=== PATIENT | male | born 1965 ===

== ENCOUNTER 2020-06-28 14:27 | Outpatient (REF) | payer OTHER, SELFPAY | END 2020-06-28 14:28 | disposition home or self-care (01) | LOC: HO.LAB 14:27 | PROVIDERS: Visit Provider Internal Medicine | DX: Z20.822 Contact with and (suspected) exposure to COVID-19 (principal) | CPT/HCPCS: C9803; U0003; U0005 ==

== ENCOUNTER 2020-08-15 09:34 | Outpatient (REF) | payer OTHER, SELFPAY ==
[2020-08-15 09:57] LABS: MANUAL DIFF FLAG NO
[2020-08-15 10:01] LABS: Basophils Percent Auto 0.3 % (0-2); Eosinophils Absolute Auto 0.1 X10*3/uL (0.0-0.4); Eosinophils Percent Auto 1.6 % (0-4); Hematocrit 42.3 % (42-52); Hemoglobin 13.9 g/dl (14.0-18.0); Imm Gran Abs Auto 0.01 X10*3/uL (0.00-0.03); Imm Gran Pct Auto 0.1 % (0.0-0.4); Lymphocytes Absolute Auto 0.8 X10*3/uL (1.2-4.9); Lymphocytes Percent Auto 11.5 % (20-40); Mean Corpuscular HGB Conc 32.9 g/dl (31.0-36.0); Mean Corpuscular Hemoglobin 28.2 pg (27.0-33.0); Mean Corpuscular Volume 85.8 fL (80-98); Mean Platelet Volume 9.8 fL (9.4-12.4); Monocytes Absolute Auto 0.5 X10*3/uL (0.1-1.2); Monocytes Percent Auto 7.9 % (2-11); Neutrophils Absolute Auto 5.3 X10*3/uL (2.0-8.3); Neutrophils Percent Auto 78.6 % (45-73); Platelet Count 280 X10*3/uL (160-400); Red Blood Count 4.93 X10*6/uL (4.60-5.80); Red Cell Distribution Width 14.4 % (11.0-16.0); White Blood Count 6.7 X10*3/uL (4.8-10.8)
[2020-08-15 10:26] LABS: Alanine Aminotransferase 8 U/L (0-40); Albumin Level 4.3 g/dL (3.5-5.0); Alkaline Phosphatase 94 U/L (39-117); Anion Gap 15 (12-20); Aspartate Amino Transferase 10 U/L (5-37); Bilirubin Total 0.8 mg/dL (0.0-1.0); Blood Urea Nitrogen 21 mg/dL (9-16); Calcium 9.3 mg/dL (8.4-10.2); Carbon Dioxide 29 mmol/L (22-29); Chloride 104 mmol/L (96-108); Cholesterol 170 mg/dL; Estimated Glomerular Filt Rate > 60; Glucose Fasting 90 mg/dL (60-99); HDL Cholesterol 44 mg/dL; Iron 60 mcg/dL (45-160); LDL Cholesterol Calculated 113 mg/dl; Percent Iron Saturation 15 % (15-50); Potassium 4.6 mmol/L (3.3-5.1); Sodium 143 mmol/L (135-145); Total Iron Binding Capacity 401 mcg/dL (228-428); Total Protein 7.1 g/dL (6.5-8.0); Triglycerides 68 mg/dL; Unsaturated Iron Binding 341 ug/dL
[2020-08-19 18:51] LABS: Vitamin D 25-OH, D2 <4 ng/mL; Vitamin D 25-OH, D3 30 ng/mL; Vitamin D 25-OH, Total 30 ng/mL (30-100)
[2020-08-20 20:57] LABS: Parathyroid Hormone Related Pr 13 pg/mL (14-27)
== END 2020-08-15 09:35 | disposition home or self-care (01) ==
LOC: HO.LAB 09:34
PROVIDERS: PCP Internal Medicine; Visit Provider Internal Medicine
DX: E66.01 Morbid (severe) obesity due to excess calories (principal); E78.5 Hyperlipidemia, unspecified; E21.3 Hyperparathyroidism, unspecified; E55.9 Vitamin D deficiency, unspecified; D64.9 Anemia, unspecified
CPT/HCPCS: 36415; 80053; 80061; 82306; 82330; 83519; 83540; 85025

== ENCOUNTER → 2020-08-20 13:25 | Outpatient (BNV) | payer OTHER, SELFPAY | PROVIDERS: PCP Internal Medicine; Referring Provider Internal Medicine; Visit Provider Internal Medicine | DX: D50.9 Iron deficiency anemia, unspecified (principal) | CPT/HCPCS: 99213; 99214; G2211 ==

== ENCOUNTER 2021-08-04 14:22 | Outpatient (REF) | payer OTHER, SELFPAY ==
--- NOTE | ~2021-08-04 | US_ITS ---
EXAMINATION: US VENOUS ULTRASOUND WITH DOPPLER LOWER EXTREMITY, LEFT CLINICAL INFORMATION: Left lower extremity COMPARISON: None TECHNIQUE: Ultrasound of the deep veins is performed from the hip to the calf with compression sonography and color and pulse Doppler assessment. Spectral analysis with color-flow imaging is performed. FINDINGS: There is normal venous compression and respiratory variation and augmented flow. The visualized common femoral vein, superficial femoral vein, profunda femoral vein, popliteal vein, and the trifurcation region shows no evidence of deep venous thrombosis. There is no significant popliteal fossa cyst. If the patient's symptoms persist, followup ultrasound in 5 days 7 days might be of value to exclude proximal propagation from a non-visualized calf vein. US/US venous duplex LE LT IMPRESSION: No DVT demonstrated in the left lower extremity.
== END 2021-08-04 14:23 | disposition home or self-care (01) ==
LOC: HO.US 14:22
PROVIDERS: PCP Internal Medicine; Visit Provider Internal Medicine
DX: M79.605 Pain in left leg (principal); R60.0 Localized edema
CPT/HCPCS: 93971

== ENCOUNTER 2021-08-27 12:34 | Outpatient (REF) | payer OTHER, SELFPAY ==
--- NOTE | ~2021-08-27 | US_ITS ---
EXAMINATION: US VENOUS ULTRASOUND WITH DOPPLER LOWER EXTREMITY, LEFT CLINICAL INFORMATION: Pain in left leg. COMPARISON: None TECHNIQUE: Ultrasound of the deep veins is performed from the hip to the calf with compression sonography and color and pulse Doppler assessment. Spectral analysis with color-flow imaging is performed. FINDINGS: There is normal venous compression and respiratory variation and augmented flow. The visualized common femoral vein, superficial femoral vein, profunda femoral vein, popliteal vein, and the trifurcation region shows no evidence of deep venous thrombosis. There is no significant popliteal fossa cyst. Patient is unable to tolerate compression of proximal femoral and profunda veins. There is limited visualized of mid and distal superficial femoral and calf veins. If the patient's symptoms persist, followup ultrasound in 5 days 7 days might be of value to exclude proximal propagation from a non-visualized calf vein. US/US venous duplex LE IMPRESSION: No DVT demonstrated in the left lower extremity. Slightly limited visualization of superficial mid and distal femoral veins and calf veins
--- NOTE | ~2021-08-27 | XR_ITS ---
EXAMINATION: LUMBAR SPINE AND LEFT HIP CLINICAL INFORMATION: Low back pain. COMPARISON: None TECHNIQUE: Left hip 2 views lumbar spine 3 views. FINDINGS: Lumbar spine: There is normal lumbar lordosis. The vertebral heights and alignment is normal. There is mild ventral spondylosis L2-L3, L3-L4 disc levels. There is mild bilateral L5-S1 facet joint hypertrophy and arthropathy. No acute fracture or lytic process seen. The SI joints are symmetrical and normal. XR/XR lumbar spine 2-3V IMPRESSION: Moderate left L3-L4 and L4-L5 facet joint arthropathy. No visible acute fracture or dislocation seen.
--- NOTE | ~2021-08-27 | XR_ITS ---
EXAMINATION: LUMBAR SPINE AND LEFT HIP CLINICAL INFORMATION: Low back pain. COMPARISON: None TECHNIQUE: Left hip 2 views lumbar spine 3 views. FINDINGS: Lumbar spine: There is normal lumbar lordosis. The vertebral heights and alignment is normal. There is mild ventral spondylosis L2-L3, L3-L4 disc levels. There is mild bilateral L5-S1 facet joint hypertrophy and arthropathy. No acute fracture or lytic process seen. The SI joints are symmetrical and normal. XR/XR hip LT min 2V IMPRESSION: Moderate left L3-L4 and L4-L5 facet joint arthropathy. No visible acute fracture or dislocation seen.
== END 2021-08-27 12:35 | disposition home or self-care (01) ==
LOC: HO.US 12:34
PROVIDERS: PCP Internal Medicine; Visit Provider Internal Medicine
DX: M54.50 Low back pain, unspecified (principal); M25.552 Pain in left hip; M79.605 Pain in left leg
CPT/HCPCS: 72100; 73502; 93971

== ENCOUNTER 2022-01-23 17:20 | Inpatient (IN) | payer OTHER, SELFPAY ==
[2022-01-23] VITALS (9 sets, daily range): BP systolic 104–138; BP diastolic 54–75; PULSE 88–148; RESP 15–21; TEMP 36.7–37.6; O2SAT 96–98; BMI 60.9
--- NOTE | 2022-01-23 | ECG_ITS ---
Test Reason : TACHYCARDIA Blood Pressure : / mmHG Vent. Rate : 116 BPM Atrial Rate : 293 BPM P-R Int : 000 ms QRS Dur : 090 ms QT Int : 244 ms P-R-T Axes : 261 030 229 degrees QTc Int : 339 ms Atrial flutter with variable A-V block Nonspecific ST and T wave abnormality RSR' or QR pattern in V1 suggests right ventricular conduction delay Abnormal ECG When compared with ECG of 23-JAN-2022 18:09, No significant changes seen Referred By: Nani Holloway Electronically Signed By:MAURICE DUMAS MD
--- NOTE | ~2022-01-23 | CT_ITS ---
EXAMINATION: CT HEAD WITHOUT CONTRAST CLINICAL INFORMATION: Headache COMPARISON: None TECHNIQUE: Contiguous axial imaging was performed from the skull base to vertex without intravenous administration of contrast. This CT examination was performed using dose optimization techniques as appropriate, variously including the following: *Automated exposure control *Adjustment of mA and/or kV according to patient size (this includes techniques or standardized protocols for targeted exams where dose is matched to indication/reason for exam; i.e. extremities or head) *Use of iterative reconstruction technique DLP: 903 mGy-cm FINDINGS: RESULTS: There is no evidence of acute intracranial hemorrhage, acute large vessel infarct, midline shift or mass effect. The lo-white differentiation is preserved. The ventricles and sulci are within normal limits in size and configuration. There is no evidence of hydrocephalus. There are no extraaxial collections. Osseous structures are intact. Paranasal sinuses and mastoid air cells are well aerated. CT/CT head/brain wo IV con IMPRESSION: No acute intracranial pathology.
--- NOTE | ~2022-01-23 | CT_ITS ---
EXAMINATION: CT ANGIOGRAM OF THE CHEST WITH AND WITHOUT CONTRAST (CT PULMONARY ANGIOGRAM FOR PE) CLINICAL INFORMATION: Reason for Exam + dimer, sob COMPARISON: None TECHNIQUE: Prior to contrast administration, noncontrast localization images were obtained. Subsequently, multidetector volumetric imaging was performed from the thoracic inlet to below the diaphragms following the administration of 75 mL Omnipaque 350 intravenous contrast. No contrast reaction reported Sagittal, coronal, and MIP oblique sagittal reformatted images were obtained on the CT workstation, uploaded to PACS, and reviewed. This CT examination was performed using dose optimization techniques as appropriate, variously including the following: *Automated exposure control *Adjustment of mA and/or kV according to patient size (this includes techniques or standardized protocols for targeted exams where dose is matched to indication/reason for exam; i.e. extremities or head) *Use of iterative reconstruction technique Total exam dose-length product 687 mGy-cm FINDINGS: QUALITY OF STUDY/CONTRAST BOLUS: Suboptimal. PULMONARY ARTERIES: No central or segmental pulmonary emboli. THORACIC AORTA: No aneurysm or dissection. LUNG: No focal consolidation, nodules or masses. PLEURA: No pleural effusion or pneumothorax. MEDIASTINUM: Enlarged heart size. No pericardial effusion. Small calcified mediastinal and right hilar lymph nodes.. No evidence of septal bowing or right heart strain. CHEST WALL/AXILLA: No axillary or internal mammary lymphadenopathy. OSSEOUS STRUCTURES: No acute or suspicious osseous abnormality. UPPER ABDOMEN: Large hiatal hernia. No reflux of contrast into the hepatic veins to suggest elevated right heart pressures. Multiple nonobstructing left renal calculi. CT/CT angio chest PE protocol IMPRESSION: 1. No pulmonary embolism. 2. Large hiatal hernia. 3. Multiple nonobstructing left renal calculi. VTE: negative
--- NOTE | ~2022-01-23 | XR_ITS ---
EXAMINATION: XR CHEST CLINICAL INFORMATION: Chest pain COMPARISON: 05/02/2008 TECHNIQUE: Frontal view of the chest was obtained. FINDINGS: There is mild cardiomegaly. Moderate sized hiatal hernia is present. No infiltrates, effusions or lung masses are seen. XR/XR chest 1V IMPRESSION: Mild cardiomegaly. No acute intrathoracic disease.
--- NOTE | 2022-01-23 18:06 | PC.NURSE ---
Provider Dr. Tavarez and Shelley Silva aware of patients HR and are at bedside
--- NOTE | 2022-01-23 18:08 | ECG_ITS ---
Test Reason : DYSPENIA Blood Pressure : / mmHG Vent. Rate : 141 BPM Atrial Rate : 282 BPM P-R Int : 000 ms QRS Dur : 084 ms QT Int : 252 ms P-R-T Axes : 253 029 241 degrees QTc Int : 385 ms Atrial flutter with variable A-V block Nonspecific ST and T wave abnormality RSR' or QR pattern in V1 suggests right ventricular conduction delay Abnormal ECG No previous ECGs available Referred By: Annie Silva Electronically Signed By:MAURICE DUMAS MD
[2022-01-23] MEDS: Adenosine 6 MG/2 ML VIAL IVPUSH (18:25)
[2022-01-23 18:27] LABS: MANUAL DIFF FLAG NO
[2022-01-23 18:29] LABS: Basophils Absolute Auto 0.1 X10*3/uL (0.0-0.2); Basophils Percent Auto 0.6 % (0-2); Eosinophils Absolute Auto 0.1 X10*3/uL (0.0-0.4); Imm Gran Abs Auto 0.05 X10*3/uL (0.00-0.03); Imm Gran Pct Auto 0.6 % (0.0-0.4); Lymphocytes Absolute Auto 0.7 X10*3/uL (1.2-4.9); Lymphocytes Percent Auto 8.9 % (20-40); Mean Corpuscular HGB Conc 26.5 g/dl (31.0-36.0); Mean Corpuscular Hemoglobin 15.6 pg (27.0-33.0); Monocytes Absolute Auto 0.9 X10*3/uL (0.1-1.2); Monocytes Percent Auto 10.5 % (2-11); NRBC Pct Auto 0.2 /100WBC (0.0-0.2); Neutrophils Absolute Auto 6.3 x10*3/uL (2.0-8.3); Neutrophils Percent Auto 78.4 % (45-73); Platelet Count 354 X10*3/uL (160-400); Red Blood Count 3.15 X10*6/uL (4.60-5.80); Red Cell Distribution Width 21.6 % (11.0-16.0); White Blood Count 8.1 X10*3/uL (4.8-10.8)
[2022-01-23 18:36] LABS: Mean Corpuscular Volume 58.7 fL (80.0-98.0)
[2022-01-23 18:38] LABS: D Dimer High Sensitivity 320 NG/ML
[2022-01-23] MEDS: Adenosine 6 MG/2 ML VIAL 12 MG IVPUSH (18:38)
[2022-01-23 18:40] LABS: Hematocrit 18.5 % (42.0-52.0); Hemoglobin 4.9 g/dl (14.0-18.0)
[2022-01-23] MEDS: dilTIAZem HCL 50 MG/10 ML VIAL 10 MG IVPUSH (18:41)
--- NOTE | 2022-01-23 18:45 | ED_ITS ---
HPI - SOB/Dyspnea General Chief Complaint: Dyspnea Stated Complaint: difficulty breathing dry mouth chest pain Time Seen by Provider: 01/23/22 17:58 Source: patient Mode of arrival: ambulatory Limitations: no limitations History of Present Illness HPI Narrative: 56-year-old male history of hypertension presenting to the emergency department with concerns of chest pain, shortness of breath, palpitations x2 days pr ogressively worsening. Patient tells me that since yesterday he has been having significant palpitations that are very uncomfortable and have been prohibiting him from sleeping, he tells me he had a sleepless night. He reports substernal nonradiating chest pain. And shortness of breath with exertion. Tells me he is not short of breath at rest. Patient tells me that this is never happened to h im before. Patient also notices that his mouth has been dry for the past month or so. Patient is not anticoagulated. No history of DVT or PE. To note patient also has vague complaints of occipital headache. Denies cough, nausea, vomiting, abdominal pain, vision changes, weakness, dizziness. MD elicited complaint: shortness of breath and chest pain Related Data Home Medications Medication Instructions Recorded Confirmed aspirin 325 mg tablet 325 mg PO BID PRN Pain (Scale 01/23/22 01/23/22 Score 1-3) [id number] 0.4 mg-calcium 162 1 tab PO 2XW 01/23/22 01/23/22 mg-iron 18 ti-[id number] tablet omeprazole 20 mg capsule,delayed 20 mg PO DAILY@0630 01/23/22 01/23/22 release sulindac 200 mg tablet 1 tab PO BID 01/23/22 01/23/22 Previous Rx's Medication Instructions Recorded lidocaine 5 % topical patch 1 patch topical DAILY 30 days #30 12/29/20 ea hydrochlorothiazide 25 mg tablet 25 mg PO DAILY 90 days #90 tabs 03/14/21 Allergies Allergy/AdvReac Type Severity Reaction Status Date / Time Penicillins [PENICILLINS] Allergy Intermediate ITCHING Verified 08/26/21 13:50 SEAFOOD Allergy Intermediate ITCHING/THROAT Uncoded 08/26/21 13:50 SWELLING shellfish Allergy Intermediate rash Uncoded 08/26/21 13:50 Review of Systems Review of Systems: Constitutional : No Weight loss, No Fever, No Chills, No Fatigue, No Malaise ENT/Mouth : No sore throat, No Rhinorrhea Eyes: No Eye Pain, No Swelling, No Redness Cardiovascular : + Chest Pain, + SOB, + Dyspnea on Exertion, No Orthopnea, No Edema, No Palpitations Respiratory : No Cough, No Sputum, No Wheezing Gastrointestinal : No Nausea, No Vomiting, No Diarrhea, No Constipation, No abdominal Pain, No Hematochezia, No Melena Genitourinary : No Dysuria, No Urinary Frequency, No Hematuria, Musculoskeletal : No joint pain, No Myalgias, No Joint Swelling Skin : No Skin Lesions, No rash Neuro : No Weakness, No Numbness, No Dizziness, + Headache Psych : No Anxiety/Panic, No Depression All other systems reviewed and are negative Yes all other systems are reviewed and are negative [facility] Past Medical History Attestation statement: The following information was validated with the patient. Source: old records reviewed and nursing notes reviewed Medical History Encounter for physical examination Hypoparathyroidism after procedure Iron deficiency anemia Left leg pain Renal calculi Super-super obese Surgical History History of parathyroid surgery Family History Family History Mother Hypertension Father Colon cancer, Onset Age: 82 Stroke Social History Social History Housing: House Alcohol intake: former Patient Tobacco Use Status: Former Tobacco user Tobacco use type: Cigarette e-Cigarette/Vaping Use: Never Used Second Hand Smoke Exposure: No Advance Directives: No Advance Directives Information Provided: No service: No Current occupational status: unemployed Cognitive needs: Yes Hearing needs: No Vision needs: Yes Physical Exam 2 Vital Signs: Vital Signs: Last Vital Signs Temp 99.3 F 01/23/22 22:06 Pulse 117 H 01/23/22 22:06 Resp 20 01/23/22 22:06 BP 134/69 01/23/22 22:06 Pulse Ox 97 01/23/22 22:06 O2 Del Method 01/23/22 22:06 BMI result Body Mass Index 60.9 Patient's vital significant for tachycardia. Appearance: Alert.? Oriented X3.? No acute distress.? Head: Normocephalic, atraumatic, no step-offs or deformities Eyes: Pupils equal, round and reactive to light.? Neck: Normal inspection.? Neck supple.? CVS: Rapid regular rhythm suspected sinus tachycardia.? Pulses irregular.? Respiratory: No respiratory distress.? Breath sounds normal.? Abdomen: Soft and nontender.? Skin: Skin warm and dry.? Normal skin color.? Normal skin turgor.? Extremities: No lower extremity edema.? No calf ttp. 5/5 strength to bilateral upper and lower extremities Rectal exam: no acute findings, no gross blood on exam,no palpable hemorrhoids, lumps or masses. Neuro: Oriented X 3.? No motor deficit.? No sensory deficit. CN 2-12 intact Course Reevaluation(s) Reevaluation #1: Patient's CBC with a microcytic anemia 4.9, 18.54 hemoglobin and hematocrit. This deviates significantly from patient's baseline. Will obtain OBS to rule out rectal bleeding. Chemistry with no acute findings. Troponin of 12.7, BNP of 96, unlikely that this is ACS or CHF. Patient's D-dimer is elevated therefore will order a CTA to rule out PE. I obtained verbal and written consent for blood products, patient verbalizes understanding, answered all questions. 2 units of packed red blood cells ordered. Patient is now in a atrial flutter with a rate of 130s 140s, rate is slowing down, patient feels slightly better, on a Cardizem drip. I did reach out to Cardiology to discuss this case with them they tell me that patient should be transfused patient's heart rate should respond. Time: 19:16 Reevaluation #2: Chest x-ray showing mild cardiomegaly no acute intrathoracic disease. Head CT with no acute findings. CTA with no pulmonary embolism, large hiatal hernia, nonobstructing left renal stones. VT negative. Time: 20:28 Reevaluation #3: OBS + will reach out to GI. Time: 21:40 Additional Reevaluation(s): Spoke to Dr. Haynes no need to do emergent colonoscopy, patient and will be evaluated by GI in the hospital. Medications Administered Generic Name Dose Route Start Last Admin Trade Name Freq PRN Reason Stop Dose Admin Diltiazem HCl 125 mg/ Sodium 125 mls @ 0 mls/hr 01/23/22 19:00 01/23/22 19:07 Chloride IVCONT 10 mg/hr .Q0M JLUIS 10 mls/hr Administration Protocol Per Protocol Discontinued Medications Generic Name Dose Route Start Last Admin Trade Name Yen PRN Reason Stop Dose Admin Adenosine 6 mg 01/23/22 18:08 01/23/22 18:25 Adenosine 6 Mg/2 Ml Vial IVPUSH 01/23/22 18:09 6 mg STAT STA Administration Adenosine 12 mg 01/23/22 18:44 01/23/22 18:38 Adenosine 6 Mg/2 Ml Vial IVPUSH 01/23/22 18:45 12 mg ONCE ONE Administration Diltiazem HCl 10 mg 01/23/22 18:38 01/23/22 18:41 Diltiazem Hcl 50 Mg/10 Ml Vial IVPUSH 01/23/22 18:39 10 mg STAT STA Administration Iohexol 100 ml 01/23/22 20:05 01/23/22 20:05 Iohexol 350 Mg/Ml 100 Ml Infus..Btl IV 01/23/22 20:06 75 ml ONCE ONE Administration Metoprolol Tartrate 2.5 mg 01/23/22 21:57 01/23/22 22:08 Metoprolol Tartrate 5 Mg/5 Ml Vial IVPUSH 01/23/22 21:58 2.5 mg ONCE ONE Administration MDM - SOB/Dyspnea MDM Narrative Medical decision making narrative: 1771 56-year-old male presents with chest pain, shortness of breath, palpitations x2 days progressively worsening. Physical examination with a rapid regular rhythm rhythm likely sinus tachycardia. Lungs clear. Abdomen soft nontender nondistended. 2+ nonpitting edema to bilateral lower extremities. Patient is noted to have a heart rate in the 140s to 160s. However patient appears well, nontoxic. 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 Immediately 6 of adenosine was ordered, with no response, an additional 12 was given which slowed the rhythm down show an underlying rhythm of atrial flutter. At this time Cardizem 10 mg ordered and Cardizem drip ordered. Will rule out PE, ACS, CHF. Will rule out electrolyte abnormalities. Medical Records Attestation: I reviewed the patient's medical records. Lab Data Attestation: I reviewed the patient's lab results. Result diagrams: 01/23/22 18:22 01/23/22 18:22 Labs: Lab Results 01/23/22 01/23/22 01/23/22 Range/Units 18:22 18:22 18:22 WBC 8.1 (4.8-10.8) X10*3/uL RBC 3.15 L (4.60-5.80) X10*6/uL Hgb 4.9 L* (14.0-18.0) g/dl Hct 18.5 L* (42.0-52.0) % MCV 58.7 L (80.0-98.0) fL MCH 15.6 L (27.0-33.0) pg MCHC 26.5 L (31.0-36.0) g/dl RDW 21.6 H (11.0-16.0) % Plt Count 354 (160-400) X10*3/uL MPV 9.0 L (9.4-12.4) fL Immature Gran % (Auto) 0.6 H (0.0-0.4) % Neut % (Auto) 78.4 H (45-73) % Lymph % (Auto) 8.9 L (20-40) % Mineral % (Auto) 10.5 (2-11) % Eos % (Auto) 1.0 (0-4) % Baso % (Auto) 0.6 (0-2) % Lymph # (Auto) 0.7 L (1.2-4.9) X10*3/uL Mineral # (Auto) 0.9 (0.1-1.2) X10*3/uL Eos # (Auto) 0.1 (0.0-0.4) X10*3/uL Baso # (Auto) 0.1 (0.0-0.2) X10*3/uL Abs Immat Gran (auto) 0.05 H (0.00-0.03) X10*3/uL Absolute Neuts (auto) 6.3 (2.0-8.3) x10*3/uL Absolute Nucleated RBC 0.020 H (0.0-0.012) X10*3/uL Nucleated RBC % (auto) 0.2 (0.0-0.2) /100WBC D-Dimer High Sensitivty 320 NG/ML Sodium 139 (135-145) mmol/L Potassium 4.1 (3.3-5.1) mmol/L Chloride 105 (96-108) mmol/L Carbon Dioxide 25 (22-29) mmol/L Anion Gap 13 (12-20) BUN 16 (9-16) mg/dL Creatinine 0.80 (0.5-1.4) mg/dL Estim Creat Clear Calc 154.2 Estimated GFR > 60 Random Glucose 97 (60-115) mg/dL Calcium 8.9 (8.4-10.2) mg/dL Magnesium 1.6 (1.6-2.6) mg/dL Total Bilirubin 0.4 (0.0-1.0) mg/dL AST 8 (5-37) U/L ALT 9 (0-40) U/L Alkaline Phosphatase 104 (39-117) U/L Troponin I High Sens (<3.5-35.0) ng/L B-Natriuretic Peptide (<100) pg/mL Total Protein 6.6 (6.5-8.0) g/dL Albumin 4.0 (3.5-5.0) g/dL Stool Occult Blood (NEGATIVE) Blood Type Antibody Screen Crossmatch 01/23/22 01/23/22 01/23/22 Range/Units 18:22 18:22 19:22 WBC (4.8-10.8) X10*3/uL RBC (4.60-5.80) X10*6/uL Hgb (14.0-18.0) g/dl Hct (42.0-52.0) % MCV (80.0-98.0) fL MCH (27.0-33.0) pg MCHC (31.0-36.0) g/dl RDW (11.0-16.0) % Plt Count (160-400) X10*3/uL MPV (9.4-12.4) fL Immature Gran % (Auto) (0.0-0.4) % Neut % (Auto) (45-73) % Lymph % (Auto) (20-40) % Mineral % (Auto) (2-11) % Eos % (Auto) (0-4) % Baso % (Auto) (0-2) % Lymph # (Auto) (1.2-4.9) X10*3/uL Mineral # (Auto) (0.1-1.2) X10*3/uL Eos # (Auto) (0.0-0.4) X10*3/uL Baso # (Auto) (0.0-0.2) X10*3/uL Abs Immat Gran (auto) (0.00-0.03) X10*3/uL Absolute Neuts (auto) (2.0-8.3) x10*3/uL Absolute Nucleated RBC (0.0-0.012) X10*3/uL Nucleated RBC % (auto) (0.0-0.2) /100WBC D-Dimer High Sensitivty NG/ML Sodium (135-145) mmol/L Potassium (3.3-5.1) mmol/L Chloride (96-108) mmol/L Carbon Dioxide (22-29) mmol/L Anion Gap (12-20) BUN (9-16) mg/dL Creatinine (0.5-1.4) mg/dL Estim Creat Clear Calc Estimated GFR Random Glucose (60-115) mg/dL Calcium (8.4-10.2) mg/dL Magnesium (1.6-2.6) mg/dL Total Bilirubin (0.0-1.0) mg/dL AST (5-37) U/L ALT (0-40) U/L Alkaline Phosphatase (39-117) U/L Troponin I High Sens 12.7 (<3.5-35.0) ng/L B-Natriuretic Peptide 96 (<100) pg/mL Total Protein (6.5-8.0) g/dL Albumin (3.5-5.0) g/dL Stool Occult Blood (NEGATIVE) Blood Type A Positive Antibody Screen NEGATIVE Crossmatch See Detail 01/23/22 Range/Units 21:44 WBC (4.8-10.8) X10*3/uL RBC (4.60-5.80) X10*6/uL Hgb (14.0-18.0) g/dl Hct (42.0-52.0) % MCV (80.0-98.0) fL MCH (27.0-33.0) pg MCHC (31.0-36.0) g/dl RDW (11.0-16.0) % Plt Count (160-400) X10*3/uL MPV (9.4-12.4) fL Immature Gran % (Auto) (0.0-0.4) % Neut % (Auto) (45-73) % Lymph % (Auto) (20-40) % Mineral % (Auto) (2-11) % Eos % (Auto) (0-4) % Baso % (Auto) (0-2) % Lymph # (Auto) (1.2-4.9) X10*3/uL Mineral # (Auto) (0.1-1.2) X10*3/uL Eos # (Auto) (0.0-0.4) X10*3/uL Baso # (Auto) (0.0-0.2) X10*3/uL Abs Immat Gran (auto) (0.00-0.03) X10*3/uL Absolute Neuts (auto) (2.0-8.3) x10*3/uL Absolute Nucleated RBC (0.0-0.012) X10*3/uL Nucleated RBC % (auto) (0.0-0.2) /100WBC D-Dimer High Sensitivty NG/ML Sodium (135-145) mmol/L Potassium (3.3-5.1) mmol/L Chloride (96-108) mmol/L Carbon Dioxide (22-29) mmol/L Anion Gap (12-20) BUN (9-16) mg/dL Creatinine (0.5-1.4) mg/dL Estim Creat Clear Calc Estimated GFR Random Glucose (60-115) mg/dL Calcium (8.4-10.2) mg/dL Magnesium (1.6-2.6) mg/dL Total Bilirubin (0.0-1.0) mg/dL AST (5-37) U/L ALT (0-40) U/L Alkaline Phosphatase (39-117) U/L Troponin I High Sens (<3.5-35.0) ng/L B-Natriuretic Peptide (<100) pg/mL Total Protein (6.5-8.0) g/dL Albumin (3.5-5.0) g/dL Stool Occult Blood POSITIVE (NEGATIVE) Blood Type Antibody Screen Crossmatch Critical Care Time Critical Care Time Critical Care Time: Yes Total Critical Care Time: 60 Attestation: I attest to this time spent taking care of the patient, obtaining history, physical, reviewing labs, imaging, speaking to my attending, speaking to specialist. Discharge Plan Discharge Clinical Impression: Atrial flutter, Anemia, Chest pain, Shortness of breath, Palpitations, GI bleed Patient Disposition: Admitted As Inpatient
[2022-01-23 18:49] LABS: Alanine Aminotransferase 9 U/L (0-40); Alkaline Phosphatase 104 U/L (39-117); Anion Gap 13 (12-20); Aspartate Amino Transferase 8 U/L (5-37); Bilirubin Total 0.4 mg/dL (0.0-1.0); Blood Urea Nitrogen 16 mg/dL (9-16); Calcium 8.9 mg/dL (8.4-10.2); Carbon Dioxide 25 mmol/L (22-29); Chloride 105 mmol/L (96-108); Creatinine Clr Calc Pharmacy 154.2; Estimated Glomerular Filt Rate > 60; Glucose Random 97 mg/dL (60-115); Magnesium 1.6 mg/dL (1.6-2.6); Potassium 4.1 mmol/L (3.3-5.1); Sodium 139 mmol/L (135-145); Total Protein 6.6 g/dL (6.5-8.0)
[2022-01-23 18:50] LABS: B Type Natriuretic Peptide 96 pg/mL (<100)
[2022-01-23 18:56] LABS: Troponin-I High Sensitivity 12.7 ng/L (<3.5-35.0)
[2022-01-23] MEDS: dilTIAZem HCL 125 MG in 0.9 % Sodium Chloride 100 ML 10 MG IVCONT (19:07)
--- NOTE | 2022-01-23 19:09 | PC.NURSE ---
20g IV access established in left AC by this RN. Was given Adenosine 6mg, then Adenosine 12mg as ordered by MAHIN Silva. Diltiazem 10mg administered via IV push. Diltiazem drip initiated at 19:07 on 01/23/22 by this RN. Patient's is at bedside. Consent obtained & signed to receive blood products for low Hematocrit/Hemoglobin. HR 130-140s at this time. Primary RN (Dmitriy) aware.
[2022-01-23] MEDS: iohexoL 350 MG/ML 100 ML INFUS..BTL IV (20:05)
--- NOTE | 2022-01-23 20:07 | PC.NURSE ---
patient alert, oriented x4. he endorses 6-7/10 chest tightness radiating to his back. HR aflutter 120s-130s on max dilt drip 15mg/hr.
--- NOTE | 2022-01-23 20:47 | PHA.MEDREC ---
Pharmacy Consult ? Medication Reconciliation Pharmacy has completed the medication reconciliation. Spoke with patient in the ED
[2022-01-23 21:51] LABS: OBS1 POSITIVE (NEGATIVE)
[2022-01-23 21:52] LABS: OBS Int Ctl Valid YES
--- NOTE | 2022-01-23 22:07 | PM.IMHP ---
History of Present Illness Date of Service: 01/23/22 Chief Complaint: palpitations 56-year-old male with past medical history of hypertension, presents the hospital with complaints of chest discomfort and palpitations. Patient reports that his symptoms started 2 days with progressively worsening symptoms. He reports the pain/discomfort in the chest is on the left side, worse with deep inspiration, nonradiating, constant, rest. He also reports that he has pain when he moves. He denies any dizziness, he has been feeling short of breath with minimal exertion. Reports chronic anemia since childhood, for which he takes artery supplement but has not been taking his iron supplement as he was told that his levels were better on previous visits with his doctor. Denies any melena, but reports sometimes when he is constipated he has some bleeding mostly when he wipes. Patient denies any abdominal pain nausea or vomiting, no diarrhea constipation, no urinary symptoms and no lower extremity edema. On arrival to the ED patient was found to have a heart rate in the 140s to 150s, patient started on Cardizem drip with improvement of his heart rate. Labs on arrival significant for hemoglobin of 4.9 with a baseline of around 10, hematocrit of 18.5, stool occult positive. Chest CT angiogram shows no pulmonary embolism, large hiatal hernia, multiple nonobstructing left renal calculi Troponin of 12.7, BNP of 96 Review of Systems Review of Systems: Yes all other systems are reviewed and are negative [facility] Medical History Encounter for physical examination Hypoparathyroidism after procedure Iron deficiency anemia Left leg pain Renal calculi Super-super obese Family History Mother Hypertension Father Colon cancer, Onset Age: 82 Stroke Surgical History History of parathyroid surgery Social History Household Members: Spouse Housing: House Do you presently have visiting nurse or other home services: No Alcohol intake: former Patient Tobacco Use Status: Former Tobacco user Tobacco use type: Cigarette Smoked in Last 30 Days: No e-Cigarette/Vaping Use: Never Used Patient Interested in Nicotine Replacement: No Patient Given Instructions on How to Stop Smoking: No Second Hand Smoke Exposure: No Use of substances other than those prescribed or required for medical reasons: No Currently Displaying Signs/Symptoms of Drug Intoxication Withdrawal: No Any prior treatment program specific to substance use: No Have you been hit, kicked, punched, or otherwise hurt by someone within the past year? If so, by whom?: No Do you feel safe in your current relationship?: Yes Is there a partner from a previous relationship who is making you feel unsafe now?: No Are you made to feel afraid or neglected: No Advance Directives: No Advance Directives Information Provided: No Do you have thoughts of harming others: None Do you have a plan to hurt others: No Plan Recently lost weight without trying: No Eating poorly because of decreased appetite: No Nutrition Risks: No Nutritional Risk Poor oral hygiene: No service: No Current occupational status: unemployed Cognitive needs: Yes Hearing needs: No Vision needs: Yes Meds Allergies Allergy/AdvReac Type Severity Reaction Status Date / Time Penicillins [PENICILLINS] Allergy Intermediate ITCHING Verified 08/26/21 13:50 SEAFOOD Allergy Intermediate ITCHING/THROAT Uncoded 08/26/21 13:50 SWELLING shellfish Allergy Intermediate rash Uncoded 08/26/21 13:50 Active Medications: Current Medications Diltiazem HCl 125 mg/ Sodium (Chloride) 125 mls @ 0 mls/hr IVCONT .Q0M [facility]; Protocol Last Admin: 01/23/22 19:07 Dose: 10 mg/hr, 10 mls/hr Pharmacy Consult (Consult Rx Perform Med Rec) 1 each MISCELLANE ONCE PRN PRN Reason: Consult order Home Medications Medication Instructions Recorded Confirmed Last Taken Type aspirin 325 mg tablet 325 mg PO BID PRN Pain (Scale 01/23/22 01/23/22 01/23/22 History Score 1-3) [id number] 0.4 mg-calcium 162 1 tab PO 2XW 01/23/22 01/23/22 Unknown History mg-iron 18 [id number] tablet omeprazole 20 mg capsule,delayed 20 mg PO DAILY@0630 01/23/22 01/23/22 01/22/22 History release sulindac 200 mg tablet 1 tab PO BID 01/23/22 01/23/22 01/22/22 History Physical Exam Vital Signs and Narrative: Vital Signs: Last Vital Signs Temp 99.6 F 11/25/22 21:37 Pulse 113 H 01/23/22 21:37 Resp 20 01/23/22 21:37 BP 136/65 01/23/22 21:37 Pulse Ox 98 01/23/22 21:37 O2 Del Method 01/23/22 21:37 BMI result Body Mass Index 60.9 Const: General: cooperative and no acute distress Orientation/consciousness: patient oriented x3 Eyes: General: appearance normal, both eyes and all related structures Resp: Effort & Inspection: normal respiratory effort Auscultation: clear to auscultation bilaterally Cardio: Other: Irregular rate and rhythm GI: Palpation (GI): Soft to palpation Auscultation: normal bowel sounds Skin: General skin exam: no rashes or lesions noted Neuro: General: patient oriented x3 Cognition (Neuro): normal cognition Extrem: General: Yes normal to inspection and Yes no pedal edema Results Labs CBC and Chem 7: 01/23/22 18:22 01/23/22 18:22 Labs: Laboratory Results - last 24 hr 01/23/22 01/23/22 01/23/22 18:22 18:22 18:22 MCV 58.7 L MCH 15.6 L MCHC 26.5 L RDW 21.6 H Plt Count 354 MPV 9.0 L Immature Gran % (Auto) 0.6 H Neut % (Auto) 78.4 H Lymph % (Auto) 8.9 L Ada % (Auto) 10.5 Eos % (Auto) 1.0 Baso % (Auto) 0.6 Lymph # (Auto) 0.7 L Ada # (Auto) 0.9 Eos # (Auto) 0.1 Baso # (Auto) 0.1 Abs Immat Gran (auto) 0.05 H Absolute Neuts (auto) 6.3 Absolute Nucleated RBC 0.020 H Nucleated RBC % (auto) 0.2 D-Dimer High Sensitivty 320 Anion Gap 13 Estim Creat Clear Calc 154.2 Estimated GFR > 60 Random Glucose 97 Calcium 8.9 Magnesium 1.6 Total Bilirubin 0.4 AST 8 ALT 9 Alkaline Phosphatase 104 Troponin I High Sens B-Natriuretic Peptide Total Protein 6.6 Albumin 4.0 Stool Occult Blood Blood Type Antibody Screen Crossmatch 01/23/22 01/23/22 01/23/22 18:22 18:22 19:22 MCV MCH MCHC RDW Plt Count MPV Immature Gran % (Auto) Neut % (Auto) Lymph % (Auto) Ada % (Auto) Eos % (Auto) Baso % (Auto) Lymph # (Auto) Ada # (Auto) Eos # (Auto) Baso # (Auto) Abs Immat Gran (auto) Absolute Neuts (auto) Absolute Nucleated RBC Nucleated RBC % (auto) D-Dimer High Sensitivty Anion Gap Estim Creat Clear Calc Estimated GFR Random Glucose Calcium Magnesium Total Bilirubin AST ALT Alkaline Phosphatase Troponin I High Sens 12.7 B-Natriuretic Peptide 96 Total Protein Albumin Stool Occult Blood Blood Type A Positive Antibody Screen NEGATIVE Crossmatch See Detail 01/23/22 21:44 MCV MCH MCHC RDW Plt Count MPV Immature Gran % (Auto) Neut % (Auto) Lymph % (Auto) Ada % (Auto) Eos % (Auto) Baso % (Auto) Lymph # (Auto) Ada # (Auto) Eos # (Auto) Baso # (Auto) Abs Immat Gran (auto) Absolute Neuts (auto) Absolute Nucleated RBC Nucleated RBC % (auto) D-Dimer High Sensitivty Anion Gap Estim Creat Clear Calc Estimated GFR Random Glucose Calcium Magnesium Total Bilirubin AST ALT Alkaline Phosphatase Troponin I High Sens B-Natriuretic Peptide Total Protein Albumin Stool Occult Blood POSITIVE Blood Type Antibody Screen Crossmatch Imaging Radiologist's Impressions: Impressions Chest X-Ray 01/23/22 19:05 IMPRESSION: Mild cardiomegaly. No acute intrathoracic disease. Head CT 01/23/22 20:04 IMPRESSION: No acute intracranial pathology. Chest CTA 01/23/22 20:06 IMPRESSION: 1. No pulmonary embolism. 2. Large hiatal hernia. 3. Multiple nonobstructing left renal calculi. VTE: negative Assessment and Plan (1) New onset atrial flutter: Status: Acute (2) Microcytic anemia: Status: Acute (3) Positive occult stool blood test: Status: Acute Plan 56-year-old male with past medical history of anemia presents to the hospital with palpitations, chest pain found to have new onset a flutter, as well as acute microcytic anemia # new onset a flutter - likely triggered by his severe anemia - patient on Cardizem drip - will start him on metoprolol - chads Vasc score of 1 for hx of HTN - cardiology consulted - echo ordered - titrate Cardizem drip as tolerated # acute microcytic anemia - per patient has chronic underlying microcytic anemia but has not taking any have his iron supplements - this some patient receiving PRBC, follow H&H post transfusion - GI consult for further workup - will obtain ferritin level # positive occult stool blood test - patient denies melena, reports that sometimes on constipation he does have some bleeding when he wipes - GI consulted - follow CBC - hold aspirin # hypertension - stable - resume home medications DVT prophylaxis: SCDs Given patient's new onset a flutter and need for further workup as well as acute microcytic anemia patient require minimum 2 night inpatient hospital stay for further management and monitoring Quality Stroke Does the patient have a stroke diagnosis?: No VTE Prior VTE?: No VTE Risk Level:: Medical - moderate - high VTE Device Contraindication: N/A - Device Ordered VTE Drug Contraindication: Treatment Not Indicated
[2022-01-23] MEDS: Metoprolol Tartrate 5 MG/5 ML VIAL 2.5 MG IVPUSH (22:08)
[2022-01-23 23:35] LABS: COVID-19 Test Negative (Negative)
[2022-01-24] VITALS (16 sets, daily range): BP systolic 112–166; BP diastolic 50–101; PULSE 83–120; RESP 16–22; TEMP 35.7–37.4; O2SAT 94–97; BMI 60.9
[2022-01-24 00:26] LABS: Thyroid Stimulating Hormone 1.24 uIU/mL (0.32-4.0)
[2022-01-24] MEDS: 0.9 % Sodium Chloride Flush 3 ML SYRINGE IVFLUSH (00:29)
[2022-01-24] MEDS: Lactated Ringers 1,000 ML 100 ML IVCONT (00:31)
[2022-01-24 06:45] LABS: MANUAL DIFF FLAG NO
[2022-01-24 06:48] LABS: Basophils Absolute Auto 0.1 X10*3/uL (0.0-0.2); Basophils Percent Auto 0.8 % (0-2); Eosinophils Percent Auto 0.5 % (0-4); Hematocrit 21.1 % (42.0-52.0); Imm Gran Abs Auto 0.03 X10*3/uL (0.00-0.03); Imm Gran Pct Auto 0.4 % (0.0-0.4); Lymphocytes Absolute Auto 0.8 X10*3/uL (1.2-4.9); Lymphocytes Percent Auto 10.6 % (20-40); Mean Corpuscular HGB Conc 27.5 g/dl (31.0-36.0); Mean Corpuscular Hemoglobin 17.6 pg (27.0-33.0); Mean Platelet Volume 9.4 fL (9.4-12.4); Monocytes Absolute Auto 0.7 X10*3/uL (0.1-1.2); Monocytes Percent Auto 8.6 % (2-11); NRBC Pct Auto 0.3 /100WBC (0.0-0.2); Neutrophils Absolute Auto 6.1 x10*3/uL (2.0-8.3); Neutrophils Percent Auto 79.1 % (45-73); Platelet Count 317 X10*3/uL (160-400); Red Cell Distribution Width 26.9 % (11.0-16.0); White Blood Count 7.7 X10*3/uL (4.8-10.8)
[2022-01-24 07:29] LABS: Anion Gap 13 (12-20); Blood Urea Nitrogen 16 mg/dL (9-16); Calcium 8.4 mg/dL (8.4-10.2); Carbon Dioxide 24 mmol/L (22-29); Chloride 105 mmol/L (96-108); Creatinine Clr Calc Pharmacy 171.4; Estimated Glomerular Filt Rate > 60; Ferritin 7 ng/mL (20-250); Glucose Random 86 mg/dL (60-115); Potassium 3.7 mmol/L (3.3-5.1); Sodium 138 mmol/L (135-145)
[2022-01-24 08:07] LABS: Hemoglobin 5.8 g/dl (14.0-18.0); Mean Corpuscular Volume 63.9 fL (80.0-98.0)
[2022-01-24] MEDS: Lidocaine 4 % Patch ADH..PATCH 1 PATCH TRANSDERMA (09:45)
[2022-01-24] MEDS: Docusate Sodium 100 MG CAPSULE PO ×2 (09:45→22:22)
[2022-01-24] MEDS: hydroCHLOROthiazide 25 MG TABLET PO (09:45)
--- NOTE | 2022-01-24 11:11 | MHC.CM.PN ---
pt lives with has no services and is independent
--- NOTE | 2022-01-24 11:15 | P.CONCA_ITS ---
History of Present Illness History of Present Illness Date of Service: 01/24/22 Chief complaint: difficulty breathing dry mouth chest pain Narrative: This is a cardiology consultation regarding atrial flutter. Patient has a history of longstanding anemia apparently since almost tired. He used to take iron supplements but recently has not taken it. Current admission is for shortness of breath. In this context, he was apparently found to have a hemoglobin of 4.9. He was also found to be tachycardic and thought to be in atrial flutter. He is on Cardizem drip. Otherwise, he denies any cardiac symptoms like angina or shortness of breath in the past. No known cardiac issues like coronary disease, myocardial infarction or cardiomyopathy. Review of Systems Review of Systems: Yes all other systems are reviewed and are negative Constitutional: Constitutional: Reports as per HPI Eyes: Eyes: Reports as per HPI ENT: Reports as per HPI Cardiovascular: Cardiovascular: Reports as per HPI, Denies acrocyanosis, Denies cool extremities, Denies chest pain, Denies leg edema, Denies lightheadedness, Denies palpitations and Reports dyspnea Respiratory: Respiratory: Reports as per HPI, Reports no additional respiratory complaints and Reports dyspnea Gastrointestinal: Gastrointestinal: Reports as per HPI and Reports no additional gastrointestinal complaints Genitourinary: Genitourinary: Reports no additional male genitourinary complaints and Reports as per HPI Musculoskeletal: Musculoskeletal: Reports no additional musculoskeletal complaints and Reports as per HPI Integumentary/Breasts: Skin/Breast: Reports system reviewed and no additional complaints, except as docu Neurologic: Reports system reviewed and no additional complaints, except as documented and Reports as per HPI Psychiatric: Psychiatric: Reports no additional psychiatric complaints and Reports as per HPI Endocrine: Endocrine: Reports no additional endocrine complaints, Reports as per HPI and Denies palpitations Hematologic/Lymphatic: Hematologic/Lymphatic: Reports no additional hematologic/lymphatic complaints and Reports as per HPI Allergic/Immunologic: Allergic/Immunologic: Reports no additional allergic/immunologic complaints and Reports as per HPI PMF Past Medical History Medical History Encounter for physical examination Hypoparathyroidism after procedure Iron deficiency anemia Left leg pain Renal calculi Super-super obese Family History Family History Mother Hypertension Father Colon cancer, Onset Age: 82 Stroke Surgical History Surgical History History of parathyroid surgery Social History Social History Household Members: Spouse Housing: House Do you presently have visiting nurse or other home services: No Alcohol intake: former Patient Tobacco Use Status: Former Tobacco user Tobacco use type: Cigarette Smoked in Last 30 Days: No e-Cigarette/Vaping Use: Never Used Patient Interested in Nicotine Replacement: No Patient Given Instructions on How to Stop Smoking: No Second Hand Smoke Exposure: No Use of substances other than those prescribed or required for medical reasons: No Currently Displaying Signs/Symptoms of Drug Intoxication Withdrawal: No Any prior treatment program specific to substance use: No Have you been hit, kicked, punched, or otherwise hurt by someone within the past year? If so, by whom?: No Do you feel safe in your current relationship?: Yes Is there a partner from a previous relationship who is making you feel unsafe now?: No Are you made to feel afraid or neglected: No Advance Directives: No Advance Directives Information Provided: No Do you have thoughts of harming others: None Do you have a plan to hurt others: No Plan Recently lost weight without trying: No Eating poorly because of decreased appetite: No Nutrition Risks: No Nutritional Risk Poor oral hygiene: No service: No Current occupational status: unemployed Cognitive needs: Yes Hearing needs: No Vision needs: Yes Meds Allergies Allergy/AdvReac Type Severity Reaction Status Date / Time Penicillins [PENICILLINS] Allergy Intermediate ITCHING Verified 08/26/21 13:50 SEAFOOD Allergy Intermediate ITCHING/THROAT Uncoded 08/26/21 13:50 SWELLING shellfish Allergy Intermediate rash Uncoded 08/26/21 13:50 Active Medications: Current Medications Acetaminophen (Acetaminophen 325 Mg Tablet) 650 mg PO Q6H PRN PRN Reason: Pain, Mild (Pain Scale 1-3) Docusate Sodium (Docusate Sodium 100 Mg Capsule) 100 mg PO BID [facility] Last Admin: 01/24/22 09:45 Dose: 100 mg Hydrochlorothiazide (Hydrochlorothiazide 25 Mg Tablet) 25 mg PO DAILY [facility]; Protocol Last Admin: 01/24/22 09:45 Dose: 25 mg Diltiazem HCl 125 mg/ Sodium (Chloride) 125 mls @ 0 mls/hr IVCONT .Q0M [facility]; P rotocol Last Titration: 01/23/22 23:50 Dose: 5 mg/hr, 5 mls/hr Lactated Ringer's (Lr) 1,000 mls @ 100 mls/hr IVCONT .Q10H [facility] Last Admin: 01/24/22 10:46 Dose: Not Given Lidocaine (Lidocaine 4 % Patch Adh..Patch) 1 patch TRANSDERMA DAILY [facility] Last Admin: 01/24/22 09:45 Dose: 1 patch Metoprolol Tartrate (Metoprolol Tartrate 12.5 Mg Halftab) 12.5 mg PO BID [facility]; Protocol Multivitamins/Vitamin C (Multivitamin Tablet) 1 tab PO MoFr@0900 [facility] Omeprazole (Omeprazole 20 Mg Capsule.Dr) 20 mg PO DAILY@06 [facility] Ondansetron HCl (Ondansetron Hcl 4 Mg/2 Ml Vial) 4 mg IVPUSH Q8H PRN PRN Reason: Nausea and Vomiting Pharmacy Consult (Consult Rx Perform Med Rec) 1 each MISCELLANE ONCE PRN PRN Reason: Consult order Sodium Chloride (0.9 % Sodium Chloride Flush 3 Ml Syringe) 3 ml IVFLUSH QSHIFT [facility] Last Admin: 01/24/22 10:46 Dose: Not Given Home Medications Medication Instructions Recorded Confirmed Last Taken Type aspirin 325 mg tablet 325 mg PO BID PRN Pain (Scale 01/23/22 01/23/22 01/23/22 History Score 1-3) [id number] 0.4 mg-calcium 162 1 tab PO 2XW 01/23/22 01/23/22 Unknown History mg-iron 18 [id number] tablet omeprazole 20 mg capsule,delayed 20 mg PO DAILY@0630 01/23/22 01/23/22 01/22/22 History release sulindac 200 mg tablet 1 tab PO BID 01/23/22 01/23/22 01/22/22 History Physical Exam Vital Signs: Vital Signs: Last Vital Signs Temp 98.1 F 01/24/22 10:11 Pulse 98 01/24/22 10:11 Resp 18 01/24/22 10:11 BP 133/67 01/24/22 10:11 Pulse Ox 95 01/24/22 08:00 O2 Del Method 01/24/22 08:00 BMI result Body Mass Index 60.9 Const: General: comfortable and no acute distress Orientation/consciousness: patient oriented x3 HEENT: Other: Unremarkable Head: Yes normal to inspection Neck: Neck: Yes normal visual inspection Chest: Chest palpation & inspection: normal inspection of the chest Resp: Auscultation: clear to auscultation bilaterally Cardio: Palpation: normal PMI Heart sounds: S1 normal heart sound present, S2 normal heart sound present, no gallops, no murmurs and no rubs GI: Palpation (GI): Soft to palpation Back/Spine/Pelvis: Other: unremarkable Skin: General skin exam: no rashes or lesions noted Neuro: General: patient oriented x3 Extrem: General: Yes normal to inspection Psych: Mental Status: mental status grossly normal Objective Labs and Meds Result diagrams: 01/24/22 06:37 01/24/22 06:37 Lab results: Laboratory Results - last 24 hr 01/23/22 01/23/22 01/23/22 18:22 18:22 18:22 WBC 8.1 RBC 3.15 L Hgb 4.9 L* Hct 18.5 L* MCV 58.7 L MCH 15.6 L MCHC 26.5 L RDW 21.6 H Plt Count 354 MPV 9.0 L Immature Gran % (Auto) 0.6 H Neut % (Auto) 78.4 H Lymph % (Auto) 8.9 L [place] % (Auto) 10.5 Eos % (Auto) 1.0 Baso % (Auto) 0.6 Lymph # (Auto) 0.7 L [place] # (Auto) 0.9 Eos # (Auto) 0.1 Baso # (Auto) 0.1 Abs Immat Gran (auto) 0.05 H Absolute Neuts (auto) 6.3 Absolute Nucleated RBC 0.020 H Nucleated RBC % (auto) 0.2 D-Dimer High Sensitivty 320 Sodium 139 Potassium 4.1 Chloride 105 Carbon Dioxide 25 Anion Gap 13 BUN 16 Creatinine 0.80 Estim Creat Clear Calc 154.2 Estimated GFR > 60 Random Glucose 97 Calcium 8.9 Magnesium 1.6 Ferritin Total Bilirubin 0.4 AST 8 ALT 9 Alkaline Phosphatase 104 Troponin I High Sens B-Natriuretic Peptide Total Protein 6.6 Albumin 4.0 TSH 1.24 Stool Occult Blood COVID-19 (GABRIEL) COVID-19 Clin Com Blood Type Antibody Screen Crossmatch 01/23/22 01/23/22 01/23/22 18:22 18:22 19:22 WBC RBC Hgb Hct MCV MCH MCHC RDW Plt Count MPV Immature Gran % (Auto) Neut % (Auto) Lymph % (Auto) [place] % (Auto) Eos % (Auto) Baso % (Auto) Lymph # (Auto) [place] # (Auto) Eos # (Auto) Baso # (Auto) Abs Immat Gran (auto) Absolute Neuts (auto) Absolute Nucleated RBC Nucleated RBC % (auto) D-Dimer High Sensitivty Sodium Potassium Chloride Carbon Dioxide Anion Gap BUN Creatinine Estim Creat Clear Calc Estimated GFR Random Glucose Calcium Magnesium Ferritin Total Bilirubin AST ALT Alkaline Phosphatase Troponin I High Sens 12.7 B-Natriuretic Peptide 96 Total Protein Albumin TSH Stool Occult Blood COVID-19 (GABRIEL) COVID-19 Clin Com Blood Type A Positive Antibody Screen NEGATIVE Crossmatch See Detail 01/23/22 01/23/22 01/24/22 21:44 23:10 06:37 WBC 7.7 RBC 3.30 L Hgb 5.8 L* Hct 21.1 L MCV 63.9 L D MCH 17.6 L MCHC 27.5 L RDW 26.9 H Plt Count 317 MPV 9.4 Immature Gran % (Auto) 0.4 Neut % (Auto) 79.1 H Lymph % (Auto) 10.6 L [place] % (Auto) 8.6 Eos % (Auto) 0.5 Baso % (Auto) 0.8 Lymph # (Auto) 0.8 L [place] # (Auto) 0.7 Eos # (Auto) 0.0 Baso # (Auto) 0.1 Abs Immat Gran (auto) 0.03 Absolute Neuts (auto) 6.1 Absolute Nucleated RBC 0.020 H Nucleated RBC % (auto) 0.3 H D-Dimer High Sensitivty Sodium Potassium Chloride Carbon Dioxide Anion Gap BUN Creatinine Estim Creat Clear Calc Estimated GFR Random Glucose Calcium Magnesium Ferritin Total Bilirubin AST ALT Alkaline Phosphatase Troponin I High Sens B-Natriuretic Peptide Total Protein Albumin TSH Stool Occult Blood POSITIVE COVID-19 (GABRIEL) Negative COVID-19 Clin Com See Note Blood Type Antibody Screen Crossmatch 01/24/22 06:37 WBC RBC Hgb Hct MCV MCH MCHC RDW Plt Count MPV Immature Gran % (Auto) Neut % (Auto) Lymph % (Auto) [place] % (Auto) Eos % (Auto) Baso % (Auto) Lymph # (Auto) [place] # (Auto) Eos # (Auto) Baso # (Auto) Abs Immat Gran (auto) Absolute Neuts (auto) Absolute Nucleated RBC Nucleated RBC % (auto) D-Dimer High Sensitivty Sodium 138 Potassium 3.7 Chloride 105 Carbon Dioxide 24 Anion Gap 13 BUN 16 Creatinine 0.72 Estim Creat Clear Calc 171.4 Estimated GFR > 60 Random Glucose 86 Calcium 8.4 Magnesium Ferritin 7 L Total Bilirubin AST ALT Alkaline Phosphatase Troponin I High Sens B-Natriuretic Peptide Total Protein Albumin TSH Stool Occult Blood COVID-19 (GABRIEL) COVID-19 Clin Com Blood Type Antibody Screen Crossmatch ECG Interpretation: EKG shows atrial flutter with rapid rate. Imaging Radiologist's impression: Impressions Chest X-Ray 01/23/22 19:05 IMPRESSION: Mild cardiomegaly. No acute intrathoracic disease. Head CT 01/23/22 20:04 IMPRESSION: No acute intracranial pathology. Chest CTA 01/23/22 20:06 IMPRESSION: 1. No pulmonary embolism. 2. Large hiatal hernia. 3. Multiple nonobstructing left renal calculi. VTE: negative Assessment and Plan (1) Atrial flutter with rapid ventricular response: Status: Acute (2) Microcytic anemia: Status: Acute Plan Labs are markedly abnormal. In 2020, last hemoglobin was 13.9. However this admission hemoglobin is 4.9. Possibly slow GI blood loss but not clear. From cardiac labs, cardiac BNP is 96. High sensitivity troponins 12.7. TSH unremarkable. Stool occult blood positive. COVID screen is negative. Atrial flutter with rapid rate possibly from some combination of severe anemia as well as obesity. Currently on a Cardizem drip. We will add some beta- blockers as well as the blood pressure seems stable. Hold anticoagulation. Echocardiogram on Wednesday. GI workup for anemia but heart rate should be better controlled before any procedures. Will follow up with you. Discussed with Nani Holloway. Also discussed with patient's family at the bedside. Procedures Date of Service Date of Service: 01/24/22
--- NOTE | 2022-01-24 11:31 | P.PNIM_ITS ---
Subjective Subjective Date of Service: 01/24/22 Review of Systems Follow-up severe anemia, a flutter Feeling fine, denies shortness of breath, chest pain Sitting up on the side of bed eating breakfast Physical Exam Vital Signs: Vital Signs: Last Vital Signs Temp 98.1 F 01/24/22 10:11 Pulse 98 01/24/22 10:11 Resp 18 01/24/22 10:11 BP 133/67 01/24/22 10:11 Pulse Ox 95 01/24/22 08:00 O2 Del Method 01/24/22 08:00 BMI result Body Mass Index 60.9 Appearing in no acute distress lung sounds are clear to auscultation heart regular rate rhythm, clear S1, S2 positive bowel sounds, abdomen is soft, nontender neuro patient is alert x3, no focal deficits Objective Data Active Medications Acetaminophen (Acetaminophen 325 Mg Tablet) 650 mg PO Q6H PRN PRN Reason: Pain, Mild (Pain Scale 1-3) Docusate Sodium (Docusate Sodium 100 Mg Capsule) 100 mg PO BID [facility] Last Admin: 01/24/22 09:45 Dose: 100 mg Documented By: VOLODYMYR Hydrochlorothiazide (Hydrochlorothiazide 25 Mg Tablet) 25 mg PO DAILY [facility]; Protocol Last Admin: 01/24/22 09:45 Dose: 25 mg Documented By: VOLODYMYR Diltiazem HCl 125 mg/ Sodium (Chloride) 125 mls @ 0 mls/hr IVCONT .Q0M [facility]; Protocol Last Titration: 01/23/22 23:50 Dose: 5 mg/hr, 5 mls/hr Documented By: KEYONNA Lactated Ringer's (Lr) 1,000 mls @ 100 mls/hr IVCONT .Q10H [facility] Last Admin: 01/24/22 10:46 Dose: Not Given Documented By: VOLODYMYR Non-Admin Reason: IV Running Lidocaine (Lidocaine 4 % Patch Adh..Patch) 1 patch TRANSDERMA DAILY [facility] Last Admin: 01/24/22 09:45 Dose: 1 patch Documented By: VOLODYMYR Metoprolol Tartrate (Metoprolol Tartrate 12.5 Mg Halftab) 12.5 mg PO BID [facility]; Protocol Multivitamins/Vitamin C (Multivitamin Tablet) 1 tab PO MoFr@0900 [facility] Omeprazole (Omeprazole 20 Mg Capsule.) 20 mg PO DAILY@0630 [facility] Ondansetron HCl (Ondansetron Hcl 4 Mg/2 Ml Vial) 4 mg IVPUSH Q8H PRN PRN Reason: Nausea and Vomiting Pharmacy Consult (Consult Rx Perform Med Rec) 1 each MISCELLANE ONCE PRN PRN Reason: Consult order Sodium Chloride (0.9 % Sodium Chloride Flush 3 Ml Syringe) 3 ml IVFLUSH QSHIFT [facility] Last Admin: 01/24/22 10:46 Dose: Not Given Documented By: VOLODYMYR Non-Admin Reason: IV Running Labs CBC & Chem 7: 01/24/22 06:37 01/24/22 06:37 Labs: Laboratory Results - last 24 hr 01/23/22 01/23/22 01/23/22 18:22 18:22 18:22 MCV 58.7 L MCH 15.6 L MCHC 26.5 L RDW 21.6 H Plt Count 354 MPV 9.0 L Immature Gran % (Auto) 0.6 H Neut % (Auto) 78.4 H Lymph % (Auto) 8.9 L [place] % (Auto) 10.5 Eos % (Auto) 1.0 Baso % (Auto) 0.6 Lymph # (Auto) 0.7 L [place] # (Auto) 0.9 Eos # (Auto) 0.1 Baso # (Auto) 0.1 Abs Immat Gran (auto) 0.05 H Absolute Neuts (auto) 6.3 Absolute Nucleated RBC 0.020 H Nucleated RBC % (auto) 0.2 D-Dimer High Sensitivty 320 Anion Gap 13 Estim Creat Clear Calc 154.2 Estimated GFR > 60 Random Glucose 97 Calcium 8.9 Magnesium 1.6 Ferritin Total Bilirubin 0.4 AST 8 ALT 9 Alkaline Phosphatase 104 Troponin I High Sens B-Natriuretic Peptide Total Protein 6.6 Albumin 4.0 TSH 1.24 Stool Occult Blood COVID-19 ([facility]ABRIEL) COVID-19 Clin Com Blood Type Antibody Screen Crossmatch 01/23/22 01/23/22 01/23/22 18:22 18:22 19:22 MCV MCH MCHC RDW Plt Count MPV Immature Gran % (Auto) Neut % (Auto) Lymph % (Auto) [place] % (Auto) Eos % (Auto) Baso % (Auto) Lymph # (Auto) [place] # (Auto) Eos # (Auto) Baso # (Auto) Abs Immat Gran (auto) Absolute Neuts (auto) Absolute Nucleated RBC Nucleated RBC % (auto) D-Dimer High Sensitivty Anion Gap Estim Creat Clear Calc Estimated GFR Random Glucose Calcium Magnesium Ferritin Total Bilirubin AST ALT Alkaline Phosphatase Troponin I High Sens 12.7 B-Natriuretic Peptide 96 Total Protein Albumin TSH Stool Occult Blood COVID-19 (GABRIEL) COVID-SubtleData Com Blood Type A Positive Antibody Screen NEGATIVE Crossmatch See Detail 01/23/22 01/23/22 01/24/22 21:44 23:10 06:37 MCV 63.9 L D MCH 17.6 L MCHC 27.5 L RDW 26.9 H Plt Count 317 MPV 9.4 Immature Gran % (Auto) 0.4 Neut % (Auto) 79.1 H Lymph % (Auto) 10.6 L [place] % (Auto) 8.6 Eos % (Auto) 0.5 Baso % (Auto) 0.8 Lymph # (Auto) 0.8 L [place] # (Auto) 0.7 Eos # (Auto) 0.0 Baso # (Auto) 0.1 Abs Immat Gran (auto) 0.03 Absolute Neuts (auto) 6.1 Absolute Nucleated RBC 0.020 H Nucleated RBC % (auto) 0.3 H D-Dimer High Sensitivty Anion Gap Estim Creat Clear Calc Estimated GFR Random Glucose Calcium Magnesium Ferritin Total Bilirubin AST ALT Alkaline Phosphatase Troponin I High Sens B-Natriuretic Peptide Total Protein Albumin TSH Stool Occult Blood POSITIVE COVID-19 (GABRIEL) Negative [employer] See Note Blood Type Antibody Screen Crossmatch 01/24/22 06:37 MCV MCH MCHC RDW Plt Count MPV Immature Gran % (Auto) Neut % (Auto) Lymph % (Auto) [place] % (Auto) Eos % (Auto) Baso % (Auto) Lymph # (Auto) [place] # (Auto) Eos # (Auto) Baso # (Auto) Abs Immat Gran (auto) Absolute Neuts (auto) Absolute Nucleated RBC Nucleated RBC % (auto) D-Dimer High Sensitivty Anion Gap 13 Estim Creat Clear Calc 171.4 Estimated GFR > 60 Random Glucose 86 Calcium 8.4 Magnesium Ferritin 7 L Total Bilirubin AST ALT Alkaline Phosphatase Troponin I High Sens B-Natriuretic Peptide Total Protein Albumin TSH Stool Occult Blood COVID-19 ([facility]RIEL) COVID-19 Clin Com Blood Type Antibody Screen Crossmatch Assessment and Plan (1) Atrial flutter with rapid ventricular response: Status: Acute Plan 56-year-old man admitted with severe anemia in new onset atrial flutter New onset atrial flutter Likely secondary to severe anemia Placed on Cardizem drip Start metoprolol 50 mg TID Redd Vasc score of 1 Cardiology following at this time unable to do any cardioversion due to the fact that the patient needs anticoagulation and he cannot have it because of his severe anemia Echocardiogram ordered Acute microcytic anemia Positive stool occult Received total 2 units PRBC, recheck H&H this afternoon GI consult for likely colonoscopy Iron/ ferritin Consider hematology consultation Hypertension Stable blood pressure Continue medications Morbid obesity. BMI 60.9 Discussed importance of weight management as this may be contributing to worsening of other comorbidities DVT prophylaxis with pneumatic compression boots due to severe anemia Attending Dr. English Full code Continued hospitalization for treatment of new onset atrial flutter and anemia requiring blood transfusions and frequent monitoring Quality Stroke Does the patient have a stroke diagnosis?: No VTE Prior VTE?: No VTE Risk Level:: Medical - moderate - high VTE Device Contraindication: N/A - Device Ordered VTE Drug Contraindication: Treatment Not Indicated
[2022-01-24] MEDS: dilTIAZem HCL 125 MG in 0.9 % Sodium Chloride 100 ML IVCONT (11:42)
--- NOTE | 2022-01-24 12:04 | PM.EVENT ---
Event Note Date of Service: 01/24/22 Event Note: GI consult dictated EGD/colonscopy planned for 01/26 for further evaluation of anemia and heme positive stools. Patient is aware of risks and benefits and agrees to proceed.
[2022-01-24 12:05] LABS: Iron 177 mcg/dL (45-160); Percent Iron Saturation 40 % (15-50); Total Iron Binding Capacity 446 mcg/dL (228-428); Unsaturated Iron Binding 269 ug/dL
--- NOTE | 2022-01-24 13:34 | CONS_ITS ---
DATE OF SERVICE: 01/24/2022 REFERRING PHYSICIAN: Marbella Farooq REASON FOR CONSULTATION: Anemia and Hemoccult-positive stools. HISTORY OF PRESENT ILLNESS: The patient is a pleasant 56-year-old man who was admitted to the hospital after presenting to the emergency room, complaining of heart palpitations and shortness of breath. He has a history of iron-deficiency anemia for which he reportedly underwent upper endoscopy and colonoscopy 4 years ago, that he states were negative. He has been maintained on iron until September of this year when he stopped this after his iron studies and CBC were normal. About a month ago, he started developing shortness of breath on exertion, which progressed and the day prior to admission, developed heart palpitations and dizziness. He presented to the emergency department where he was evaluated and noted to be tachycardic and lab work was done and showing a hematocrit of 18.5. He received packed red blood cells and transfusion and is currently feeling better. He was started on a Cardizem drip for new-onset atrial fibrillation. He does have occasional hematochezia, which he attributes to hemorrhoids. He has not seen any melena and denies any upper GI or lower GI symptoms other than constipation, which he says was related to the iron. PAST MEDICAL HISTORY: 1. Elevated body mass index. 2. Hypertension. 3. Iron-deficiency anemia. 4. Nephrolithiasis. CURRENT MEDICATIONS: Current medication list is reviewed in the chart. ALLERGIES: PENICILLIN AND SEAFOOD. FAMILY HISTORY: This is positive for colon cancer in his father. SOCIAL HISTORY: There is no current tobacco, alcohol, or substance abuse. 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 REVIEW OF SYSTEMS: SKIN: No pruritus. HEENT: Negative. CARDIOPULMONARY: No shortness of breath currently. GASTROINTESTINAL: As above. GENITOURINARY: Negative. NEUROPSYCHIATRIC: Negative. PHYSICAL EXAMINATION: GENERAL: Shows a pleasant male, lying in bed VITAL SIGNS: Reviewed in the electronic medical record and are stable. SKIN: Anicteric. HEENT: Shows no scleral icterus. NECK: Without lymphadenopathy or thyromegaly. LUNGS: Clear. HEART: Shows irregular S1, S2. No murmur. ABDOMEN: Soft without focal masses or tenderness. Bowel sounds are present. No organomegaly is noted. EXTREMITIES: Without edema. LABORATORY DATA: Reviewed. RADIOLOGIC STUDIES: Reviewed. IMPRESSION: Iron-deficiency anemia with Hemoccult-positive stools. I discussed upper endoscopy and colonoscopy with him for further evaluation as it has been 4 years since he was last evaluated and he will likely need anticoagulation for his atrial fibrillation. We discussed risks and benefits of both procedures today. He understands and agrees to proceed. This will be arranged on January 26. Thanks for asking me to see him. I will follow him in the hospital with you. MD SHAHBAZ Cabezas/LORI / [phone]
[2022-01-24 13:59] LABS: Hematocrit 23.9 % (42.0-52.0)
[2022-01-24 14:05] LABS: Hemoglobin 6.8 g/dl (14.0-18.0)
[2022-01-24] MEDS: Metoprolol Tartrate 50 MG TABLET PO ×2 (15:54→22:21)
[2022-01-25] VITALS (7 sets, daily range): BP systolic 119–138; BP diastolic 72–81; PULSE 62–83; RESP 18–20; TEMP 35.8–37.3; O2SAT 93–99
[2022-01-25] MEDS: 0.9 % Sodium Chloride Flush 3 ML SYRINGE IVFLUSH ×4 (01:38→21:37)
[2022-01-25 01:48] LABS: Hematocrit 27.5 % (42.0-52.0); Hemoglobin 8.5 g/dl (14.0-18.0)
[2022-01-25] MEDS: Omeprazole 20 MG CAPSULE.DR PO (05:39)
[2022-01-25 06:47] LABS: Hematocrit 27.2 % (42.0-52.0); Hemoglobin 8.1 g/dl (14.0-18.0); Mean Corpuscular HGB Conc 29.8 g/dl (31.0-36.0); Mean Corpuscular Hemoglobin 20.6 pg (27.0-33.0); Mean Platelet Volume 9.7 fL (9.4-12.4); NRBC Pct Auto 0.4 /100WBC (0.0-0.2); Platelet Count 289 X10*3/uL (160-400); Red Blood Count 3.94 X10*6/uL (4.60-5.80); Red Cell Distribution Width 29.6 % (11.0-16.0); White Blood Count 9.7 X10*3/uL (4.8-10.8)
[2022-01-25 07:19] LABS: Anion Gap 13 (12-20); Blood Urea Nitrogen 16 mg/dL (9-16); Calcium 8.3 mg/dL (8.4-10.2); Carbon Dioxide 24 mmol/L (22-29); Chloride 104 mmol/L (96-108); Creatinine Clr Calc Pharmacy 171.4; Estimated Glomerular Filt Rate > 60; Glucose Random 85 mg/dL (60-115); Sodium 137 mmol/L (135-145)
--- NOTE | 2022-01-25 07:28 | PC.NURSE ---
At 06:57 pt had a 4.2 second pause on the monitor. Vital signs all within normal limits. Patient was asleep and snoring at the time of the pause, and was asymptomatic upon waking up. Health care provider was notified. Will continue to monitor
[2022-01-25 07:50] LABS: Vitamin B12 350 pg/mL (200-900)
[2022-01-25] MEDS: Docusate Sodium 100 MG CAPSULE PO (09:49)
[2022-01-25] MEDS: hydroCHLOROthiazide 25 MG TABLET PO (09:49)
[2022-01-25] MEDS: Metoprolol Tartrate 50 MG TABLET PO ×3 (09:49→21:37)
[2022-01-25] MEDS: Lidocaine 4 % Patch ADH..PATCH 1 PATCH TRANSDERMA (09:50)
--- NOTE | 2022-01-25 10:18 | PM.GIPN ---
Subjective Subjective Date of Service: 01/25/22 Interval History: feels better no bleeding Critical Care Time (minutes): 0 Physical Exam Vital Signs: Vital Signs: Last Vital Signs Temp 96.4 F L 01/25/22 07:55 Pulse 69 01/25/22 07:55 Resp 19 01/25/22 07:55 BP 138/79 01/25/22 07:55 Pulse Ox 97 01/25/22 07:55 O2 Del Method 01/25/22 07:55 BMI result Body Mass Index 60.9 GI: Other: abdomen is soft and nontender Objective Data Labs CBC & Chem 7: 01/25/22 06:14 01/25/22 06:14 Labs: Laboratory Results - last 24 hr 01/23/22 01/24/22 01/24/22 19:22 06:37 13:42 WBC RBC Hgb 6.8 L* Hct 23.9 L MCV MCH MCHC RDW Plt Count MPV Absolute Nucleated RBC Nucleated RBC % (auto) Sodium Potassium Chloride Carbon Dioxide Anion Gap BUN Creatinine Estim Creat Clear Calc Estimated GFR Random Glucose Calcium Iron 177 H TIBC 446 H % Saturation 40 Unsat Iron Binding 269 Vitamin B12 Blood Type A Positive Antibody Screen NEGATIVE Crossmatch See Detail 01/25/22 01/25/22 01/25/22 01:43 06:14 06:14 WBC 9.7 RBC 3.94 L Hgb 8.5 L D 8.1 L Hct 27.5 L 27.2 L MCV 69.0 L D MCH 20.6 L MCHC 29.8 L RDW 29.6 H Plt Count 289 MPV 9.7 Absolute Nucleated RBC 0.040 H Nucleated RBC % (auto) 0.4 H Sodium 137 Potassium 4.0 Chloride 104 Carbon Dioxide 24 Anion Gap 13 BUN 16 Creatinine 0.72 Estim Creat Clear Calc 171.4 Estimated GFR > 60 Random Glucose 85 Calcium 8.3 L Iron TIBC % Saturation Unsat Iron Binding Vitamin B12 Blood Type Antibody Screen Crossmatch 01/25/22 06:14 WBC RBC Hgb Hct MCV MCH MCHC RDW Plt Count MPV Absolute Nucleated RBC Nucleated RBC % (auto) Sodium Potassium Chloride Carbon Dioxide Anion Gap BUN Creatinine Estim Creat Clear Calc Estimated GFR Random Glucose Calcium Iron TIBC % Saturation Unsat Iron Binding Vitamin B12 350 Blood Type Antibody Screen Crossmatch Procedures Date of Service Date of Service: 01/25/22 Progress Note: A&P Assessment and plan (1) Positive occult stool blood test: Status: Acute Assessment and Plan: egd and colonoscopy 01/26 bowel prep today Time Spent With Patient Time: Total time spent is greater than 50% in coordination of care (as documented) at patient's floor/unit and/or counseling patient: Quality Stroke Does the patient have a stroke diagnosis?: No VTE Prior VTE?: No VTE Risk Level:: Medical - moderate - high VTE Device Contraindication: N/A - Device Ordered VTE Drug Contraindication: Treatment Not Indicated
--- NOTE | 2022-01-25 10:37 | PM.PNCARD ---
Subjective Subjective Date of Service: 01/25/22 Interval history: He states that he is feeling better. No acute cardiac symptoms at this time. Review of Systems Review of Systems Yes all other systems are reviewed and are negative Constitutional: Reports as per HPI Eyes: Reports as per HPI Reports as per HPI Cardiovascular: Reports as per HPI, Denies acrocyanosis, Denies cool extremities, Denies chest pain, Denies leg edema, Denies lightheadedness, Denies palpitations and Denies dyspnea Respiratory: Reports as per HPI, Reports no additional respiratory complaints and Denies dyspnea Gastrointestinal: Reports as per HPI and Reports no additional gastrointestinal complaints Genitourinary: Reports no additional male genitourinary complaints and Reports as per HPI Musculoskeletal: Reports no additional musculoskeletal complaints and Reports as per HPI Skin/Breast: Reports system reviewed and no additional complaints, except as docu Reports system reviewed and no additional complaints, except as documented and Reports as per HPI Psychiatric: Reports no additional psychiatric complaints and Reports as per HPI Endocrine: Reports no additional endocrine complaints, Reports as per HPI and Denies palpitations Hematologic/Lymphatic: Reports no additional hematologic/lymphatic complaints and Reports as per HPI Allergic/Immunologic: Reports no additional allergic/immunologic complaints and Reports as per HPI Physical Exam Vital Signs: Last Vital Signs Temp 96.4 F L 01/25/22 07:55 Pulse 69 01/25/22 07:55 Resp 19 01/25/22 07:55 BP 138/79 01/25/22 07:55 Pulse Ox 97 01/25/22 07:55 O2 Del Method 01/25/22 07:55 BMI result Body Mass Index 60.9 Const General: comfortable and no acute distress Orientation/consciousness: patient oriented x3 HEENT Other: Unremarkable Head: Yes normal to inspection Neck Neck: Yes normal visual inspection Chest Chest palpation & inspection: normal inspection of the chest Resp Auscultation: clear to auscultation bilaterally Cardio Palpation: normal PMI Heart sounds: S1 normal heart sound present, S2 normal heart sound present, no gallops, no murmurs and no rubs GI Palpation (GI): Soft to palpation Back/Spine/Pelvis Other: unremarkable Skin General skin exam: no rashes or lesions noted Neuro General: patient oriented x3 Extrem General: Yes normal to inspection Psych Mental Status: mental status grossly normal Objective Labs and Meds Result diagrams: 01/25/22 06:14 01/25/22 06:14 Lab results: Laboratory Results - last 24 hr 01/23/22 01/24/22 01/24/22 19:22 06:37 13:42 WBC RBC Hgb 6.8 L* Hct 23.9 L MCV MCH MCHC RDW Plt Count MPV Absolute Nucleated RBC Nucleated RBC % (auto) Sodium Potassium Chloride Carbon Dioxide Anion Gap BUN Creatinine Estim Creat Clear Calc Estimated GFR Random Glucose Calcium Iron 177 H TIBC 446 H % Saturation 40 Unsat Iron Binding 269 Vitamin B12 Blood Type A Positive Antibody Screen NEGATIVE Crossmatch See Detail 01/25/22 01/25/22 01/25/22 01:43 06:14 06:14 WBC 9.7 RBC 3.94 L Hgb 8.5 L D 8.1 L Hct 27.5 L 27.2 L MCV 69.0 L D MCH 20.6 L MCHC 29.8 L RDW 29.6 H Plt Count 289 MPV 9.7 Absolute Nucleated RBC 0.040 H Nucleated RBC % (auto) 0.4 H Sodium 137 Potassium 4.0 Chloride 104 Carbon Dioxide 24 Anion Gap 13 BUN 16 Creatinine 0.72 Estim Creat Clear Calc 171.4 Estimated GFR > 60 Random Glucose 85 Calcium 8.3 L Iron TIBC % Saturation Unsat Iron Binding Vitamin B12 Blood Type Antibody Screen Crossmatch 01/25/22 06:14 WBC RBC Hgb Hct MCV MCH MCHC RDW Plt Count MPV Absolute Nucleated RBC Nucleated RBC % (auto) Sodium Potassium Chloride Carbon Dioxide Anion Gap BUN Creatinine Estim Creat Clear Calc Estimated GFR Random Glucose Calcium Iron TIBC % Saturation Unsat Iron Binding Vitamin B12 350 Blood Type Antibody Screen Crossmatch Progress Note: A&P Assessment and plan (1) Atrial flutter with rapid ventricular response: Status: Acute (2) Microcytic anemia: Status: Acute (3) Preoperative cardiovascular examination: Status: Acute Plan Labs are markedly abnormal. In 2020, last hemoglobin was 13.9. However this admission hemoglobin is 4.9. Possibly slow GI blood loss but not clear. From cardiac labs, cardiac BNP is 96. High sensitivity troponins 12.7. TSH unremarkable. Stool occult blood positive. COVID screen is negative. With regard to atrial flutter, rate seems controlled. He is currently on oral beta-blockers. Off the diltiazem drip. With regard to planned EGD/colonoscopy, intermediate cardiac risk. If feasible, we will complete echocardiogram before procedure. Discussed with Nani Holloway. Time Spent With Patient Time: Total time spent is greater than 50% in coordination of care (as documented) at patient's floor/unit and/or counseling patient: 35min. Progress Note: Quality Stroke Does the patient have a stroke diagnosis?: No Procedures Date of Service Date of Service: 01/25/22
[2022-01-25] MEDS: PEG 3350/Na Sulf,Bicarb,Cl/KCL 4,000 ML SOLN.RECON 4000 ML PO (12:46)
--- NOTE | 2022-01-25 14:43 | P.PNIM_ITS ---
Subjective Subjective Date of Service: 01/25/22 Review of Systems Follow-up severe anemia, a flutter Feeling fine, denies shortness of breath, chest pain Sitting up on the side of bed eating breakfast Physical Exam Vital Signs: Vital Signs: Last Vital Signs Temp 96.4 F L 01/25/22 11:53 Pulse 76 01/25/22 11:53 Resp 19 01/25/22 11:53 BP 128/81 01/25/22 11:53 Pulse Ox 99 01/25/22 11:53 O2 Del Method 01/25/22 11:53 BMI result Body Mass Index 60.9 Appearing in no acute distress lung sounds are clear to auscultation heart regular rate rhythm, clear S1, S2 positive bowel sounds, abdomen is soft, nontender neuro patient is alert x3, no focal deficits Objective Data Active Medications Acetaminophen (Acetaminophen 325 Mg Tablet) 650 mg PO Q6H PRN PRN Reason: Pain, Mild (Pain Scale 1-3) Docusate Sodium (Docusate Sodium 100 Mg Capsule) 100 mg PO BID [facility] Last Admin: 01/25/22 09:49 Dose: 100 mg Documented By: VOLODYMYR Hydrochlorothiazide (Hydrochlorothiazide 25 Mg Tablet) 25 mg PO DAILY [facility]; Protocol Last Admin: 01/25/22 09:49 Dose: 25 mg Documented By: VOLODYMYR Diltiazem HCl 125 mg/ Sodium (Chloride) 125 mls @ 0 mls/hr IVCONT .Q0M [facility]; Protocol Last Titration: 01/24/22 18:26 Dose: 0 mg/hr, 0 mls/hr Documented By: VOLODYMYR Lactated Ringer's (Lr) 1,000 mls @ 100 mls/hr IVCONT .Q10H [facility] Last Admin: 01/25/22 05:40 Dose: Not Given Documented By: SHAE Non-Admin Reason: Patient Asleep Lidocaine (Lidocaine 4 % Patch Adh..Patch) 1 patch TRANSDERMA DAILY [facility] Last Admin: 01/25/22 09:50 Dose: 1 patch Documented By: VOLODYMYR Metoprolol Tartrate (Metoprolol Tartrate 50 Mg Tablet) 50 mg PO TID [facility]; Protocol Last Admin: 01/25/22 09:49 Dose: 50 mg Documented By: VOLODYMYR Multivitamins/Vitamin C (Multivitamin Tablet) 1 tab PO MoFr@0900 [facility] Omeprazole (Omeprazole 20 Mg Capsule.) 20 mg PO DAILY@0630 [facility] Last Admin: 01/25/22 05:39 Dose: 20 mg Documented By: SHAE Ondansetron HCl (Ondansetron Hcl 4 Mg/2 Ml Vial) 4 mg IVPUSH Q8H PRN PRN Reason: Nausea and Vomiting Pharmacy Consult (Consult Rx Perform Med Rec) 1 each MISCELLANE ONCE PRN PRN Reason: Consult order Sodium Chloride (0.9 % Sodium Chloride Flush 3 Ml Syringe) 3 ml IVFLUSH QSHIFT [facility] Last Admin: 01/25/22 09:50 Dose: 3 ml Documented By: VOLODYMYR Labs CBC & Chem 7: 01/25/22 06:14 01/25/22 06:14 Labs: Laboratory Results - last 24 hr 01/23/22 01/25/22 01/25/22 19:22 06:14 06:14 MCV 69.0 L D MCH 20.6 L MCHC 29.8 L RDW 29.6 H Plt Count 289 MPV 9.7 Absolute Nucleated RBC 0.040 H Nucleated RBC % (auto) 0.4 H Anion Gap 13 Estim Creat Clear Calc 171.4 Estimated GFR > 60 Random Glucose 85 Calcium 8.3 L Vitamin B12 Blood Type A Positive Antibody Screen NEGATIVE Crossmatch See Detail 01/25/22 06:14 MCV MCH MCHC RDW Plt Count MPV Absolute Nucleated RBC Nucleated RBC % (auto) Anion Gap Estim Creat Clear Calc Estimated GFR Random Glucose Calcium Vitamin B12 350 Blood Type Antibody Screen Crossmatch Assessment and Plan (1) Atrial flutter with rapid ventricular response: Status: Acute Plan 56-year-old man admitted with severe anemia in new onset atrial flutter New onset atrial flutter Likely secondary to severe anemia status post Placed on Cardizem drip metoprolol 50 mg TID Cardiology following at this time unable to do any cardioversion due to the fact that the patient needs anticoagulation and he cannot have it because of his severe anemia Echocardiogram ordered Episode of atrial fibrillation with rapid ventricular response last evening, resolved Acute microcytic anemia Positive stool occult Received total 4 units PRBC,HH stable Iron 177/ ferritin 7/B12 350 GoLYTELY for EGD/colonoscopy tomorrow NPO after midnight Hypertension Stable blood pressure Continue medications Morbid obesity. BMI 60.9 Discussed importance of weight management as this may be contributing to wo rsening of other comorbidities DVT prophylaxis with pneumatic compression boots due to severe anemia Attending Dr. English Full code Continued hospitalization for treatment of new onset atrial flutter and anemia requiring blood transfusions and frequent monitoring Quality Stroke Does the patient have a stroke diagnosis?: No VTE Prior VTE?: No VTE Risk Level:: Medical - moderate - high VTE Device Contraindication: N/A - Device Ordered VTE Drug Contraindication: Treatment Not Indicated
[2022-01-26] VITALS (12 sets, daily range): BP systolic 101–142; BP diastolic 44–87; PULSE 54–107; RESP 12–28; TEMP 36.3–37.1; O2SAT 94–99
--- NOTE | 2022-01-26 07:00 | CA_ITS ---
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 There is mildly increased left ventricular wall thickness. The visually estimated ejection fraction is between 60-65%. - Mildly increased right ventricular cavity size. There is mildly decreased right ventricular systolic function. - The left atrium is mildly dilated. - Mildly elevated right atrial pressure. - There is mild dilatation of the ascending aorta measuring 3.70 cm. Findings Procedure Information Contrast agent, definity, is being given per protocol without apparent complications. Left Ventricle Normal left ventricular size and systolic function. There is mildly increased left ventricular wall thickness. The visually estimated ejection fraction is between 60-65%. There is no evidence of regional wall motion abnormalities. Diastolic function is indeterminate on the basis of available data. Right Ventricle Mildly increased right ventricular cavity size. There is mildly decreased right ventricular systolic function. Atria The left atrium is mildly dilated. Aortic Valve The aortic valve structure and function is likely normal. There is no aortic valve stenosis. There is no aortic valve regurgitation. Mitral Valve The mitral valve appears normal. There is no mitral valve regurgitation. There is no mitral valve stenosis. Pulmonic Valve The pulmonic valve is likely normal. Tricuspid Valve Normal tricuspid valve structure and function. There is no tricuspid valve regurgitation. Mildly elevated right atrial pressure. There is no evidence of pulmonary hypertension. Great Vessels There is mild dilatation of the ascending aorta measuring 3.70 cm. The visualized portions of the pulmonary artery and branches are normal. Venous The inferior vena cava is dilated and collapses greater than 50% with inspiration. Pericardium/Pleural There is no evidence of pericardial effusion. Measurements 2D Linear Measurements IVSd: 1.24 0.6-0.9/0.6-1.0 cm LVIDd: 5.49 3.9-5.3/4.2-5.9 cm LVIDd Index: 2.14 2.4-3.2/2.2-3.1 cm/m2 LVIDs: 3.61 2.0-3.6 cm LVPWd: 1.22 0.7-1.1 cm Ao Root: 4.00 2.1-3.5 cm LA Diam: 3.80 2.7-3.8/3.0-4.0 cm LAIDs Index: 1.48 1.5-2.3 cm/m2 LV Mass: 350.47 67-162/88-224 g LV Mass Index: 136.90 43-95/49-115 g/m2 LVOT Diam: 2.50 3.0+(-)1.3 cm 2D Systolic Function EF 4C: 59.70 >55% EF 2C: 44.50 >55% EF BiP: 54.10 >55% Mitral Valve MV Pk E: 1.14 MV Decel Time: 130.00 E'Lateral: 12.00 E'Medial: 11.00 E/E' Med: 10.40 E/E' Lat: 9.50 PHT: 38.00 MVA PHT: 5.79 Decel Trimble: 8.74 Aortic Valve AoV Pk Jose: 1.30 AoV Mn Jose: 0.91 AoV VTI: 0.26 AoV Pk Grad: 7.00 Aov Mn Grad: 4.00 ELIAS Cont.VTI: 3.24 LVOT LVOT Pk Jose: 0.91 LVOT Mn Jose: 0.60 LVOT VTI: 0.17 LVOT Pk Grad: 3.00 LVOT Mn Grad: 2.00 LVOT Diam: 2.50 LVOT Area: 4.91 Diastolic Function MV Pk E: 1.14 E'Medial: 11.00 E/E' Med: 10.40 E' Laterial: 12.00 E/E' Lat: 9.50 Right Ventricle TAPSE (mm): 26.00 TVS' Jose: 12.00 Tricuspid Valve TR Pk Jose: 1.98 TR Pk Grad: 16.00 RA Press: 3.00 RVSP: 19.00 Great Vessels Aorta Ao Root-2D: 4.00 2.0-3.7 cm Ao Asc: 3.70 2.1-3.4 cm Pulmonary Valve PV Pk Jose: 0.84 Peak PV Grad: 3.00 Updated in Other Vendor System with Status of Final Grupo Hernandez MD electronically signed on 01/26/2022 9:49:37 PM with status of Final
[2022-01-26 07:26] LABS: Hematocrit 27.9 % (42.0-52.0); Hemoglobin 8.1 g/dl (14.0-18.0); Mean Corpuscular Hemoglobin 19.9 pg (27.0-33.0); Mean Corpuscular Volume 68.4 fL (80.0-98.0); Mean Platelet Volume 9.5 fL (9.4-12.4); Platelet Count 267 X10*3/uL (160-400); Red Blood Count 4.08 X10*6/uL (4.60-5.80); Red Cell Distribution Width 30.5 % (11.0-16.0); White Blood Count 10.1 X10*3/uL (4.8-10.8)
[2022-01-26] MEDS: 0.9 % Sodium Chloride Flush 3 ML SYRINGE IVFLUSH ×3 (08:05→21:33)
[2022-01-26] MEDS: Multivitamin TABLET 1 TAB PO (08:06)
[2022-01-26] MEDS: hydroCHLOROthiazide 25 MG TABLET PO (08:06)
[2022-01-26] MEDS: Metoprolol Tartrate 50 MG TABLET PO ×3 (08:06→21:30)
[2022-01-26] MEDS: Lidocaine 4 % Patch ADH..PATCH 1 PATCH TRANSDERMA (08:07)
--- NOTE | 2022-01-26 08:18 | ECG_ITS ---
Test Reason : tachycardia Blood Pressure : / mmHG Vent. Rate : 104 BPM Atrial Rate : 306 BPM P-R Int : 000 ms QRS Dur : 112 ms QT Int : 266 ms P-R-T Axes : -87 025 264 degrees QTc Int : 349 ms Atrial flutter with variable A-V block Nonspecific ST and T wave abnormality RSR' or QR pattern in V1 suggests right ventricular conduction delay Abnormal ECG When compared with ECG of 23-JAN-2022 18:41, No significant changes seen Referred By: Nani Holloway Electronically Signed By:MAURICE DUMAS MD
--- NOTE | 2022-01-26 10:11 | HO.PM.IMPN ---
Subjective Subjective Date of Service: 01/26/22 Review of Systems Follow-up severe anemia, a flutter Feeling fine, denies shortness of breath, chest pain Sitting up on the side of bed eating breakfast Physical Exam Vital Signs: Vital Signs: Last Vital Signs Temp 97.8 F 01/26/22 07:41 Pulse 100 01/26/22 07:41 Resp 12 01/26/22 07:41 BP 116/55 L 01/26/22 07:41 Pulse Ox 94 01/26/22 07:41 O2 Del Method 01/26/22 07:41 BMI result Body Mass Index 60.9 Appearing in no acute distress lung sounds are clear to auscultation heart regular rate rhythm, clear S1, S2 positive bowel sounds, abdomen is soft, nontender neuro patient is alert x3, no focal deficits Objective Data Active Medications Acetaminophen (Acetaminophen 325 Mg Tablet) 650 mg PO Q6H PRN PRN Reason: Pain, Mild (Pain Scale 1-3) Docusate Sodium (Docusate Sodium 100 Mg Capsule) 100 mg PO BID [facility] Last Admin: 01/26/22 08:06 Dose: Not Given Documented By: CHRIS Non-Admin Reason: Patient Refused Hydrochlorothiazide (Hydrochlorothiazide 25 Mg Tablet) 25 mg PO DAILY [facility]; Protocol Last Admin: 01/26/22 08:06 Dose: 25 mg Documented By: CHRIS Diltiazem HCl 125 mg/ Sodium (Chloride) 125 mls @ 0 mls/hr IVCONT .Q0M [facility]; Protocol Last Titration: 01/24/22 18:26 Dose: 0 mg/hr, 0 mls/hr Documented By: VOLODYMYR Lidocaine (Lidocaine 4 % Patch Adh..Patch) 1 patch TRANSDERMA DAILY [facility] Last Admin: 01/26/22 08:07 Dose: 1 patch Documented By: CHRIS Metoprolol Tartrate (Metoprolol Tartrate 50 Mg Tablet) 50 mg PO TID [facility]; Protocol Last Admin: 01/26/22 08:06 Dose: 50 mg Documented By: CHRIS Multivitamins/Vitamin C (Multivitamin Tablet) 1 tab PO MoFr@0900 [facility] Last Admin: 01/26/22 08:06 Dose: 1 tab Documented By: CHRIS Omeprazole (Omeprazole 20 Mg Capsule.) 20 mg PO DAILY@0630 [facility] Last Admin: 01/26/22 05:41 Dose: Not Given Documented By: SHAE Non-Admin Reason: NPO Ondansetron HCl (Ondansetron Hcl 4 Mg/2 Ml Vial) 4 mg IVPUSH Q8H PRN PRN Reason: Nausea and Vomiting Pharmacy Consult (Consult Rx Perform Med Rec) 1 each MISCELLANE ONCE PRN PRN Reason: Consult order Sodium Chloride (0.9 % Sodium Chloride Flush 3 Ml Syringe) 3 ml IVFLUSH QSHIFT [facility] Last Admin: 01/26/22 08:05 Dose: 3 ml Documented By: CHRIS Labs CBC & Chem 7: 01/26/22 07:06 01/25/22 06:14 Labs: Laboratory Results - last 24 hr 01/24/22 01/26/22 06:37 07:06 MCV 68.4 L MCH 19.9 L MCHC 29.0 L RDW 30.5 H Plt Count 267 MPV 9.5 Absolute Nucleated RBC 0.000 Nucleated RBC % (auto) 0.0 Smear Path Review SEE NOTE Assessment and Plan (1) Atrial flutter with rapid ventricular response: Status: Acute Plan 56-year-old man admitted with severe anemia in new onset atrial flutter New onset atrial flutter Likely secondary to severe anemia status post Cardizem drip metoprolol 50 mg TID Cardiology following at this time unable to do any cardioversion due to the fact that the patient needs anticoagulation and he cannot have it because of his severe anemia Echocardiogram ordered Episode of atrial fibrillation with rapid ventricular response last evening, resolved Acute microcytic anemia Positive stool occult Received total 4 units PRBC,HH stable Iron 177/ ferritin 7/B12 350 EGD/colonoscopy today Hypertension Stable blood pressure Continue medications Morbid obesity. BMI 60.9 Discussed importance of weight management as this may be contributing to worsening of other comorbidities DVT prophylaxis with pneumatic compression boots due to severe anemia Attending Dr. Torre Full code Continued hospitalization for treatment of new onset atrial flutter and anemia requiring blood transfusions and frequent monitoring Quality Stroke Does the patient have a stroke diagnosis?: No VTE Prior VTE?: No VTE Risk Level:: Medical - moderate - high VTE Device Contraindication: N/A - Device Ordered VTE Drug Contraindication: Treatment Not Indicated
--- NOTE | 2022-01-26 12:16 | P.CDIC_ITS ---
CDI Concurrent Query Documentation Clarification: PHYSICIAN'S DOCUMENTATION REQUEST Date of Query: 01/26/22 1216 Patient Name: Bogdan Glasgow Admit Date: 01/23/22 Dear Doctor, A review of the medical record indicates additional documentation may be needed. Please review below and update the documentation accordingly. Clinical Indicators: Risk Factors/Clinical Indicators/Treatments Positive occult stool, short of breath, BP 111/52 GI consult: Iron deficiency anemia, hemoccult positive stool. HGB 4.9 5.8 HCT 18.5 21.1 Transfused 4 units PRBC, HH stable. PN: Acute microcytic anemia, positive stool occult. Based on the above, could you clarify in the Progress Notes which of the following is the most likely type of anemia you are evaluating, treating, and/or monitoring? * Acute blood loss anemia * Chronic iron deficiency anemia secondary to acute on chronic blood loss * Chronic iron deficiency anemia due to acute blood loss * Other ? please specify * Unable to determine Use of terms such as suspected, likely, concern for, or probable (associated with a specific diagnosis that is being evaluated, monitored, or treated as if it exists) are acceptable and can be coded in the inpatient setting, when docume nted at the time of discharge. Thank you, Diann Arango [facility], CDIS Extension: [phone] Please use your independent medical judgment in providing your response. THIS QUERY IS PART OF THE PERMANENT MEDICAL RECORD Other Diagnosis: chronic iron deficiency anemia
--- NOTE | 2022-01-26 12:52 | PM.PNCARD ---
Subjective Subjective Date of Service: 01/26/22 Interval history: Seen and examined at bedside. Denying any symptoms. Continues to be in atrial flutter with variable heart rate. For colonoscopy today. Physical Exam Vital Signs: Last Vital Signs Temp 97.4 F 01/26/22 12:15 Pulse 93 01/26/22 12:15 Resp 18 01/26/22 12:15 BP 142/76 H 01/26/22 12:15 Pulse Ox 96 01/26/22 12:15 O2 Del Method 01/26/22 12:15 BMI result Body Mass Index 60.9 GENERAL APPEARANCE: in no acute distress, morbidly obese. NECK: no carotid bruit, no jugular venous distention. SKIN: no suspicious lesions, warm and dry. HEART: no murmurs, regular rate and rhythm. LUNGS: clear to auscultation bilaterally. ABDOMEN: soft, nontender. EXTREMITIES: no edema. PERIPHERAL PULSES: equal. NEUROLOGIC: No gross deficits, AAO X 3 Objective Labs and Meds Result diagrams: 01/26/22 07:06 01/25/22 06:14 Lab results: Laboratory Results - last 24 hr 01/24/22 01/26/22 06:37 07:06 WBC 10.1 RBC 4.08 L Hgb 8.1 L Hct 27.9 L MCV 68.4 L MCH 19.9 L MCHC 29.0 L RDW 30.5 H Plt Count 267 MPV 9.5 Absolute Nucleated RBC 0.000 Nucleated RBC % (auto) 0.0 Smear Path Review SEE NOTE Progress Note: A&P Assessment and plan (1) New onset atrial flutter: Status: Acute (2) Anemia: Status: Acute Plan 56 male with new diagnosis of atrial flutter and anemia. Rate control strategy. No anticoagulation till we have found the cause of anemia. Not clinically in CHF. Laying flat in bed. Will wait for the colonoscopy result today. Thank you for allowing me to participate in the care of your patient. Please feel free to contact me if you have any questions. Time Spent With Patient Time: Total time spent is greater than 50% in coordination of care (as documented) at patient's floor/unit and/or counseling patient: Progress Note: Quality Stroke Does the patient have a stroke diagnosis?: No Procedures Date of Service Date of Service: 01/26/22
--- NOTE | 2022-01-26 13:07 | P.CONAN_ITS ---
HPI - Anesthesia Eval Consult details Narrative: acute microcytic anemia PMFSH Active Problems Active Problems: All Active Problems (Updated 01/25/22 @ 10:40 by Jatinder Dhillon MD) Preoperative cardiovascular examination (Acute) Atrial flutter with rapid ventricular response (Acute) Positive occult stool blood test (Acute) Microcytic anemia (Acute) New onset atrial flutter (Acute) Atrial flutter (Acute) Anemia (Acute) Chest pain (Acute) Shortness of breath (Acute) Palpitations (Acute) GI bleed (Acute) Chronic GERD (Acute) Essential hypertension (Acute) Lumbar pain (Acute) Left hip pain (Acute) Osteoarthritis of left knee (Acute) Hypoparathyroidism after procedure (Acute) Left leg pain (Acute) Encounter for physical examination (Acute) Super-super obese (Acute) Iron deficiency anemia (Acute) Past Medical History Medical History Encounter for physical examination Hypoparathyroidism after procedure Iron deficiency anemia Left leg pain Renal calculi Super-super obese Family History Family History Mother Hypertension Father Colon cancer, Onset Age: 82 Stroke Family history of problems with anesthesia: No Surgical History Surgical History History of parathyroid surgery History of Problems with Anesthesia: No Social History Social History Household Members: Spouse Housing: House Do you presently have visiting nurse or other home services: No Alcohol intake: former Patient Tobacco Use Status: Former Tobacco user Tobacco use type: Cigarette Smoked in Last 30 Days: No e-Cigarette/Vaping Use: Never Used Patient Interested in Nicotine Replacement: No Patient Given Instructions on How to Stop Smoking: No Second Hand Smoke Exposure: No Use of substances other than those prescribed or required for medical reasons: No Currently Displaying Signs/Symptoms of Drug Intoxication Withdrawal: No Any prior treatment program specific to substance use: No Have you been hit, kicked, punched, or otherwise hurt by someone within the past year? If so, by whom?: No Do you feel safe in your current relationship?: Yes Is there a partner from a previous relationship who is making you feel unsafe now?: No Are you made to feel afraid or neglected: No Are you DNR?: No Advance Directives: No Advance Directives Information Provided: No Do you have thoughts of harming others: None Do you have a plan to hurt others: No Plan Recently lost weight without trying: No Eating poorly because of decreased appetite: No Nutrition Risks: No Nutritional Risk Poor oral hygiene: No service: No Current occupational status: unemployed Cognitive needs: Yes Hearing needs: No Vision needs: Yes Meds Allergies Allergy/AdvReac Type Severity Reaction Status Date / Time Penicillins [PENICILLINS] Allergy Intermediate ITCHING Verified 08/26/21 13:50 SEAFOOD Allergy Intermediate ITCHING/THROAT Uncoded 08/26/21 13:50 SWELLING shellfish Allergy Intermediate rash Uncoded 08/26/21 13:50 Active Medications: Current Medications Acetaminophen (Acetaminophen 325 Mg Tablet) 650 mg PO Q6H PRN PRN Reason: Pain, Mild (Pain Scale 1-3) Docusate Sodium (Docusate Sodium 100 Mg Capsule) 100 mg PO BID [facility] Last Admin: 01/26/22 08:06 Dose: Not Given Hydrochlorothiazide (Hydrochlorothiazide 25 Mg Tablet) 25 mg PO DAILY [facility]; Protocol Last Admin: 01/26/22 08:06 Dose: 25 mg Diltiazem HCl 125 mg/ Sodium (Chloride) 125 mls @ 0 mls/hr IVCONT .Q0M [facility]; Protocol Last Titration: 01/24/22 18:26 Dose: 0 mg/hr, 0 mls/hr Lidocaine (Lidocaine 4 % Patch Adh..Patch) 1 patch TRANSDERMA DAILY [facility] Last Admin: 01/26/22 08:07 Dose: 1 patch Metoprolol Tartrate (Metoprolol Tartrate 50 Mg Tablet) 50 mg PO TID [facility]; Protocol Last Admin: 01/26/22 08:06 Dose: 50 mg Multivitamins/Vitamin C (Multivitamin Tablet) 1 tab PO MoFr@0900 [facility] Last Admin: 01/26/22 08:06 Dose: 1 tab Omeprazole (Omeprazole 20 Mg Capsule.Dr) 20 mg PO DAILY@0630 [facility] Last Admin: 01/26/22 05:41 Dose: Not Given Ondansetron HCl (Ondansetron Hcl 4 Mg/2 Ml Vial) 4 mg IVPUSH Q8H PRN PRN Reason: Nausea and Vomiting Pharmacy Consult (Consult Rx Perform Med Rec) 1 each MISCELLANE ONCE PRN PRN Reason: Consult order Sodium Chloride (0.9 % Sodium Chloride Flush 3 Ml Syringe) [facility] Admin: 01/26/22 08:05 Dose: 3 ml Home Medications Medication Instructions Recorded Confirmed Last Taken Type aspirin 325 mg tablet 325 mg PO BID PRN Pain (Scale 01/23/22 01/23/22 01/23/22 History Score 1-3) [id number] 0.4 mg-calcium 162 1 tab PO 2XW 01/23/22 01/23/22 Unknown History mg-iron 18 [id number] tablet omeprazole 20 mg capsule,delayed 20 mg PO DAILY@0630 01/23/22 01/23/22 01/22/22 History release sulindac 200 mg tablet 1 tab PO BID 01/23/22 01/23/22 01/22/22 History Exam Exam Date and Time: January 26, 2022 1307 Height,Weight and Vital Signs: Height 5 ft 5 in Weight 166.1 kg Last Vital Signs Temp 97.4 F 01/26/22 12:15 Pulse 93 01/26/22 12:15 Resp 18 01/26/22 12:15 BP 142/76 H 01/26/22 12:15 Pulse Ox 96 01/26/22 12:15 O2 Del Method 01/26/22 12:15 Pertinent Lab Results Pertinent Lab Results: Laboratory Tests 01/23/22 01/23/22 01/23/22 18:22 18:22 18:22 WBC 8.1 RBC 3.15 L Hgb 4.9 L* Hct 18.5 L* MCV 58.7 L MCH 15.6 L MCHC 26.5 L RDW 21.6 H Plt Count 354 MPV 9.0 L Immature Gran % (Auto) 0.6 H Neut % (Auto) 78.4 H Lymph % (Auto) 8.9 L [place] % (Auto) 10.5 Eos % (Auto) 1.0 Baso % (Auto) 0.6 Lymph # (Auto) 0.7 L [place] # (Auto) 0.9 Eos # (Auto) 0.1 Baso # (Auto) 0.1 Abs Immat Gran (auto) 0.05 H Absolute Neuts (auto) 6.3 Absolute Nucleated RBC 0.020 H Nucleated RBC % (auto) 0.2 Smear Path Review D-Dimer High Sensitivty 320 Sodium 139 Potassium 4.1 Chloride 105 Carbon Dioxide 25 Anion Gap 13 BUN 16 Creatinine 0.80 Estim Creat Clear Calc 154.2 Estimated GFR > 60 Random Glucose 97 Calcium 8.9 Magnesium 1.6 Iron TIBC % Saturation Unsat Iron Binding Ferritin Total Bilirubin 0.4 AST 8 ALT 9 Alkaline Phosphatase 104 Troponin I High Sens B-Natriuretic Peptide Total Protein 6.6 Albumin 4.0 Vitamin B12 TSH 1.24 Stool Occult Blood COVID-19 ([facility]) COVID-19 Clin Com Blood Type Antibody Screen Crossmatch 01/23/22 01/23/22 01/23/22 18:22 18:22 19:22 WBC RBC Hgb Hct MCV MCH MCHC RDW Plt Count MPV Immature Gran % (Auto) Neut % (Auto) Lymph % (Auto) [place] % (Auto) Eos % (Auto) Baso % (Auto) Lymph # (Auto) [place] # (Auto) Eos # (Auto) Baso # (Auto) Abs Immat Gran (auto) Absolute Neuts (auto) Absolute Nucleated RBC Nucleated RBC % (auto) Smear Path Review D-Dimer High Sensitivty Sodium Potassium Chloride Carbon Dioxide Anion Gap BUN Creatinine Estim Creat Clear Calc Estimated GFR Random Glucose Calcium Magnesium Iron TIBC % Saturation Unsat Iron Binding Ferritin Total Bilirubin AST ALT Alkaline Phosphatase Troponin I High Sens 12.7 B-Natriuretic Peptide 96 Total Protein Albumin Vitamin B12 TSH Stool Occult Blood COVID-19 ([facility]) COVID-19 Clin Com Blood Type A Positive Antibody Screen NEGATIVE Crossmatch See Detail 01/23/22 01/23/22 01/24/22 21:44 23:10 06:37 WBC 7.7 RBC 3.30 L Hgb 5.8 L* Hct 21.1 L MCV 63.9 L D MCH 17.6 L MCHC 27.5 L RDW 26.9 H Plt Count 317 MPV 9.4 Immature Gran % (Auto) 0.4 Neut % (Auto) 79.1 H Lymph % (Auto) 10.6 L [place] % (Auto) 8.6 Eos % (Auto) 0.5 Baso % (Auto) 0.8 Lymph # (Auto) 0.8 L [place] # (Auto) 0.7 Eos # (Auto) 0.0 Baso # (Auto) 0.1 Abs Immat Gran (auto) 0.03 Absolute Neuts (auto) 6.1 Absolute Nucleated RBC 0.020 H Nucleated RBC % (auto) 0.3 H Smear Path Review SEE NOTE D-Dimer High Sensitivty Sodium Potassium Chloride Carbon Dioxide Anion Gap BUN Creatinine Estim Creat Clear Calc Estimated GFR Random Glucose Calcium Magnesium Iron TIBC % Saturation Unsat Iron Binding Ferritin Total Bilirubin AST ALT Alkaline Phosphatase Troponin I High Sens B-Natriuretic Peptide Total Protein Albumin Vitamin B12 TSH Stool Occult Blood POSITIVE COVID-19 ([facility]) Negative COVID-19 Clin Com See Note Blood Type Antibody Screen Crossmatch 01/24/22 01/24/22 01/25/22 06:37 13:42 01:43 WBC RBC Hgb 6.8 L* 8.5 L D Hct 23.9 L 27.5 L MCV MCH MCHC RDW Plt Count MPV Immature Gran % (Auto) Neut % (Auto) Lymph % (Auto) [place] % (Auto) Eos % (Auto) Baso % (Auto) Lymph # (Auto) [place] # (Auto) Eos # (Auto) Baso # (Auto) Abs Immat Gran (auto) Absolute Neuts (auto) Absolute Nucleated RBC Nucleated RBC % (auto) Smear Path Review D-Dimer High Sensitivty Sodium 138 Potassium 3.7 Chloride 105 Carbon Dioxide 24 Anion Gap 13 BUN 16 Creatinine 0.72 Estim Creat Clear Calc 171.4 Estimated GFR > 60 Random Glucose 86 Calcium 8.4 Magnesium Iron 177 H TIBC 446 H % Saturation 40 Unsat Iron Binding 269 Ferritin 7 L Total Bilirubin AST ALT Alkaline Phosphatase Troponin I High Sens B-Natriuretic Peptide Total Protein Albumin Vitamin B12 TSH Stool Occult Blood COVID-19 ([facility]) COVID-19 Clin Com Blood Type Antibody Screen Crossmatch 01/25/22 01/25/22 01/25/22 06:14 06:14 06:14 WBC 9.7 RBC 3.94 L Hgb 8.1 L Hct 27.2 L MCV 69.0 L D MCH 20.6 L MCHC 29.8 L RDW 29.6 H Plt Count 289 MPV 9.7 Immature Gran % (Auto) Neut % (Auto) Lymph % (Auto) [place] % (Auto) Eos % (Auto) Baso % (Auto) Lymph # (Auto) [place] # (Auto) Eos # (Auto) Baso # (Auto) Abs Immat Gran (auto) Absolute Neuts (auto) Absolute Nucleated RBC 0.040 H Nucleated RBC % (auto) 0.4 H Smear Path Review D-Dimer High Sensitivty Sodium 137 Potassium 4.0 Chloride 104 Carbon Dioxide 24 Anion Gap 13 BUN 16 Creatinine 0.72 Estim Creat Clear Calc 171.4 Estimated GFR > 60 Random Glucose 85 Calcium 8.3 L Magnesium Iron TIBC % Saturation Unsat Iron Binding Ferritin Total Bilirubin AST ALT Alkaline Phosphatase Troponin I High Sens B-Natriuretic Peptide Total Protein Albumin Vitamin B12 350 TSH Stool Occult Blood COVID-19 ([facility]EL) COVID-19 [employer] Blood Type Antibody Screen Crossmatch 01/26/22 07:06 WBC 10.1 RBC 4.08 L Hgb 8.1 L Hct 27.9 L MCV 68.4 L MCH 19.9 L MCHC 29.0 L RDW 30.5 H Plt Count 267 MPV 9.5 Immature Gran % (Auto) Neut % (Auto) Lymph % (Auto) [place] % (Auto) Eos % (Auto) Baso % (Auto) Lymph # (Auto) [place] # (Auto) Eos # (Auto) Baso # (Auto) Abs Immat Gran (auto) Absolute Neuts (auto) Absolute Nucleated RBC 0.000 Nucleated RBC % (auto) 0.0 Smear Path Review D-Dimer High Sensitivty Sodium Potassium Chloride Carbon Dioxide Anion Gap BUN Creatinine Estim Creat Clear Calc Estimated GFR Random Glucose Calcium Magnesium Iron TIBC % Saturation Unsat Iron Binding Ferritin Total Bilirubin AST ALT Alkaline Phosphatase Troponin I High Sens B-Natriuretic Peptide Total Protein Albumin Vitamin B12 TSH Stool Occult Blood COVID-19 ([facility]EL) COVID-19 [employer] Blood Type Antibody Screen Crossmatch Airway Mallampati Class: III TM Dist: >3cm Neck ROM: Full Loose/Missing/Broken Teeth: Yes Heart: irreg irreg s1s2 Lungs: cta b/l Assessment and Plan Assessment Anesthesia Assessment: Anesthesia Plan Discussed and Chart Reviewed Final Anesthetic Review Family History of Problems with Anesthesia: No History of Problems with Anesthesia: No NPO: Yes ASA Class: III and Emergency Final Preanesthetic Review: No Changes in Pt Med Stat, Meds/Allgs Chart Reviewed, Consent Obtained/Reviewed and Anes Risks/Benef Reviewed Patient Risk: High Procedure Risk: Intermediate Assessment/Block/Sedation in SS: Assess/Block/Sedation-SS Anesthetic Plan Anesthetic Plan: GA, MAC: and Agree w/ Assess. and Plan Disposition: Standard PACU
--- NOTE | 2022-01-26 15:03 | PM.EVENT ---
Event Note Date of Service: 01/26/22 Event Note: EGD/colon note dictated EGD and colon are both normal large hiatal hernia duodenum biopsied advance diet start iron/vit c ok for anticoagualtion if needed
--- NOTE | 2022-01-26 15:05 | P.BOP_ITS ---
Brief Operative Note Date of Service: 01/26/22 Pre-op diagnosis: anemia, heme pos Post-op diagnosis: same Surgeon: Cali Haynes Anesthesia: MAC Was an Dairy C[employer] used for this Procedure?: No Estimated blood loss (mL): 2 Pathology: other Condition: stable Disposition: PACU
--- NOTE | 2022-01-26 16:53 | MHC.CM.PN ---
Per MD rounds, no dc today. Patient scheduled for EGD and colonascopy today. DP home no services will transport.
[2022-01-26] MEDS: Docusate Sodium 100 MG CAPSULE PO (21:31)
[2022-01-27 04:00] VITALS: BP 131/60; PULSE 84; RESP 20; TEMP 36.6; O2SAT 94
[2022-01-27 07:30] LABS: Hematocrit 26.4 % (42.0-52.0); Hemoglobin 7.8 g/dl (14.0-18.0); Mean Corpuscular HGB Conc 29.5 g/dl (31.0-36.0); Mean Corpuscular Hemoglobin 20.7 pg (27.0-33.0); Mean Corpuscular Volume 70.2 fL (80.0-98.0); Mean Platelet Volume 9.9 fL (9.4-12.4); Platelet Count 252 X10*3/uL (160-400); Red Blood Count 3.76 X10*6/uL (4.60-5.80); Red Cell Distribution Width 31.9 % (11.0-16.0); White Blood Count 8.6 X10*3/uL (4.8-10.8)
[2022-01-27 07:57] VITALS: BP 126/61; PULSE 84; RESP 16; TEMP 36.8; O2SAT 93
--- NOTE | 2022-01-27 09:19 | PM.DS ---
DS: Providers Provider Date of Service: 01/27/22 Date of admission: 01/23/22 22:02 Primary care physician: Carolin Whitney MD Consults: 01/23/22 22:01 Consult to Cardiology Routine Consulting Provider: Jatinder Dhillon Reason for consultation: new onset Aflutter 01/23/22 22:05 Consult to Gastroenterology Routine Consulting Provider: Cali Haynes Reason for consultation: stool occult +ve , severe anemia Has provider been notified: Yes 01/23/22 22:23 Consult to Gastroenterology Stat Consulting Provider: Cali Haynes Reason for consultation: LGIB 01/26/22 16:02 Consult to Hematology / Oncology Routine Consulting Provider: Janis Jefferson Reason for consultation: anemia Attending physician on discharge: Pollo Torre Discharging clinician: Nani Holloway DS: Diagnosis Discharge Diagnosis (1) New onset atrial flutter: Status: Acute (2) Anemia: Status: Acute DS: Summary Hospital Course Hospital Course: History and physical as per admitting provider 56-year-old male with past medical history of hypertension, presents the hospital with complaints of chest discomfort and palpitations.? Patient reports that his symptoms started 2 days with progressively worsening symptoms.? He reports the pain/discomfort in the chest is on the left side, worse with deep inspiration, nonradiating, constant, rest.? He also reports that he has pain when he moves.? He denies any dizziness, he has been feeling short of breath with minimal exertion.? Reports chronic anemia since childhood, for which he takes artery supplement but has not been taking his iron supplement as he was told that his levels were better on previous visits with his doctor.? Denies any melena, but reports sometimes when he is constipated he has some bleeding mostly when he wipes. Patient denies any abdominal pain nausea or vomiting, no diarrhea constipation, no urinary symptoms and no lower extremity edema.?On arrival to the ED patient was found to have a heart rate in the 140s to 150s, patient started on Cardizem drip with improvement of his heart rate. Labs on arrival significant for hemoglobin of 4.9 with a baseline of around 10, hematocrit of 18.5, stool occult positive. Chest CT angiogram shows no pulmonary embolism, large hiatal hernia, multiple nonobstructing left renal calculi Troponin of 12.7, BNP of 96 . New onset atrial flutter Likely secondary to severe anemia status post Cardizem drip metoprolol 50 mg TID Echocardiogram EF 60-60% with mildly decreased right ventricular systolic function, dilated left atrium, no evidence of regional wall motion abnormalities Converted to normal sinus rhythm, chads 2 Vasc score 1, no need for anticoagulation at this time Acute microcytic anemia, chronic Positive stool occult but no bleeding found on EGD and colonoscopy Received total 4 units PRBC,HH stable Iron 177 (likely high because checked near the time a transfusion)/ ferritin 7/B12 350 EGD/colonoscopy hiatal hernia Hypertension Stable blood pressure Continue medications Morbid obesity.? BMI 60.9 Discussed importance of weight management as this may be contributing to worsening of other comorbidities Time Spent with Patient Time attestation: Total time spent providing and/or coordinating discharge services: Discharge coordination time: Greater than 30 minutes Quality: Safe Use of Opioids Does Pt have an Active Cancer Diagnosis on the Problem List?: No Quality: Stroke Does the patient have a stroke diagnosis?: No Physical Exam Vital Signs: Vital Signs: Last Vital Signs Temp 98.3 F 01/27/22 07:57 Pulse 84 01/27/22 07:57 Resp 16 01/27/22 07:57 BP 126/61 01/27/22 07:57 Pulse Ox 93 01/27/22 07:57 O2 Del Method 01/27/22 07:57 O2 Flow Rate 6 01/26/22 13:53 BMI result Body Mass Index 60.9 Appearing in no acute distress head is normocephalic atraumatic eyes pupils are PERRLA sclera is anicteric mouth throat mucous membranes are intact and moist neck is supple no lymphadenopathy, no JVD noted lung sounds are clear to auscultation heart regular rate rhythm, clear S1, S2 positive bowel sounds, abdomen is soft, nontender neuro patient is alert x3, no focal deficits DS: Data Data Completed and Pending Pending studies at discharge: Pending at discharge 01/26/22 13:37 Surgical [PTH] Routine Labs on day of discharge: Laboratory Results - last 24 hr 01/27/22 06:54 WBC 8.6 RBC 3.76 L Hgb 7.8 L Hct 26.4 L MCV 70.2 L MCH 20.7 L MCHC 29.5 L RDW 31.9 H Plt Count 252 MPV 9.9 Absolute Nucleated RBC 0.000 Nucleated RBC % (auto) 0.0 Discharge Plan Discharge Anticipated Discharge Date/Time: 01/27/22 09:14 Patient Disposition: Home, Self-Care Discharge Diagnosis: New onset atrial flutter Acute on chronic microcytic anemia Hiatal hernia Referrals: Janis Jefferson MD [Physician] - 1 Week Carolin Moran MD [Primary Care Provider] - 1 Week Discharge Medications: New ascorbic acid (vitamin C) [Vitamin C] 500 mg Tablet 500 mg PO DAILY Qty: 30 0RF metoprolol tartrate 50 mg Tablet 50 mg PO TID Qty: 90 0RF Protocol: Hold for SBP/HR < HOLD for SBP < : 90 HOLD for HR < : 60 ferrous sulfate 324 mg (65 mg iron) Tablet,Delayed Release (Dr/Ec) 324 mg PO DAILY Qty: 30 0RF Continued lidocaine 5 % adhesive patch,medicated 1 patch topical DAILY 30 Days Qty: 30 11RF Rx Instructions: leave on most painful area for up to 12 hrs hydrochlorothiazide 25 mg tablet 25 mg PO DAILY 90 Days Qty: 90 3RF sulindac 200 mg tablet 1 tab PO BID [id number]-[id number] 0.4-162-18 mg Tablet 1 tab PO 2XW omeprazole 20 mg capsule,delayed release(DR/EC) 20 mg PO DAILY@0630 Discontinued aspirin 325 mg Tablet 325 mg PO BID PRN (Reason: Pain (Scale Score 1-3)) Discharge Orders: Discharge Order (Routine); Ordered 01/27/22 Ordered By: Nani Holloway Diet: Advance to usual diet Activity on Discharge: As tolerated Stand Alone Forms: Patient Portal Discharge page Care Plan Goals: Take all medications as prescribed Health Concerns: New onset atrial flutter Acute on chronic microcytic anemia Hiatal hernia Plan of Treatment: Follow-up with primary care provider as needed Follow-up with induction machine setter for further workup of anemia Assessment: See discharge summary
--- NOTE | 2022-01-27 09:55 | P.CNHO_ITS ---
Subjective - Subjective Chief complaint: Weakness, shortness of breath Patient: known to practice within the last 3 years Consult date: 01/27/22 Primary Care Provider: Caroiln Whitney MD Medical Summary: Diagnosis: Iron deficiency anemia Iron deficiency anemia dating back to childhood as per patient report. Has been on oral iron supplementation for years intermittently. He has had both EGD and colonoscopy at [facility], reportedly normal. History of hypogonadism. Blood work shows hemoglobin of 13.3 G/dL in April 2008, 9.4 G/dL in June 2015, 8.6 G/dL in July 2016, 9.4 G/dL in June 2019. Serum iron of 15 mcg/dL, iron saturation 3%, ferritin less than 1 in June 2019. Normal vitamin B12, normal fo late, normal TSH. Testosterone 305 NG/dL, low range of normal. HPI - Consult Narrative Reason for consult: Acute on chronic iron deficiency anemia Narrative: Bogdan Glasgow is a 56 year old male with a history of chronic iron deficiency anemia presenting with acute anemia with a hemoglobin ofgr 4.9 am/dL, n ecessitating multiple units of blood transfusion. His hemoglobin in July 2020 was 13.9 gram/dL but usually his hemoglobin ranges from 9-10 gram/dL. He has had multiple EGD and colonoscopy is over the years and no cause of bleed was ever found. He was on chronic oral iron supplementation until September 2021 when he to can self off the iron supplementation. For the last month and a half he got progressively weak with exertional shortness of breath, palpitation and eventually dizziness which prompted him to come to the emergency department. He denies abdominal discomfort, melena or hematochezia. No reflux symptoms. He had heme-positive stool, her EGD/colonoscopy on 01/26/2022 was normal, large hiatal hernia was seen. Because of severe anemia, he was also found to be in atrial flutter. He is now on Cardizem drip. Review of Systems - Constitutional Reports as per HPI, Reports no additional constitutional complaints, Denies anorexia, Denies poor appetite, Denies weight loss - Cardiovascular Reports no additional cardiovascular complaints - Respiratory Reports no additional respiratory complaints - Neurologic Reports no additional neurologic complaints, Reports as per HPI [facility] Medical History: Medical History (Last Reviewed 01/26/22 @ 13:08 by Tan Davalos MD) Encounter for physical examination Hypoparathyroidism after procedure Iron deficiency anemia Left leg pain Renal calculi Super-super obese Family History: Family History (Last Reviewed 01/26/22 @ 13:08 by Tan Davalos MD) Mother Hypertension Father Colon cancer, Onset Age: 82 Stroke Surgical History: Surgical History (Last Reviewed 01/26/22 @ 13:08 by Tan Davalos MD) History of parathyroid surgery Social History: Social History (Last Reviewed 01/26/22 @ 13:08 by Tan Davalos MD) Living Situation History: Household Members: Spouse Housing: House Do you presently have visiting nurse or other home services: No Alcohol History Details: 1. How often do you have a drink containing alcohol?: a. Never AUDIT-C Alcohol total score: 0 Last drink: Unknown Currently Displaying Signs/Symptoms of Alcohol Withdrawal: No Tobacco History: Patient Tobacco Use Status: Former Tobacco user Tobacco use type: Cigarette Smoked in Last 30 Days: No e-Cigarette/Vaping Use: Never Used Patient Interested in Nicotine Replacement: No Patient Given Instructions on How to Stop Smoking: No Second Hand Smoke Exposure: No Substance Use History: Use of substances other than those prescribed or required for medical reasons : No Currently Displaying Signs/Symptoms of Drug Intoxication Withdrawal: No Any prior treatment program specific to substance use: No Domestic Abuse History: Have you been hit, kicked, punched, or otherwise hurt by someone within the past year? If so, by whom?: No Do you feel safe in your current relationship?: Yes Is there a partner from a previous relationship who is making you feel unsafe now?: No Are you made to feel afraid or neglected: No Advance Directives: Advance Directives: No Advance Directives Information Provided: No Homicidal Assessment: Do you have thoughts of harming others: None Do you have a plan to hurt others: No Plan Nutrition Assessment: Recently lost weight without trying: No Eating poorly because of decreased appetite: No Nutrition Risks: No Nutritional Risk Poor oral hygiene: No Occupation Assessmet: service: No Current occupational status: unemployed Home Medications and Allergies Current Medications: Current Medications Acetaminophen (Acetaminophen 325 Mg Tablet) 650 mg PO Q6H PRN PRN Reason: Pain, Mild (Pain Scale 1-3) Acetaminophen (Acetaminophen 325 Mg Tablet) 650 mg PO ONCE PRN PRN Reason: Pain, Mild (Pain Scale 1-3) Ascorbic Acid (Ascorbic Acid 500 Mg Tablet) 500 mg PO DAILY [facility] Docusate Sodium (Docusate Sodium 100 Mg Capsule) 100 mg PO BID [facility] Last Admin: 01/26/22 21:31 Dose: 100 mg Ferrous Sulfate (Ferrous Sulfate 324 Mg Tablet.) 324 mg PO DAILY [facility] Hydrochlorothiazide (Hydrochlorothiazide 25 Mg Tablet) 25 mg PO DAILY [facility]; Protocol Last Admin: 01/26/22 08:06 Dose: 25 mg Diltiazem HCl 125 mg/ Sodium (Chloride) 125 mls @ 0 mls/hr IVCONT .Q0M [facility]; Protocol Last Titration: 01/24/22 18:26 Dose: 0 mg/hr, 0 mls/hr Lidocaine (Lidocaine 4 % Patch Adh..Patch) 1 patch TRANSDERMA DAILY [facility] Last Admin: 01/26/22 08:07 Dose: 1 patch Metoprolol Tartrate (Metoprolol Tartrate 50 Mg Tablet) 50 mg PO TID [facility]; Protocol Last Admin: 01/26/22 21:30 Dose: 50 mg Multivitamins/Vitamin C (Multivitamin Tablet) 1 tab PO MoFr@0900 [facility] Last Admin: 01/26/22 08:06 Dose: 1 tab Omeprazole (Omeprazole 20 Mg Capsule.) 20 mg PO DAILY@0630 [facility] Last Admin: 01/27/22 05:50 Dose: Not Given Ondansetron HCl (Ondansetron Hcl 4 Mg/2 Ml Vial) 4 mg IVPUSH Q8H PRN PRN Reason: Nausea and Vomiting Ondansetron HCl (Ondansetron Hcl 4 Mg/2 Ml Vial) 4 mg IVPUSH ONCE PRN PRN Reason: Nausea and Vomiting Pharmacy Consult (Consult Rx Perform Med Rec) 1 each MISCELLANE ONCE PRN PRN Reason: Consult order Sodium Chloride (0.9 % Sodium Chloride Flush 3 Ml Syringe) 3 ml IVFLUSH QSHIFT [facility] Last Admin: 01/26/22 21:33 Dose: 3 ml Home Medications Medication Instructions Recorded Confirmed Type [id number] 0.4 mg-calcium 162 1 tab PO 2XW 01/23/22 01/23/22 History mg-iron 18 [id number] tablet omeprazole 20 mg capsule,delayed 20 mg PO DAILY@0630 01/23/22 01/23/22 History release sulindac 200 mg tablet 1 tab PO BID 01/23/22 01/23/22 History Allergies Allergy/AdvReac Type Severity Reaction Status Date / Time Penicillins [PENICILLINS] Allergy Intermediate ITCHING Verified 08/26/21 13:50 SEAFOOD Allergy Intermediate ITCHING/THROAT Uncoded 08/26/21 13:50 SWELLING shellfish Allergy Intermediate rash Uncoded 08/26/21 13:50 Physical Exam Vital signs: Vital Signs Temp 98.3 F 01/27/22 07:57 Pulse 84 01/27/22 07:57 Resp 16 01/27/22 07:57 BP 126/61 01/27/22 07:57 Pulse Ox 93 01/27/22 07:57 O2 Del Method 01/27/22 07:57 O2 Flow Rate 6 01/26/22 13:53 Intake & Output 01/26/22 01/27/22 01/27/22 18:59 06:59 18:59 Intake Total 360 / 360 Output Total 400 / 400 Balance -400 / -40 360 / -40 Urine Output (Average ml/kg/hr) 0.20 0.20 Intake: Intake, Oral Amount 360 / 360 Output: Output, Urine Amount 400 / 400 Other: NPO Yes Evening Snack % Eaten 100 Number of Unmeasured Voids 2 Urine Urinal Bathroom Urine Color Yellow Last Bowel Movement 01/26/22 Weight 166.1 kg - Constitutional Present: no acute distress, obese - Routine HEENT Exam Head: Present: normal inspection Eye: Present: EOMI, PERRL - Routine Neck Exam Present: supple. Absent: lymphadenopathy - Routine Respiratory Exam Present: CTAB - Routine Cardiovascular Exam Cardiovascular: Present: S1, S2 - Routine Skin Exam Present: intact. Absent: cyanosis - Routine Neurological Exam Present: alert, oriented X3 Hem/Onc Consult Result - Labs CBC & Chem 7: 01/27/22 06:54 01/25/22 06:14 Labs: Short CBC 01/27/22 Range/Units 06:54 WBC 8.6 (4.8-10.8) X10*3/uL Hgb 7.8 L (14.0-18.0) g/dl Hct 26.4 L (42.0-52.0) % Plt Count 252 (160-400) X10*3/uL Assessment and Plan Patient Active problem list reviewed?: Yes (1) Anemia Status: Acute Assessment and plan: This is a pleasant 56-year-old male with acute worsening of chronic iron deficiency anemia. He has been told of anemia since childhood and has been on oral iron supplementation for many years. He has required intermittent parenteral iron therapy which he last received in 2019. In July 2020 his h emoglobin was normal, unfortunately he stopped taking oral iron in September 2021. He did not have any overt symptoms of gastrointestinal blood losses but he has developed significant iron deficiency anemia. He has received blood transfusions, agree with oral iron supplementation. Will also arrange for parenteral iron therapy as outpatient. If anemia does not improve in spite of correction of iron deficiency, further hematological workup can be performed. Patient was advised to follow-up in the next week to 10 days in hematology clinic. I thank you very much for this consultation. - Time Spent With Patient Time Spent with Patient (in minutes): 15
[2022-01-27] MEDS: Ferrous Sulfate 324 MG TABLET.DR PO (10:07)
[2022-01-27] MEDS: Docusate Sodium 100 MG CAPSULE PO (10:08)
[2022-01-27] MEDS: Metoprolol Tartrate 50 MG TABLET PO (10:08)
[2022-01-27] MEDS: Ascorbic Acid 500 MG TABLET PO (10:08)
[2022-01-27] MEDS: Lidocaine 4 % Patch ADH..PATCH 1 PATCH TRANSDERMA (10:08)
[2022-01-27] MEDS: hydroCHLOROthiazide 25 MG TABLET PO (10:08)
[2022-01-27] MEDS: 0.9 % Sodium Chloride Flush 3 ML SYRINGE IVFLUSH (10:09)
[2022-01-27] MEDS: Acetaminophen 325 MG TABLET 650 MG PO (10:10)
--- NOTE | 2022-01-27 10:26 | MHC.CM.PN ---
Patient is discharged to home today. GI scoped pt no bleeding. He will discharge home self care. Pts will provide transportation home.
--- NOTE | 2022-01-27 12:17 | HO.POSTANES ---
Post Anesthesia Evaluation Post Anesthesia Evaluation Vital Signs: Vital Signs Temp Pulse Resp BP Pulse Ox O2 Del Method 01/27/22 07:57 98.3 F 84 16 126/61 93 Room Air 01/27/22 04:00 97.9 F 84 20 131/60 94 Room Air Anesthesia: Monitored Mental Status: Awake Pain Control: Satisfactory Nausea/Vomiting: None Hydration: Adequate Anesthesia-Related Issues: No Anes. Related Issues
--- NOTE | 2022-01-28 09:25 | OP_ITS ---
SURGEON: Cali Haynes MD PREOPERATIVE DIAGNOSIS: POSTOPERATIVE DIAGNOSIS: PROCEDURE PERFORMED: Upper endoscopy with biopsy, colonoscopy to the terminal ileum. ESTIMATED BLOOD LOSS: COMPLICATIONS: ANESTHESIA: ASSISTANTS: SPECIMENS: INDICATION: Anemia and Hemoccult-positive stool. DESCRIPTION OF PROCEDURE: History and physical performed. The procedure was performed on 01/26/2022. The risks and benefits of the procedure were explained to the patient. Informed consent was obtained. The patient was placed in the left lateral decubitus position. The Olympus video gastroscope was introduced into the esophagus, stomach, and duodenum. Examination was performed. The scope was removed. He was repositioned for colonoscopy. A digital rectal exam was performed and was found to be normal. The Olympus pediatric video colonoscope was introduced into the rectum and advanced to the cecum without difficulty. The cecum was identified by transillumination, palpation, and identification of ileocecal valve. Examination was performed. The scope was removed. He tolerated both procedures well and was taken to recovery in stable condition. FINDINGS: Upper endoscopy: 1. Esophagus: The esophagus was normal. There was no esophagitis. 2. Stomach: Showed large hiatal hernia. There was no bleeding. No ulcers were seen. There was no evidence of gastritis. 3. Duodenum: The bulb and second portion were normal. Antral biopsies were obtained. Colonoscopy: The terminal ileum was examined and appeared normal. The visualized colonic mucosa was within normal limits without evidence of masses or ulcers. No polyps were identified. No AVMs were seen. No bleeding was noted. Retroflexed examination showed small internal hemorrhoids. IMPRESSION: 1. Hiatal hernia. 2. Otherwise normal endoscopy and colonoscopy. RECOMMENDATION: 1. Follow up the biopsy results. 2. Advance diet. 3. Iron and vitamin C should be restarted. 4. Anticoagulation can be administered if necessary for cardiac issues. 5. Colonoscopy is recommended in 10 years for screening purposes in average risk individuals. MD SHAHBAZ Cabezas/LORI / [id number]
== END 2022-01-27 11:55 | disposition home or self-care (01) | DRG 663 ==
LOC: HO.ED 20:26 → HO.EDOVER 23:02 → HO.IMC 01-24 04:28
PROVIDERS: Internal Medicine Gastroenterology; Physician Assistant; Admitting Provider Internal Medicine; Emergency Provider Emergency Medicine; PCP Internal Medicine; Visit Provider Nurse Practitioner Acute Care
PROC: 0DB78ZX Excision of Stomach, Pylorus, Via Natural or Artificial Opening Endoscopic, Diagnostic (ICD-10-PCS; principal; 2022-01-26 12:00)
DX: D50.9 Iron deficiency anemia, unspecified (principal); I48.92 Unspecified atrial flutter; I11.0 Hypertensive heart disease with heart failure; Z68.44 Body mass index [BMI] 60.0-69.9, adult; K44.9 Diaphragmatic hernia without obstruction or gangrene; K64.8 Other hemorrhoids; E89.0 Postprocedural hypothyroidism; E66.01 Morbid (severe) obesity due to excess calories; Z20.822 Contact with and (suspected) exposure to COVID-19; Z87.891 Personal history of nicotine dependence; Z91.013 Allergy to seafood; Z88.0 Allergy status to penicillin; Z79.899 Other long term (current) drug therapy
CPT/HCPCS: 36415; 36430; 70450; 71045; 71275; 80048; 80053; 82272; 82607; 82728; 83540; 83735; 83880; 84443; 84484; 85014; 85018; 85025; 85027; 85379; 86850; 86900; 86901; 86923; 87635; 88305; 93005; 93306; 96365; 96366; 96375; 96376; 99285; J0153; P9016; Q9957; Q9967

== ENCOUNTER 2023-01-04 06:45 | Outpatient (REF) | payer OTHER, SELFPAY ==
[2023-01-04 07:02] LABS: MANUAL DIFF FLAG NO
[2023-01-04 07:37] LABS: Basophils Percent Auto 0.6 % (0-2); Eosinophils Absolute Auto 0.1 X10*3/uL (0.0-0.4); Eosinophils Percent Auto 2.2 % (0-4); Hematocrit 35.9 % (42.0-52.0); Hemoglobin 11.5 g/dl (14.0-18.0); Imm Gran Abs Auto 0.02 X10*3/uL (0.00-0.03); Imm Gran Pct Auto 0.3 % (0.0-0.4); Lymphocytes Absolute Auto 1.1 X10*3/uL (1.2-4.9); Lymphocytes Percent Auto 17.1 % (20-40); Mean Corpuscular Hemoglobin 28.9 pg (27.0-33.0); Mean Corpuscular Volume 90.2 fL (80.0-98.0); Mean Platelet Volume 9.8 fL (9.4-12.4); Monocytes Absolute Auto 0.6 X10*3/uL (0.1-1.2); Monocytes Percent Auto 9.6 % (2-11); Neutrophils Absolute Auto 4.5 x10*3/uL (2.0-8.3); Neutrophils Percent Auto 70.2 % (45-73); Platelet Count 329 X10*3/uL (160-400); Red Blood Count 3.98 X10*6/uL (4.60-5.80); Red Cell Distribution Width 14.5 % (11.0-16.0); White Blood Count 6.4 X10*3/uL (4.8-10.8)
[2023-01-04 08:35] LABS: Alanine Aminotransferase 9 U/L (0-40); Albumin Level 4.1 g/dL (3.5-5.0); Alkaline Phosphatase 84 U/L (39-117); Anion Gap 14 (12-20); Aspartate Amino Transferase 10 U/L (5-37); Bilirubin Total 0.4 mg/dL (0.0-1.0); Blood Urea Nitrogen 23 mg/dL (9-16); Carbon Dioxide 26 mmol/L (22-29); Chloride 104 mmol/L (96-108); Cholesterol 163 mg/dL (<200); Estimated Glomerular Filt Rate > 60; Glucose Fasting 89 mg/dL (60-99); HDL Cholesterol 42 mg/dL (>40); Iron 83 mcg/dL (45-160); LDL Cholesterol Calculated 100 mg/dL (<100); Percent Iron Saturation 23 % (15-50); Potassium 4.3 mmol/L (3.3-5.1); Sodium 140 mmol/L (135-145); Total Iron Binding Capacity 364 mcg/dL (228-428); Total Protein 7.1 g/dL (6.5-8.0); Triglycerides 108 mg/dL (<150); Unsaturated Iron Binding 281 ug/dL
== END 2023-01-04 06:46 | disposition home or self-care (01) ==
LOC: HO.LAB 06:45
PROVIDERS: PCP Internal Medicine; Visit Provider Internal Medicine
DX: D64.9 Anemia, unspecified (principal); I10 Essential (primary) hypertension; E78.5 Hyperlipidemia, unspecified
CPT/HCPCS: 36415; 80053; 80061; 83540; 85025

== ENCOUNTER 2023-01-05 11:27 | Outpatient (AMB) | payer OTHER, SELFPAY ==
--- NOTE | 2023-01-05 11:31 | MHC.PC.OV ---
Vital Signs 01/05/23 11:33 Height 5 ft 3 in Weight 365 lb 6 oz BMI 64.7 BP 120/72 Blood Pressure Location Lt brachial Position Sitting Pulse 86 Pulse Source Pulse Oximeter Pulse Oximetry (%) 95 Oxygen Delivery Method Room Air Intake Visit Reasons: bp Intake Note: Patient is here to follow up on HTN. Lab results Reconciliation Specialist Required: No Concert Singer: Not Required per policy Accompanied by: Self / Same As Patient Allergies Penicillins [PENICILLINS] Allergy (Intermediate, Verified 01/05/23 11:46) ITCHING SEAFOOD Allergy (Intermediate, Uncoded 01/05/23 11:46) ITCHING/THROAT SWELLING shellfish Allergy (Intermediate, Uncoded 01/05/23 11:46) rash Medication List - Last Reconciled 01/05/23 by NIKA La ascorbic acid (vitamin C) (Vitamin C) 500 mg PO DAILY ferrous sulfate (iron) 325 mg PO BID hydrochlorothiazide 25 mg PO DAILY 90 days lidocaine 5% 1 patch topical DAILY 30 days [id number]-dgk-YB-Ff-Aj-fkdrbeu-lutein 0.4-162-18 mg 1 tab PO 2XW omeprazole 20 mg PO DAILY@0630 90 days sulindac 200 mg PO BID 90 days Tobacco use date assessed: 01/05/23 Dental Screening Dental Screen Date: 01/05/23 Did you have a dental visit in the last 12 months?: No Did you have a dental problem in the last 6 months where you did not have access to dental care?: No Was dental information given to patient?: No HPI bp HPI Details Patient is a 57-year-old male who presents today to follow-up on chronic conditions. Patient of Dr. Vallejo. Medical history significant for iron deficiency anemia, super super obese-not interested in weight management referral-would like to be seen by dietitian, osteoarthritis of left knee-reports seeing orthopedics in the past-requested refill on sulindac which helps with pain, hypertension, chronic GERD. Patient reports that he is compliant with medications and denies side effects. Recent blood work results reviewed with the patient. [facility] Medical History Microcytic anemia Anemia Atrial flutter Hypoparathyroidism after procedure Left leg pain Encounter for physical examination Super-super obese Renal calculi Iron deficiency anemia Surgical History History of parathyroid surgery Family History Mother Hypertension Father Colon cancer, Onset Age: 82 Stroke Social History Household Members: Spouse Housing: House Do you presently have visiting nurse or other home services: No Alcohol intake: former Patient Tobacco Use Status: Former Tobacco user Tobacco use type: Cigarette e-Cigarette/Vaping Use: Never Used Second Hand Smoke Exposure: No service: No Current occupational status: unemployed Cognitive needs: Yes (cane) Hearing needs: No Vision needs: Yes (glasses) Questionnaire Thrive Questionnaire Date Thrive assessed: 08/10/22 JACQUELINE-7 AMB Questionnaire JACQUELINE-7 Date JACQUELINE - 7 assessed: 08/10/22 Source: Developed by Drs. Alton Preston, Alesia Rdz, Gerson Solorzano and colleagues, with an educational rena from [employer]. Review of Systems Const Denies body aches, Denies chills, Denies fever(s) and Denies headache(s) ENT Denies dizziness, Denies otalgia, Denies headache(s), Denies nasal discharge, Denies sinus pain and Denies sore throat Card Denies chest pain, Denies lightheadedness and Denies dyspnea Resp Denies cough, Denies dyspnea and Denies wheezing GI Denies abdominal pain Denies dysuria Musc Denies myalgias and Reports arthralgias Neuro Denies dizziness and Denies headache(s) Aller/Immun Denies wheezing Physical exam (Primary Care) Vital Signs: Last Vital Signs Pulse 86 01/05/23 11:33 BP 120/72 01/05/23 11:33 Pulse Ox 95 01/05/23 11:33 Oxygen Delivery Method Room Air 01/05/23 11:33 BMI result Body Mass Index 64.7 Tobacco/Smoking Status: Tobacco use Status Tobacco use date assessed 01/05/23 01/05/23 11:38 Patient Tobacco Use Status Former Tobacco user 01/05/23 11:38 Tobacco use type Cigarette 01/05/23 11:38 e-Cigarette/Vaping Use Never Used 01/05/23 11:38 Thrive Assessment: Date of Thrive Assessment Date Thrive assessed 08/10/22 01/05/23 11:38 Const Other: Ambulates with cane General: cooperative and no acute distress Orientation/consciousness: patient oriented x3 HENMT Head: Yes normocephalic and Yes atraumatic Throat: Yes posterior oropharynx normal Eyes General: appearance normal, both eyes and all related structures Neck Neck: Yes normal visual inspection, Yes full ROM and Yes no lymphadenopathy Resp Effort & Inspection: normal respiratory effort and able to speak in complete sentences Auscultation: clear to auscultation bilaterally, no crackles, no rales, no rhonchi and no wheezes Cardio Rate: regular rate Rhythm: regular rhythm Heart sounds: S1 normal heart sound present, S2 normal heart sound present and no murmurs GI Auscultation: normal bowel sounds Skin General skin exam: no rashes or lesions noted Neuro General: patient oriented x3 Gait exam (Neuro): Normal gait present Extrem General: Yes full ROM Assessment and Plan Assessment & Plan (1) Chronic GERD: Code(s): K21.9 - Gastro-esophageal reflux disease without esophagitis Plan: Stable with omeprazole Avoid GERD trigger foods (2) Essential hypertension: Code(s): I10 - Essential (primary) hypertension Plan: Goal BP equal or less than 140/90 Continue hydrochlorothiazide Low-salt diet and weight loss (3) Super-super obese: Code(s): E66.01 - Morbid (severe) obesity due to excess calories Plan: Healthy food choices and exercise as tolerated Dietitian referral (4) Iron deficiency anemia: Code(s): D50.9 - Iron deficiency anemia, unspecified Plan: On vitamin C and iron Continue to follow-up with Dr. Jefferson Plan Keep appointment with PCP as scheduled or follow-up sooner as needed Orders: Referrals Nutrition/Dietitian Referral E66.01 - Morbid (severe) obesity due to excess calories Medications: Refilled sulindac 200 mg PO BID 90 days 180 tabs 1RF Coding Level of Care Code Est Pt Level 4 (02661) Diagnoses Chronic GERD K21.9 Essential hypertension I10 Super-super obese E66.01 Iron deficiency anemia D50.9
[2023-01-05 11:33] VITALS: BP 120/72; PULSE 86; O2SAT 95; BMI 64.7
== END 2023-01-05 16:03 | disposition home or self-care (01) ==
PROVIDERS: PCP Internal Medicine; Visit Provider Nurse Practitioner Family
DX: I10 Essential (primary) hypertension (principal); E66.01 Morbid (severe) obesity due to excess calories; Z68.44 Body mass index [BMI] 60.0-69.9, adult; K21.9 Gastro-esophageal reflux disease without esophagitis; D50.9 Iron deficiency anemia, unspecified
CPT/HCPCS: 99214

== ENCOUNTER 2023-08-12 10:34 | Outpatient (REF) | payer OTHER, SELFPAY ==
[2023-08-12 10:56] LABS: MANUAL DIFF FLAG NO
[2023-08-12 11:42] LABS: Appearance Urine Clear; Color Urine Yellow; Glucose Urine UA Negative (Negative); Leukocyte Esterase Urine Small (1+) (Negative); Nitrite Urine Negative (Negative); PH 5.5 (5.0-9.0); UMIC TRIGGER UACC YES; Urine Blood Negative (Negative); Urine Ketones Negative (Negative); Urine Protein Negative (Neg-Trace)
[2023-08-12 11:44] LABS: Basophils Percent Auto 0.7 % (0-2); Eosinophils Absolute Auto 0.1 X10*3/uL (0.0-0.4); Eosinophils Percent Auto 1.5 % (0-4); Hematocrit 32.5 % (42.0-52.0); Hemoglobin 9.6 g/dl (14.0-18.0); Imm Gran Abs Auto 0.01 X10*3/uL (0.00-0.03); Imm Gran Pct Auto 0.2 % (0.0-0.4); Lymphocytes Absolute Auto 0.6 X10*3/uL (1.2-4.9); Lymphocytes Percent Auto 10.1 % (20-40); Mean Corpuscular HGB Conc 29.5 g/dl (31.0-36.0); Mean Corpuscular Hemoglobin 24.5 pg (27.0-33.0); Mean Corpuscular Volume 82.9 fL (80.0-98.0); Mean Platelet Volume 9.5 fL (9.4-12.4); Monocytes Absolute Auto 0.5 X10*3/uL (0.1-1.2); Monocytes Percent Auto 7.7 % (2-11); Neutrophils Absolute Auto 4.7 x10*3/uL (2.0-8.3); Neutrophils Percent Auto 79.8 % (45-73); Platelet Count 368 X10*3/uL (160-400); Red Blood Count 3.92 X10*6/uL (4.60-5.80); Red Cell Distribution Width 23.5 % (11.0-16.0); White Blood Count 5.8 X10*3/uL (4.8-10.8)
[2023-08-12 11:51] LABS: Bacteria Urine None Seen (None Seen); Hyaline Casts Urine 0-2 /LPF (0-2); RBC Urine 0-2 /HPF (0-2); Squamous Epithelial Cell Urine 0-2 /HPF (0-2); UACC Culture Trigger YES; WBC Urine 0-5 /HPF (0-5)
[2023-08-12 12:06] LABS: Parathyroid Hormone Intact 62.9 pg/mL (8.7-77.1)
[2023-08-12 12:09] LABS: Alanine Aminotransferase 10 U/L (0-40); Alkaline Phosphatase 82 U/L (39-117); Anion Gap 11 (12-20); Aspartate Amino Transferase 11 U/L (5-37); Bilirubin Total 0.3 mg/dL (0.0-1.0); Blood Urea Nitrogen 13 mg/dL (9-16); Calcium 9.2 mg/dL (8.4-10.2); Carbon Dioxide 29 mmol/L (22-29); Chloride 103 mmol/L (96-108); Cholesterol 168 mg/dL (<200); Estimated Glomerular Filt Rate > 60; Glucose Fasting 85 mg/dL (60-99); HDL Cholesterol 46 mg/dL (>40); Iron 21 mcg/dL (45-160); LDL Cholesterol Calculated 100 mg/dL (<100); Percent Iron Saturation 6 % (15-50); Potassium 3.9 mmol/L (3.3-5.1); Sodium 139 mmol/L (135-145); Total Iron Binding Capacity 379 mcg/dL (228-428); Total Protein 6.9 g/dL (6.5-8.0); Triglycerides 114 mg/dL (<150); Unsaturated Iron Binding 358 ug/dL
[2023-08-12 12:22] LABS: PSA,Total (Free>4and<10) 0.92 ng/mL (0.00-4.00)
[2023-08-12 12:24] LABS: Thyroid Stimulating Hormone 1.75 uIU/mL (0.32-4.0); Vitamin D 25-OH Total 19.8 ng/mL (>30)
[2023-08-12 12:36] LABS: Folate 10.7 ng/mL (> or = 4.0); Vitamin B12 536 pg/mL (200-900)
[2023-08-16 10:53] LABS: Calcium, Ionized 5.1 mg/dL (4.7-5.5)
[2023-08-17 20:28] LABS: Testosterone, Free 42.1 pg/mL (35.0-155.0); Testosterone, Total 268 ng/dL (250-1100)
== END 2023-08-12 10:35 | disposition home or self-care (01) ==
LOC: HO.LAB 10:34
PROVIDERS: PCP Internal Medicine; Visit Provider Internal Medicine
DX: D64.9 Anemia, unspecified (principal); E55.9 Vitamin D deficiency, unspecified; E89.2 Postprocedural hypoparathyroidism; E53.8 Deficiency of other specified B group vitamins; R30.0 Dysuria; E66.01 Morbid (severe) obesity due to excess calories; N52.9 Male erectile dysfunction, unspecified; E78.5 Hyperlipidemia, unspecified; Z12.5 Encounter for screening for malignant neoplasm of prostate
CPT/HCPCS: 36415; 80053; 80061; 81001; 82306; 82330; 82607; 82746; 83540; 83970; 84153; 84402; 84403; 84443; 85025; 87086

== ENCOUNTER 2023-08-16 13:13 | Outpatient (AMB) | payer OTHER, SELFPAY ==
[2023-08-16 13:21] VITALS: BP 136/80; PULSE 65; O2SAT 98; BMI 60.9
--- NOTE | 2023-08-16 13:21 | A.OFFPC_ITS ---
Vital Signs 08/16/23 13:21 Height 5 ft 5 in Weight 365 lb 15.477 oz BMI 60.9 BP 136/80 Blood Pressure Location Lt brachial Position Sitting Pulse 65 Pulse Source Pulse Oximeter Pulse Oximetry (%) 98 Oxygen Delivery Method Room Air Intake Visit Reasons: Annual Exam Intake Note: Patient is here today for a physical. Fire Lookout Required: No Accompanied by: Self / Same As Patient Allergies Penicillins [PENICILLINS] Allergy (Intermediate, Verified 08/16/23 13:34) ITCHING SEAFOOD Allergy (Intermediate, Uncoded 08/16/23 13:34) ITCHING/THROAT SWELLING shellfish Allergy (Intermediate, Uncoded 08/16/23 13:34) rash Medication List - Last Reconciled 08/16/23 by Carolin Whitney MD ascorbic acid (vitamin C) (Vitamin C) 500 mg PO DAILY diclofenac sodium 1% 2 grams topical QID 30 days ferrous sulfate (iron) 325 mg PO BID hydrochlorothiazide 25 mg PO DAILY 90 days lidocaine 5% 1 patch topical DAILY 30 days zi-sdz-SS-Oe-Lz-plwyimb-lutein 0.4-162-18 mg 1 tab PO 2XW omeprazole 20 mg PO DAILY@0630 90 days semaglutide (weight loss) (Wegovy) 0.25 mg (0.5 mL) subcut QWEEK 4 weeks sulindac 200 mg PO BID 90 days tirzepatide (Mounjaro) 2.5 mg (0.5 mL) subcut QWEEK 4 weeks Tobacco use date assessed: 08/16/23 Dental Screening Dental Screen Date: 08/16/23 Did you have a dental visit in the last 12 months?: No Did you have a dental problem in the last 6 months where you did not have access to dental care?: No Was dental information given to patient?: Patient has dentist HPI HPI Comments History of Present Illness Details This is a 58-year-old male with iron-deficiency anemia, hypertension and super super obesity that comes for his physical exam. Last colonoscopy was 2021 which was normal. Anemia is follow by Hematology Oncology and he receives iron infusions. Blood pressure stable. He has obese with a BMI of 60.9 and has tried diet and exercise with no significant improvement. He declines weight loss surgery due to rastafarian beliefs. I will start him on Wegovy. Labs were discussed. He is accompanied by and walks with a cane for gait stability due to bilateral knee and low back pain. [facility] Medical History (Updated 08/16/23 @ 13:56 by Carolin Whitney MD) Microcytic anemia Anemia Atrial flutter Hypoparathyroidism after procedure Left leg pain Encounter for physical examination Super-super obese Renal calculi Iron deficiency anemia Surgical History History of parathyroid surgery Family History Mother Hypertension Father Colon cancer, Onset Age: 82 Stroke Social History Household Members: Spouse Housing: House Do you presently have visiting nurse or other home services: No Alcohol intake: former Patient Tobacco Use Status: Former Tobacco user Tobacco use type: Cigarette e-Cigarette/Vaping Use: Never Used Second Hand Smoke Exposure: No service: No Current occupational status: unemployed Cognitive needs: Yes (cane) Hearing needs: No Vision needs: Yes (glasses) Questionnaire PHQ-9 Over the last 2 weeks, how often have you been bothered by any of the following problems? 1. Little interest or pleasure in doing things: not at all 2. Feeling down, depressed, or hopeless: not at all 3. Trouble falling or staying asleep, or sleeping too much: not at all 4. Feeling tired or having little energy: not at all 5. Poor appetite or overeating: not at all 6. Feeling bad about yourself - or that you are a failure or have let yourself or your family down: not at all 7. Trouble concentrating on things, such as reading the newspaper or watching television: not at all 8. Moving or speaking so slowly that other people could have noticed. Or the opposite - being so fidgety or restless that you have been moving around a lot more than usual: not at all 9. Thoughts that you would be better off or of hurting yourself in some way: not at all Total score: 0 Depression Screening Interpretation: Negative Depression Screening Done: Yes 33473 - PHQ-9 Billing: Yes Source: Developed by Drs. Alton L. KaryAlesia rabago Kurt Kroenke and colleagues, with an educational rena from [employer]. Thrive Questionnaire Date Thrive assessed: 08/10/22 AUDIT C Alcohol Use Questionnaire (AUDIT-C) 1. How often do you have a drink containing alcohol?: Never 3. How often do you have six or more drinks on one occasion?: Never Total Score: 0 Score Reviewed/Action Taken: No JACQUELINE-7 AMB Questionnaire JACQUELINE-7 Date JACQUELINE - 7 assessed: 08/16/23 Feeling nervous, anxious, or on edge: 0 = Not at all Not being able to stop or control worryin = Not at all Worrying too much about different things: 0 = Not at all Trouble relaxin = Not at all Being so restless that it is hard to sit still: 0 = Not at all Becoming easily annoyed or irritable: 0 = Not at all Feeling afraid as if something awful might happen: 0 = Not at all Total JACQUELINE-7 score (0-4 normal; 5-9 mild; 10-14 moderate; 15-21 severe): 0 Source: Developed by Drs. Alton Preston, Gerson Perez and colleagues, with an educational rena from [employer]. JACQUELINE-7 Assessment Billing JACQUELINE-7 Assessment Tool: JACQUELINE-7 Assessment 43634 Review of Systems Const All systems reviewed & are unremarkable except as noted in HPI and below Card Denies chest pain at rest, Denies chest pain with activity, Denies edema, Denies irregular heart rhythm, Denies claudication, Denies dyspnea, Denies dyspnea on exertion, Denies orthopnea, Denies paroxysmal nocturnal dyspnea and Denies slow heart rate Resp Denies cough, Denies dyspnea and Denies dyspnea on exertion GI Denies abdominal pain, Denies change in bowel habits, Denies excessive flatus, Denies nausea and Denies vomiting Physical exam (Primary Care) Vital Signs: Last Vital Signs Pulse 65 08/16/23 13:21 BP 136/80 08/16/23 13:21 Pulse Ox 98 08/16/23 13:21 Oxygen Delivery Method Room Air 08/16/23 13:21 BMI result Body Mass Index 60.9 BMI Assessment/Plan discussion: High BMI High, discussed plan: lifestyle, weight reduction, dietary and physical activity Tobacco/Smoking Status: Tobacco use Status Tobacco use date assessed 08/16/23 08/16/23 13:28 Patient Tobacco Use Status Former Tobacco user 08/16/23 13:28 Tobacco use type Cigarette 08/16/23 13:28 e-Cigarette/Vaping Use Never Used 08/16/23 13:28 PHQ-9: PHQ-9 Score PHQ-9: Total score 0 08/16/23 13:28 Depression Screening Interpretation: Negative Thrive Assessment: Date of Thrive Assessment Date Thrive assessed 08/10/22 08/16/23 13:28 Const General: cooperative Orientation/consciousness: patient oriented x3 Limitations: ambulation with cane HENMT Head: Yes normal to inspection, Yes normocephalic and Yes atraumatic Ears: external ears normal Eyes General: appearance normal, both eyes and all related structures Eyelids: Yes eyelids normal Conjunctivae: conjunctivae normal Neck Neck: Yes normal visual inspection and Yes supple Resp Effort & Inspection: normal respiratory effort Auscultation: clear to auscultation bilaterally Cardio Jugular venous distension: no JVD Rate: regular rate Rhythm: regular rhythm Heart sounds: S1 normal heart sound present and S2 normal heart sound present GI Inspection: Yes normal to inspection Palpation (GI): Soft to palpation and nontender Auscultation: normal bowel sounds Skin General skin exam: no rashes or lesions noted Neuro General: patient oriented x3 and no focal motor deficits Extrem General: Yes full ROM Psych Appearance: grossly normal Assessment and Plan Assessment & Plan (1) Physical exam: Code(s): Z00.00 - Encounter for general adult medical examination without abnormal findings Plan: Repeat in a year. (2) Super-super obese: Code(s): E66.01 - Morbid (severe) obesity due to excess calories Plan: Start Wegovy. BMI goal is less than 30. (3) Iron deficiency anemia: Code(s): D50.9 - Iron deficiency anemia, unspecified Qualifiers: Iron deficiency anemia type: unspecified iron deficiency Qualified Code(s): D50.9 - Iron deficiency anemia, unspecified Plan: Follow-up with Hematology-Oncology. Continue ferrous sulfate and vitamin-C. (4) Essential hypertension: Code(s): I10 - Essential (primary) hypertension Plan: Continue hydrochlorothiazide. Blood pressure goal is equal or less than 130/80. Orders: Orders XR knee LT 2V Today M17.12 - Unilateral primary osteoarthritis, left knee XR knee RT 2V Today M25.561 - Pain in right knee Medications: New cholecalciferol (vitamin D3) 25 mcg PO DAILY 90 days 90 caps 1RF plecanatide (Trulance) 3 mg PO DAILY 90 days 90 tabs 1RF K59.04 - Chronic idiopathic constipation Shower Chair As directed 1 ea 0RF M54.50 - Low back pain, unspecified cane As directed 1 ea 0RF M54.50 - Low back pain, unspecified Refilled semaglutide (weight loss) (Wegovy) administer weeks 1 through 4 of therapy 0.25 mg (0.5 mL) subcut QWEEK 4 weeks 2 mL 0RF Discontinued tirzepatide (Mounjaro) Discontinued Reason: Patient Completed Course 2.5 mg (0.5 mL) subcut QWEEK 4 weeks 2 mL 0RF Coding Level of Care Code Est Pt Level 3 (73040) Est Pt Prev Care 40-64y(59770) Diagnoses Physical exam Z00.00 Super-super obese E66.01 Iron deficiency anemia, unspecified iron deficiency anemia type D50.9 Iron deficiency anemia type: unspecified iron deficiency Essential hypertension I10 Additional Codes JACQUELINE-7 Assessment Billing - JACQUELINE-7 Assessment Tool: JACQUELINE-7 Assessment 51235 ([id number]) Time Spent (min) 35
== END 2023-08-16 13:52 | disposition home or self-care (01) ==
LOC: HO.HMGH 13:14
PROVIDERS: PCP Internal Medicine; Visit Provider Internal Medicine
DX: Z00.00 Encounter for general adult medical examination without abnormal findings (principal); D50.9 Iron deficiency anemia, unspecified; I10 Essential (primary) hypertension; M25.561 Pain in right knee; M25.562 Pain in left knee; K21.9 Gastro-esophageal reflux disease without esophagitis
CPT/HCPCS: 99213; 99396

== ENCOUNTER 2023-09-14 13:00 | Outpatient (RCR) | payer OTHER, SELFPAY ==
[2023-08-16 11:15] VITALS: BP 138/70; PULSE 85; RESP 16; TEMP 36.6; O2SAT 98
[2023-08-16] MEDS: Iron Sucrose Complex 200 MG, Iron Sucrose Complex 100 MG in 0.9 % Sodium Chloride 250 ML 177 MG IV (11:29)
[2023-08-23 11:30] VITALS: BP 140/67; PULSE 84; RESP 16; TEMP 36.6; O2SAT 96
[2023-08-23] MEDS: Iron Sucrose Complex 200 MG, Iron Sucrose Complex 100 MG in 0.9 % Sodium Chloride 250 ML 177 MG IV (11:40)
[2023-08-23] MEDS: 0.9 % Sodium Chloride Flush 10 ML SYRINGE 5 ML IVFLUSH (13:14)
[2023-08-31 12:52] VITALS: BP 146/68; PULSE 71; RESP 18; TEMP 36.7; O2SAT 96
[2023-08-31] MEDS: Iron Sucrose Complex 200 MG, Iron Sucrose Complex 100 MG in 0.9 % Sodium Chloride 250 ML 177 MG IV (13:10)
[2023-09-06 12:42] VITALS: BP 129/70; PULSE 68; RESP 20; TEMP 36.5; O2SAT 97
[2023-09-06] MEDS: Iron Sucrose Complex 200 MG, Iron Sucrose Complex 100 MG in 0.9 % Sodium Chloride 250 ML 177 MG IV (13:09)
[2023-09-06] MEDS: 0.9 % Sodium Chloride Flush 10 ML SYRINGE 5 ML IVFLUSH (14:39)
[2023-09-14 12:54] VITALS: BP 133/69; PULSE 73; RESP 18; TEMP 36.6; O2SAT 96
[2023-09-14] MEDS: Iron Sucrose Complex 200 MG, Iron Sucrose Complex 100 MG in 0.9 % Sodium Chloride 250 ML 177 MG IV (13:08)
== END 2023-09-14 14:42 | disposition home or self-care (01) ==
LOC: HO.INF 13:00
PROVIDERS: Visit Provider Internal Medicine
DX: D50.9 Iron deficiency anemia, unspecified (principal)
CPT/HCPCS: 96365; 96366; 96374; J1756

== ENCOUNTER 2023-10-27 18:39 | Emergency (ER) | payer OTHER, SELFPAY ==
--- NOTE | ~2023-10-27 | CT_ITS ---
EXAMINATION: CT ABDOMEN AND PELVIS WITHOUT CONTRAST CLINICAL INFORMATION: Left flank pain. Hematuria. COMPARISON: None available. TECHNIQUE: Multidetector volumetric imaging was performed from the superior aspect of the liver through the pubic symphysis. Sagittal and coronal reformatted images were obtained on the technologist's workstation. This CT examination was performed using dose optimization techniques as appropriate, variously including the following: *Automated exposure control *Adjustment of mA and/or kV according to patient size (this includes techniques or standardized protocols for targeted exams where dose is matched to indication/reason for exam; i.e. extremities or head) *Use of iterative reconstruction technique DLP: 1590 mGy-cm FINDINGS: LUNG BASES: The lung bases appear clear, with no evidence of inflammation or nodules. Upper normal in size to mildly enlarged. No pericardial effusion. LIVER, GALLBLADDER, AND BILIARY TREE: Subcentimeter benign, coarse segment 5 calcification (image 34, series 3). The liver otherwise appears unremarkable in size, shape, and attenuation. No focal hepatic lesion or biliary ductal dilatation is appreciated on this noncontrast study. Unremarkable appearance of the gallbladder. PANCREAS: Unremarkable SPLEEN: Unremarkable ADRENAL GLANDS: Unremarkable KIDNEYS AND URETERS: Approximately 0.7 cm distal left ureteral stone (image 73, series 3), with mild fullness of the left renal collecting system and ureter. No gross hydronephrosis. Multiple, approximately 1 cm or less, bilateral, nonobstructing renal collecting system stones, left greater than right. The kidneys appear unremarkable in size, shape, and attenuation. Bilateral perinephric stranding, nonspecific. BLADDER: Unremarkable GASTROINTESTINAL TRACT: Moderate to large hiatus hernia. The small and large bowel appear unremarkable. ABDOMINAL WALL: Approximately 3.5 cm umbilical hernia containing only fat. LYMPH NODES: No evidence of adenopathy by size criteria. VASCULAR: Unremarkable PELVIC VISCERA: Mildly enlarged prostate. OSSEOUS STRUCTURES: Mild degenerative changes of the lumbar spine and hips. CT/CT abdomen pelvis wo IV con IMPRESSION: Approximately 0.7 cm distal left ureteral stone (image 73, series 3), with mild fullness of the left renal collecting system and ureter. No gross hydronephrosis. Multiple, approximately 1 cm or less, bilateral, nonobstructing renal collecting system stones, left greater than right. Moderate to large hiatus hernia. Multiple additional findings, as above. Electronically signed by: Ten Brown MD 10/27/2023 10:56 PM EDT RP
--- NOTE | 2023-10-27 18:42 | ECG_ITS ---
Test Reason : CHEST PAINS Blood Pressure : / mmHG Vent. Rate : 076 BPM Atrial Rate : 076 BPM P-R Int : 152 ms QRS Dur : 098 ms QT Int : 398 ms P-R-T Axes : 023 008 029 degrees QTc Int : 447 ms Normal sinus rhythm Normal ECG When compared with ECG of 26-JAN-2022 08:57, Sinus rhythm has replaced Atrial flutter Nonspecific T wave abnormality, improved in Inferior leads T wave inversion less evident in Anterolateral leads QT has lengthened Referred By: Annie Silva Electronically Signed By:SIENNA JOYNER
[2023-10-27 18:58] LABS: MANUAL DIFF FLAG NO
[2023-10-27 19:03] VITALS: BP 166/84; PULSE 78; RESP 18; TEMP 36.6; O2SAT 97; BMI 60.5
[2023-10-27 19:03] LABS: Basophils Percent Auto 0.6 % (0-2); Eosinophils Absolute Auto 0.1 X10*3/uL (0.0-0.4); Hematocrit 32.6 % (42.0-52.0); Hemoglobin 10.4 g/dl (14.0-18.0); Imm Gran Abs Auto 0.02 X10*3/uL (0.00-0.03); Imm Gran Pct Auto 0.3 % (0.0-0.4); Lymphocytes Absolute Auto 0.7 X10*3/uL (1.2-4.9); Lymphocytes Percent Auto 10.5 % (20-40); Mean Corpuscular HGB Conc 31.9 g/dl (31.0-36.0); Mean Corpuscular Hemoglobin 27.6 pg (27.0-33.0); Mean Corpuscular Volume 86.5 fL (80.0-98.0); Mean Platelet Volume 9.9 fL (9.4-12.4); Monocytes Absolute Auto 0.5 X10*3/uL (0.1-1.2); Monocytes Percent Auto 7.8 % (2-11); Neutrophils Absolute Auto 5.4 x10*3/uL (2.0-8.3); Neutrophils Percent Auto 79.8 % (45-73); Platelet Count 349 X10*3/uL (160-400); Red Blood Count 3.77 X10*6/uL (4.60-5.80); Red Cell Distribution Width 14.8 % (11.0-16.0); White Blood Count 6.8 X10*3/uL (4.8-10.8)
--- NOTE | 2023-10-27 19:03 | ED.GENADULT ---
HPI - General Adult General Chief complaint: Chest Pain Stated complaint: pain through arm, back, and hip w/ chest pressure Time Seen by Provider: 10/27/23 21:38 Source: patient, RN notes reviewed and old records reviewed Mode of arrival: ambulatory Limitations: no limitations History of Present Illness ED Provider: Clarissa HPI narrative: 58-year-old male with past medical history significant for GERD, hypertension, arthritis presents for evaluation of left arm pain, chest pain and left flank pain Patient reports that on Wednesday he started with some left arm pain that began radiating to his left chest and left upper back Over last 2 days the pain has now radiated to his left flank and down to his left lower abdomen He denies any difficulty urinating, blood in the urine He denies any shortness of breath, palpitations. He reports that lying on his right side causes pain in his left back He denies any trauma, falls No other complaints or concerns at this time Related Data Home Medications ?Medication ?Instructions ?Recorded ?Confirmed [id number]-ksi-VW 0.4 mg-calcium 162 1 tab PO 2XW 01/23/22 10/25/23 mg-iron 18 ql-yqasluc-cqxwrj tablet Previous Rx's ?Medication ?Instructions ?Recorded hydrochlorothiazide 25 mg tablet 25 mg PO DAILY 90 days #90 tabs 03/03/23 lidocaine 5 % topical patch 1 patch topical DAILY 30 days #30 05/25/23 ea sulindac 200 mg tablet 200 mg PO BID 90 days #180 tabs 06/30/23 ascorbic acid (vitamin C) 500 mg 500 mg PO DAILY #90 tabs 07/27/23 tablet (Vitamin C) ferrous sulfate 325 mg (65 mg 325 mg PO BID #60 tabs 07/27/23 iron) tablet (iron) omeprazole 20 mg capsule,delayed 20 mg PO DAILY@0630 90 days #90 08/06/23 release caps cholecalciferol (vitamin D3) 25 25 mcg PO DAILY 90 days #90 caps 08/16/23 mcg (1,000 unit) capsule docusate calcium 240 mg capsule 240 mg PO BEDTIME 90 days #90 caps 08/16/23 plecanatide 3 mg tablet (Trulance) 3 mg PO DAILY 90 days #90 tabs 08/16/23 semaglutide (weight loss) 0.25 0.25 mg (0.5 mL) subcut QWEEK 4 08/16/23 mg/0.5 mL subcutaneous pen weeks #2 mL injector (Jailyn) cane #1 ea 09/15/23 Shower Chair #1 ea 09/16/23 Heavy duty cane #1 ea 09/20/23 diclofenac sodium 1 % topical gel 2 g topical QID 30 days #100 grams 10/23/23 cefuroxime axetil 250 mg tablet 250 mg PO Q12H #14 tabs 10/27/23 Allergies Allergy/AdvReac Type Severity Reaction Status Date / Time Penicillins [PENICILLINS] Allergy Intermediate ITCHING Verified 10/27/23 19:06 SEAFOOD Allergy Intermediate ITCHING/THROAT Uncoded 10/27/23 19:06 SWELLING shellfish Allergy Intermediate rash Uncoded 10/27/23 19:06 Review of Systems Constitutional: Constitutional: Denies body ache(s), Denies chills and Denies headache(s) ENT: Denies dysphagia and Denies headache(s) Cardiovascular: Cardiovascular: Reports chest pain and Denies dyspnea Respiratory: Respiratory: Denies cough and Denies dyspnea Gastrointestinal: Gastrointestinal: Reports abdominal pain and Denies dysphagia Genitourinary: Genitourinary: Denies hematuria, Denies genital pain, Denies dysuria and Reports flank pain Musculoskeletal: Musculoskeletal: Reports back pain Neurologic: Denies headache(s) [facility] Past Medical History Medical History (Updated 10/27/23 @ 23:12 by Bonilla Romo) Microcytic anemia Anemia Atrial flutter Hypoparathyroidism after procedure Left leg pain Encounter for physical examination Super-super obese Renal calculi Iron deficiency anemia Surgical History History of parathyroid surgery Family History Family History Mother Hypertension Father Colon cancer, Onset Age: 82 Stroke Social History Social History Household Members: Spouse Housing: House Do you presently have visiting nurse or other home services: No Alcohol intake: former Patient Tobacco Use Status: Former Tobacco user Tobacco use type: Cigarette Smoked in Last 30 Days: No e-Cigarette/Vaping Use: Never Used Second Hand Smoke Exposure: No Use of substances other than those prescribed or required for medical reasons: No Advance Directives: Yes Advance Directives on File: Yes Advance Directives Date on File: 01/28/22 Do you have a plan to hurt others: No Plan service: No Current occupational status: unemployed Cognitive needs: Yes (cane) Hearing needs: No Vision needs: Yes (glasses) Physical Exam ED Vital Signs: Vital Signs - 24 hr 10/27/23 19:03 10/27/23 21:54 Temperature 97.9 F 97.7 F Pulse Rate 78 69 Respiratory Rate 18 12 Blood Pressure 166/84 H 137/68 Pulse Oximetry 97 97 Oxygen Delivery Method Room Air Room Air BMI result Body Mass Index 60.5 Const General: healthy appearing, comfortable, no acute distress, alert and awake Nutritional Appearance: well nourished Orientation/consciousness: patient oriented x3 HENMT Head: Yes normocephalic and Yes atraumatic Eyes Eyelids: Yes eyelids normal Conjunctivae: conjunctivae normal Sclerae: sclerae normal Corneas: corneas normal Pupils: Equal, round and reactive pupils present EOM: EOMs intact bilaterally Neck Neck: Yes full ROM Chest Other: No tenderness to palpation of the anterior chest wall Chest palpation & inspection: no crepitus Resp Effort & Inspection: normal respiratory effort, able to speak in complete sentences and not labored GI Inspection: No distended Palpation (GI): Soft to palpation, not firm, Tenderness to palpation present (GI) in the LLQ and in the LUQ, no guarding and not rigid Back/Spine/Pelvis Other: Patient has tenderness to the left thoracic paraspinous muscle. No palpable abnormalities. No vertebral tenderness, no step-offs or deformities. Skin General skin exam: elasticity normal Neuro General: patient oriented x3 Cranial nerves: Yes Equal, round and reactive pupils present and Yes Bilaterally intact EOM present Cognition (Neuro): normal cognition Extrem Other: Moving all extremities well without any obvious deformities Course Course Course Narrative: This is an RME done by MAHIN Silva: Additional HPI, ROS, PE not included below will be deferred to primary provider. 58 year old male presents w/ left arm pain w/. radiation into chest and back X few days 7-10/08. Some a/c sob. Not on blood thinners Reevaluation(s) Reevaluation #1: Patient does have evidence of a UTI on his urinalysis with over 50 white cells. He does have a 7 mm obstructing kidney stone. However he has no leukocytosis, he is afebrile, normotensive and he is not tachycardic. There was no evidence of systemic infection. The patient is stable for discharge, we will treat his UTI with cefuroxime. Return precautions were given Time: 23:15 Medical Decision Making Medical Decision Making [facility] Narrative: 58-year-old male presents for evaluation of multiple complaints including left arm pain radiating to his chest, back and left lower abdomen. He has several risk factors for ACS, so a cardiac workup was ordered which included an EKG, labs with a troponin. His troponin was negative despite 2 days of chest pain with a nonischemic EKG, this rules out ACS. The patient does have musculoskeletal/reproducible left upper back pain. However he does complain of pain radiating to his left lower abdomen and some hematuria on his UA. Plan for CT scan of the abdomen pelvis. Differential Diagnosis Differential Diagnoses: The differential diagnosis associated with the presentation includes Flank pain Obstructive uropathy Muscle strain ACS Chest wall pain Anxiety Lab Data [facility] Lab Attestation statement: I reviewed the patient's lab results. No leukocytosis. The patient has a stable normocytic anemia. No left shift patient's chemistry significant for a chloride just above normal, a BUN just above normal which is consistent with his baseline. His creatinine is within normal limits. Troponin undetectable, LFTs within normal limits 10/27/23 18:52 10/27/23 18:52 Labs: Lab Results 10/27/23 10/27/23 10/27/23 Range/Units 18:51 18:52 21:51 WBC 6.8 (4.8-10.8) X10*3/uL RBC 3.77 L (4.60-5.80) X10*6/uL Hgb 10.4 L (14.0-18.0) g/dl Hct 32.6 L (42.0-52.0) % MCV 86.5 (80.0-98.0) fL MCH 27.6 (27.0-33.0) pg MCHC 31.9 (31.0-36.0) g/dl RDW 14.8 (11.0-16.0) % Plt Count 349 D (160-400) X10*3/uL MPV 9.9 (9.4-12.4) fL Immature Gran % (Auto) 0.3 (0.0-0.4) % Neut % (Auto) 79.8 H (45-73) % Lymph % (Auto) 10.5 L (20-40) % [place] % (Auto) 7.8 (2-11) % Eos % (Auto) 1.0 (0-4) % Baso % (Auto) 0.6 (0-2) % Lymph # (Auto) 0.7 L (1.2-4.9) X10*3/uL [place] # (Auto) 0.5 (0.1-1.2) X10*3/uL Eos # (Auto) 0.1 (0.0-0.4) X10*3/uL Baso # (Auto) 0.0 (0.0-0.2) X10*3/uL Abs Immat Gran (auto) 0.02 (0.00-0.03) X10*3/uL Absolute Neuts (auto) 5.4 (2.0-8.3) x10*3/uL Absolute Nucleated RBC 0.000 (0.0-0.012) X10*3/uL Nucleated RBC % (auto) 0.0 (0.0-0.2) /100WBC Sodium 141 (135-145) mmol/L Potassium 3.4 (3.3-5.1) mmol/L Chloride 109 H (96-108) mmol/L Carbon Dioxide 24 (22-29) mmol/L Anion Gap 11 L (12-20) BUN 18 H (9-16) mg/dL Creatinine 0.90 (0.5-1.4) mg/dL Estim Creat Clear Calc 133.2 Estimated GFR > 60 Random Glucose 109 (60-115) mg/dL Calcium 9.1 (8.4-10.2) mg/dL Magnesium 2.0 (1.6-2.6) mg/dL Total Bilirubin 0.2 (0.0-1.0) mg/dL AST 10 (5-37) U/L ALT 9 (0-40) U/L Alkaline Phosphatase 78 (39-117) U/L Troponin I High Sens < 2.7 D (<3.5-35.0) ng/L Total Protein 6.8 (6.5-8.0) g/dL Albumin 4.1 (3.5-5.0) g/dL Urine Color Yellow Urine Appearance Clear Urine pH 5.5 (5.0-9.0) Ur Specific [place] >= 1.030 H (1.005-1.025) Urine Protein Trace (Neg-Trace) mg/dL Urine Glucose (UA) Negative (Negative) mg/dL Urine Ketones Trace (Negative) mg/dL Urine Blood Small (1+) H (Negative) Urine Nitrite Negative (Negative) Ur Leukocyte Esterase Moderate (2+) H (Negative) Urine RBC >20 H (0-2) /HPF Urine WBC >50 H (0-5) /HPF Ur Squamous Epith Cells 0-2 (0-2) /HPF Urine Bacteria None Seen (None Seen) Hyaline Casts 0-2 (0-2) /LPF Independent Interpretation I performed an independent interpretation of an: EKG (Normal sinus rhythm with a rate of 76 beats minute. The patient does have T-wave inversions in the anterior lateral leads which are improved when compared to December of 2021.) Radiology Impression Discussion of test interpretation with radiology: I have reviewed the radiologist's reading. Radiologist Impression: CT/CT abdomen pelvis wo IV con IMPRESSION: Approximately 0.7 cm distal left ureteral stone (image 73, series 3), with mild fullness of the left renal collecting system and ureter. No gross hydronephrosis. Multiple, approximately 1 cm or less, bilateral, nonobstructing renal collecting system stones, left greater than right. Moderate to large hiatus hernia. Multiple additional findings, as above. Electronically signed by: Ten Brown MD 10/27/2023 10:56 PM EDT Discharge Plan Discharge Clinical Impression: Chest pain, Acute unilateral obstructive uropathy, Acute UTI Patient Disposition: Home, Self-Care Instructions: Chest Pain (ED), Urinary Tract Infection in Men (ED), Ureteral Stones (ED) Additional Instructions: Your cardiac workup was reassuring. This includes your blood work and your EKG Your CT scan did show a 7 mm obstructing kidney stone that is just next to your bladder almost near the exit You may use ibuprofen or Tylenol for any pain It is important that if you have any new or worsening symptoms, especially a fever or severe pain or you are unable to take your antibiotics return to emergency department I think you also have some muscle strain contributing to your left upper back pain. You may use cyclobenzaprine as needed for this This may make you drowsy, do not drink alcohol or drive after taking it Prescriptions: New cefuroxime axetil 250 mg tablet 250 mg PO Q12H Qty: 14 0RF No Action hydrochlorothiazide 25 mg tablet 25 mg PO DAILY 90 Days Qty: 90 3RF lidocaine 5 % adhesive patch,medicated 1 patch topical DAILY 30 Days Qty: 30 11RF Rx Instructions: leave on most painful area for up to 12 hrs sulindac 200 mg tablet 200 mg PO BID 90 Days Qty: 180 1RF omeprazole 20 mg capsule,delayed release(DR/EC) 20 mg PO DAILY@0630 90 Days Qty: 90 1RF docusate calcium 240 mg capsule 240 mg PO BEDTIME 90 Days Qty: 90 1RF (DME) cane Device See Rx Instructions .Route Qty: 1 0RF Rx Instructions: As directed (DME) Shower Chair Misc See Rx Instructions .Route Qty: 1 0RF Rx Instructions: As directed heavy duty shower chair (DME) Heavy duty cane See Rx Instructions .Route .MEDSUPPLY Qty: 1 0RF Rx Instructions: As directed diclofenac sodium 1 % gel 2 g topical QID 30 Days Qty: 100 1RF Rx Instructions: apply to single elbow, wrist or hand; for hand includes palm/fingers/back of hand ferrous sulfate [iron] 325 mg (65 mg iron) Tablet 325 mg PO BID Qty: 60 1RF ascorbic acid (vitamin C) [Vitamin C] 500 mg Tablet 500 mg PO DAILY Qty: 90 2RF vr-aku-UQ-Yv-Og-rswfoek-lutein 0.4-162-18 mg Tablet 1 tab PO 2XW Wegovy 0.25 mg/0.5 mL pen injector 0.25 mg subcut QWEEK 28 Days Qty: 2 0RF Rx Instructions: administer weeks 1 through 4 of therapy cholecalciferol (vitamin D3) 25 mcg (1,000 unit) capsule 25 mcg PO DAILY 90 Days Qty: 90 1RF Trulance 3 mg tablet 3 mg PO DAILY 90 Days Qty: 90 1RF Print Language: Slovak
[2023-10-27 19:17] LABS: Alanine Aminotransferase 9 U/L (0-40); Albumin Level 4.1 g/dL (3.5-5.0); Alkaline Phosphatase 78 U/L (39-117); Anion Gap 11 (12-20); Aspartate Amino Transferase 10 U/L (5-37); Bilirubin Total 0.2 mg/dL (0.0-1.0); Blood Urea Nitrogen 18 mg/dL (9-16); Calcium 9.1 mg/dL (8.4-10.2); Carbon Dioxide 24 mmol/L (22-29); Chloride 109 mmol/L (96-108); Creatinine Clr Calc Pharmacy 133.2; Estimated Glomerular Filt Rate > 60; Glucose Random 109 mg/dL (60-115); Potassium 3.4 mmol/L (3.3-5.1); Sodium 141 mmol/L (135-145); Total Protein 6.8 g/dL (6.5-8.0)
[2023-10-27 19:27] LABS: Troponin-I High Sensitivity < 2.7 ng/L (<3.5-35.0)
[2023-10-27 21:54] VITALS: BP 137/68; PULSE 69; RESP 12; TEMP 36.5; O2SAT 97
[2023-10-27 22:06] LABS: Appearance Urine Clear; Color Urine Yellow; Glucose Urine UA Negative (Negative); Leukocyte Esterase Urine Moderate (2+) (Negative); Nitrite Urine Negative (Negative); PH 5.5 (5.0-9.0); Specific Gravity - Urine >= 1.030 (1.005-1.025); UMIC TRIGGER UACC YES; Urine Blood Small (1+) (Negative); Urine Ketones Trace mg/dL (Negative); Urine Protein Trace mg/dL (Neg-Trace)
[2023-10-27 22:11] LABS: Bacteria Urine None Seen (None Seen); Hyaline Casts Urine 0-2 /LPF (0-2); RBC Urine >20 /HPF (0-2); Squamous Epithelial Cell Urine 0-2 /HPF (0-2); UACC Culture Trigger YES; WBC Urine >50 /HPF (0-5)
[2023-10-27] MEDS: cefuroxime axetiL 500 MG TABLET PO (23:30)
--- NOTE | 2023-10-27 23:34 | PC.NURSE ---
Pt medicated per apr. Plan of care ongoing.
[2023-10-27 23:36] VITALS: BP 135/70; PULSE 70; RESP 12; TEMP 36.6; O2SAT 98
== END 2023-10-27 23:39 | disposition home or self-care (01) ==
PROVIDERS: Physician Assistant; Emergency Provider Emergency Medicine; PCP Internal Medicine
DX: R07.9 Chest pain, unspecified (principal); N20.1 Calculus of ureter; N39.0 Urinary tract infection, site not specified
CPT/HCPCS: 36415; 74176; 80053; 81001; 81003; 83735; 84484; 85025; 87086; 93005; 99284; 99285

== ENCOUNTER 2023-11-02 09:33 | Outpatient (AMB) | payer OTHER, SELFPAY ==
[2023-11-02 09:41] VITALS: BP 158/82; PULSE 86; O2SAT 98; BMI 60.4
--- NOTE | 2023-11-02 09:41 | A.OFFPC_ITS ---
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: No Accompanied by: Self / Same As Patient Allergies Penicillins [PENICILLINS] Allergy (Intermediate, Verified 11/02/23 09:42) ITCHING SEAFOOD Allergy (Intermediate, Uncoded 11/02/23 09:42) ITCHING/THROAT SWELLING shellfish Allergy (Intermediate, Uncoded 11/02/23 09:42) rash Tobacco use date assessed: 11/02/23 Dental Screening Dental Screen Date: 11/02/23 Did you have a dental visit in the last 12 months?: No Did you have a dental problem in the last 6 months where you did not have access to dental care?: No Was dental information given to patient?: No HPI HPI Comments History of Present Illness Details 58 y/o male patient who presents to the clinic today for EDF. Pt was admitted at [facility] on 10/26 and discharged home the same for multiple complains. Pt presented to the ED for c/o left shoulder pain that does not respond to Pain medications. He previously had left Elbow fracture with fixation surgery, and believes this must be the cause of the pain. Describes the pain as sharp radiating to his fingers and left Back. Pt was also found to have Left Kidney stone plus UTI. He was treated with Abx for UTI. Denies any urinary symptoms today. Pt wondering if he is going to need routine Kidney check-up. H/o HTN and currently on HCTZ 25 mg. Today BP elevated but asymptomatic. Pt believes his BP is elevated due to pain current he is having. Reports BP's at home well controlled. [facility] Medical History (Updated 10/28/23 @ 00:01 by Kenton Mendenhall) Microcytic anemia Anemia Atrial flutter Hypoparathyroidism after procedure Left leg pain Encounter for physical examination Super-super obese Renal calculi Iron deficiency anemia Surgical History History of parathyroid surgery Family History Mother Hypertension Father Colon cancer, Onset Age: 82 Stroke Social History Household Members: Spouse Housing: House Do you presently have visiting nurse or other home services: No Alcohol intake: former Patient Tobacco Use Status: Former Tobacco user Tobacco use type: Cigarette e-Cigarette/Vaping Use: Never Used Second Hand Smoke Exposure: No Advance Directives Date on File: 01/28/22 service: No Current occupational status: unemployed Cognitive needs: Yes (cane) Hearing needs: No Vision needs: Yes (glasses) Questionnaire PHQ-9 Over the last 2 weeks, how often have you been bothered by any of the following problems? 1. Little interest or pleasure in doing things: not at all 2. Feeling down, depressed, or hopeless: not at all 3. Trouble falling or staying asleep, or sleeping too much: not at all 4. Feeling tired or having little energy: not at all 5. Poor appetite or overeating: not at all 6. Feeling bad about yourself - or that you are a failure or have let yourself or your family down: not at all 7. Trouble concentrating on things, such as reading the newspaper or watching television: not at all 8. Moving or speaking so slowly that other people could have noticed. Or the opposite - being so fidgety or restless that you have been moving around a lot more than usual: not at all 9. Thoughts that you would be better off or of hurting yourself in some way: not at all Total score: 0 Depression Screening Interpretation: Negative Depression Screening Done: Yes 26848 - PHQ-9 Billing: Yes Source: Developed by Drs. Alton Preston, Alesia Rdz, Gerson Solorzano and colleagues, with an educational rena from [employer]. Thrive Questionnaire Date Thrive assessed: 11/02/23 I am a: Patient What is your living situation today?: I have a steady place to live Within the past 12 months, did the food you bought not last and you didn't have the money to get more?: Never true Within the past 12 months, did you worry whether your food would run out before you got money to buy more?: Never true Do you have trouble paying for medicines?: No Do you have trouble getting transportation to medical appointments?: No Do you have trouble paying your heating and electricity bill?: No Do you have trouble taking care of your child, family member or friend?: No Do you have trouble with day-to-day activities such as bathing, preparing meals, shopping, managing finances, etc.?: No Are you currently unemployed and looking for a job?: No Are you interested in more education?: No Please select the resources that you would like help with: None Currently or been in a relationship where the following occur: No concerns reported THRIVE Score: 0 AUDIT C Alcohol Use Questionnaire (AUDIT-C) 1. How often do you have a drink containing alcohol?: Never 3. How often do you have six or more drinks on one occasion?: Never Total Score: 0 Score Reviewed/Action Taken: No JACQUELINE-7 AMB Questionnaire JACQUELINE-7 Date JACQUELINE - 7 assessed: 11/02/23 Feeling nervous, anxious, or on edge: 0 = Not at all Not being able to stop or control worryin = Not at all Worrying too much about different things: 0 = Not at all Trouble relaxin = Not at all Being so restless that it is hard to sit still: 0 = Not at all Becoming easily annoyed or irritable: 0 = Not at all Feeling afraid as if something awful might happen: 0 = Not at all Total JACQUELINE-7 score (0-4 normal; 5-9 mild; 10-14 moderate; 15-21 severe): 0 Source: Developed by Drs. Alton Preston, Alesia Rdz, Gerson Solorzano and colleagues, with an educational rena from [employer]. JACQUELINE-7 Assessment Billing JACQUELINE-7 Assessment Tool: JACQUELINE-7 Assessment 72896 Review of Systems Const All systems reviewed & are unremarkable except as noted in HPI and below Physical exam (Primary Care) Vital Signs: Last Vital Signs Pulse 86 11/02/23 09:41 BP 158/82 H 11/02/23 09:41 Pulse Ox 98 11/02/23 09:41 Oxygen Delivery Method Room Air 11/02/23 09:41 BMI result Body Mass Index 60.4 Tobacco/Smoking Status: Tobacco use Status Tobacco use date assessed 11/02/23 11/02/23 09:45 Patient Tobacco Use Status Former Tobacco user 11/02/23 09:45 Tobacco use type Cigarette 11/02/23 09:45 e-Cigarette/Vaping Use Never Used 11/02/23 09:45 PHQ-9: PHQ-9 Score PHQ-9: Total score 0 11/02/23 09:48 Depression Screening Interpretation: Negative Thrive Assessment: Date of Thrive Assessment Date Thrive assessed 11/02/23 11/02/23 09:45 Currently or been in a relationship where the following occur: No concerns reported Const General: cooperative and no acute distress Nutritional Appearance: obese Orientation/consciousness: patient oriented x3 General: Yes no CVA tenderness Back/Spine/Pelvis Back: no CVA tenderness Skin General skin exam: no rashes or lesions noted Neuro General: patient oriented x3, gait normal and moves all extremities Extrem Right upper extremity: normal to inspection, full ROM and shoulder/upper arm Details: normal to inspection Left upper extremity: normal to inspection, full ROM, shoulder/upper arm Details: inspection abnormal; no tenderness, no swelling and no crepitus and elbow/forearm (Well healed old scar left elbow) Psych Speech and movement: Normal speech and movement present Assessment and Plan Assessment & Plan (1) Essential hypertension: Code(s): I10 - Essential (primary) hypertension Plan: Re-checked BP before leaving the clinic, still elevated. Will have Pt schedule Appt with Nurse Navigator in 2 weeks. Pt to monitor BPs at home and keep a Log Advised weight loss and DASH diet. Continue on HCTZ no changes. F/U with PCP. (2) Left arm pain: Code(s): M79.602 - Pain in left arm Plan: Ordered PT Ordered NSAIDs and Acetaminophen for pain relief Use Lidocaine patch as Directed. (3) Kidney stone on left side: Code(s): N20.0 - Calculus of kidney Plan: Resolved for now Informed Pt that usually the stones with pass, no further imaging needed at this time. Educated on signs and symptoms to report to PCP Hydrate well with plenty of water to flush kidneys. Medications: New ibuprofen 600 mg PO Q6H PRN 20 tabs 0RF pain M79.602 - Pain in left arm acetaminophen 1,000 mg (2 x 500 mg) PO Q6H PRN 30 caps 0RF pain M79.602 - Pain in left arm Coding Level of Care Code Est Pt Level 4 (93254) Diagnoses Essential hypertension I10 Left arm pain M79.602 Kidney stone on left side N20.0 Additional Codes JACQUELINE-7 Assessment Billing - JACQUELINE-7 Assessment Tool: JACQUELINE-7 Assessment 29139 ([id number]) Time Spent (min) 20 Comment Spent on reviewing hospital notes and Patient education
[2023-11-02 10:17] VITALS: BP 146/80
== END 2023-11-02 10:25 | disposition home or self-care (01) ==
PROVIDERS: PCP Internal Medicine; Visit Provider Nurse Practitioner Family
DX: I10 Essential (primary) hypertension (principal); M79.602 Pain in left arm; N20.0 Calculus of kidney
CPT/HCPCS: 99214

== ENCOUNTER → 2023-11-18 13:48 | Outpatient (BNVA) | payer OTHER, SELFPAY | PROVIDERS: PCP Internal Medicine ==

== ENCOUNTER 2023-12-02 13:00 | Outpatient (RCR) | payer OTHER, SELFPAY ==
[2023-11-26 10:57] VITALS: BP 120/59
--- NOTE | 2023-11-26 14:02 | MHC.PT.EP ---
[facility] [place] Office [place] [facility] [place] [facility] [address] Joshua Barr [address] [phone] F: [phone] F: [phone] F: [phone] F: [phone] Physical Therapy Plan of Care Date of Evaluation: 11/26/23 Date of Surgery: N/A Diagnosis: Left upper arm pain Assessment: Pt is a 58yo male presenting to PT with left elbow, shoulder, upper back, and chest pain. Able to reproduce chest pain through assessment of upper back tissue extensibility, ruling out need for additional cardiac workup. Pt has reproduction of elbow/forearm pain through active elbow and wrist motion. 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 Barriers to PT include comorbidities, chronicity of his impairments, and multi-joint involvement. Pt is a good candidate for PT due to the modifiable nature of his impairments and motivation to improve. Pt will benefit from postural re-education, manual therapy for tissue extensibility, a progressive strengthening/stretching program, functional task training for self care activities, and strategies for pain management. Pt referred to OT for treatment of elbow pain. 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 Manual therapy to restore motion and function. Therapeutic exercise to improve strength and flexibility. Neuromuscular re-education for posture and balance. Therapeutic activities to return to functional activities of daily living. Electronically signed by: Anastasia Weston PT, DPT Please sign and return to therapist. Thank you for your referral.
--- NOTE | 2023-12-24 10:29 | MHC.PT.DC ---
[facility] [place] Office [place] Office [place] Office [address] Joshua Barr 140 [facility] [phone] F: [phone] F: [phone] F: [phone] F: [phone] Physical Therapy Discharge Report Diagnosis: Left upper arm pain Date of Surgery: N/A Date of Evaluation: 11/26/23 Date of Discharge: 12/24/23 Treatments to Date: 2 Cancellations to Date: 5 No Shows to Date: 0 Discharge Status: Improved Function Patient Elected to Stop Discharge Summary: The patient called to discharge himself saying he feels better and does not require any further PT services. He is discharged per his request. Electronically signed by: Anastasia Waldrop PT, DPT Please sign and return to therapist. Thank you for your referral.
== END 2023-12-24 10:29 | disposition home or self-care (01) ==
LOC: HO.PT 13:00
PROVIDERS: PCP Internal Medicine; Visit Provider Nurse Practitioner Family
DX: M79.602 Pain in left arm (principal)
CPT/HCPCS: 97110; 97140; 97163

== ENCOUNTER 2024-02-15 13:23 | Outpatient (AMB) | payer OTHER, SELFPAY ==
--- NOTE | 2024-02-15 13:26 | A.OFFPC_ITS ---
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 Accompanied by: Self / Same As Patient Allergies Penicillins [PENICILLINS] Allergy (Intermediate, Verified 02/15/24 13:48) ITCHING SEAFOOD Allergy (Intermediate, Uncoded 02/15/24 13:48) ITCHING/THROAT SWELLING shellfish Allergy (Intermediate, Uncoded 02/15/24 13:48) rash Medication List - Last Reconciled 02/15/24 by Carolin Whitney MD acetaminophen 1,000 mg (2 x 500 mg) PO Q6H PRN ascorbic acid (vitamin C) (Vitamin C) 500 mg PO DAILY blood pressure kit-extra large As directed cane As directed cholecalciferol (vitamin D3) 25 mcg PO DAILY 90 days diclofenac sodium 1% 2 grams topical QID 30 days docusate calcium 240 mg PO BEDTIME 90 days ferrous sulfate (iron) 325 mg PO BID [Heavy duty cane As directed] hydrochlorothiazide 25 mg PO DAILY 90 days ibuprofen 600 mg PO Q6H PRN lidocaine 5% 1 patch topical DAILY 30 days [id number]-ydz-QZ-Bn-Mp-gumtefy-lutein 0.4-162-18 mg 1 tab PO 2XW omeprazole 20 mg PO DAILY@0630 90 days plecanatide (Trulance) 3 mg PO DAILY 90 days semaglutide (weight loss) (Wegovy) 0.25 mg (0.5 mL) subcut QWEEK 4 weeks Shower Chair As directed heavy duty shower chair sulindac 200 mg PO BID 90 days Tobacco use date assessed: 11/02/23 Dental Screening Dental Screen Date: 11/02/23 HPI HPI Comments History of Present Illness Details The patient is a 59-year-old male presenting with concerns of persistent anemia and elevated blood pressure. The patient has been under the care of a slasher machine operator for anemia and received intravenous iron infusion. Despite these interventions, the patient reports ongoing challenges in managing the anemia. The patient is scheduled for a bone marrow examination on March 07. The patient also experiences hypertension, noted to be particularly high today. Historically, the patient's blood pressure has been well-controlled, with recent measurements at a medical facility recording systolic levels in the 130s. However, today it has risen unexpectedly. The patient reports adherence to diuretic therapy with hydrochlorothiazide. The patient has a complex medical history significant for obesity, with a noted increase in weight from 358 lbs in December to 364 lbs currently, resulting in a BMI rise from 59.7 to 60.7. The patient has not qualified for weight management treatments like Wegovy in the past. [facility] Medical History Microcytic anemia Anemia Atrial flutter Hypoparathyroidism after procedure Left leg pain Encounter for physical examination Super-super obese Renal calculi Iron deficiency anemia Surgical History History of parathyroid surgery Family History Mother Hypertension Father Colon cancer, Onset Age: 82 Stroke Social History Household Members: Spouse Housing: House Do you presently have visiting nurse or other home services: No Alcohol intake: former Patient Tobacco Use Status: Former Tobacco user Tobacco use type: Cigarette e-Cigarette/Vaping Use: Never Used Second Hand Smoke Exposure: No Advance Directives Date on File: 01/28/22 service: No Current occupational status: unemployed Cognitive needs: Yes (cane) Hearing needs: No Vision needs: Yes (glasses) Questionnaire Thrive Questionnaire Date Thrive assessed: 11/02/23 AUDIT C Alcohol Use Questionnaire (AUDIT-C) 1. How often do you have a drink containing alcohol?: Never Total Score: 0 JACQUELINE-7 AMB Questionnaire JACQUELINE-7 Date JACQUELINE - 7 assessed: 11/02/23 Source: Developed by Drs. Alton Preston, Alesia Rdz, Gerson Solorzano and colleagues, with an educational rena from [employer]. Review of Systems Const Details: - Musculoskeletal: Reports cramping in hands and left leg, with a noticeable loss of strength in the left leg. - Cardiovascular: Denies chest pain or shortness of breath. Physical exam (Primary Care) Vital Signs: Last Vital Signs BP 158/76 H 02/15/24 13:30 BMI result Body Mass Index 60.6 BMI Assessment/Plan discussion: High BMI High, discussed plan: lifestyle, weight reduction, dietary and physical activity Tobacco/Smoking Status: Tobacco use Status Tobacco use date assessed 11/02/23 02/15/24 13:30 Patient Tobacco Use Status Former Tobacco user 02/15/24 13:30 Tobacco use type Cigarette 02/15/24 13:30 e-Cigarette/Vaping Use Never Used 02/15/24 13:30 Thrive Assessment: Date of Thrive Assessment Date Thrive assessed 11/02/23 02/15/24 13:30 Const Other: General: No confusion Respiratory: Normal respiratory effort, clear to auscultation bilaterally Cardiovascular: No jugular venous distension, regular rate, regular rhythm, S1 normal heart sound present and S2 normal heart sound present Extremities: Full ROM, experiencing cramps in hands and left leg, slight loss of strength in left leg Office Procedures Flu Questionnaire Does the patient have a severe egg allergy?: No Immunizations Fluarix Triv [id number] (PF) 45 mcg (15 mcg x 3)/0.5 mL IM syringe Performing Provider: Carolin Whitney MD [facility] Documented (not given) by: JOVITA Echavarria on 02/15/24 13:35 Reason Not Given: Patient Refused Coding Level of Care Code Est Pt Level 4 (53573) Complex EM visit Add On G2211 Diagnoses BMI 60.0-69.9, adult Z68.44 Renal calculi N20.0 Lumbar pain M54.50 Iron deficiency anemia, unspecified iron deficiency anemia type D50.9 Iron deficiency anemia type: unspecified iron deficiency Time Spent (min) 22 Assessment & Plan Assessment & Plan (1) BMI 60.0-69.9, adult: Code(s): Z68.44 - Body mass index [BMI] 60.0-69.9, adult Category: Medical (2) Renal calculi: Code(s): N20.0 - Calculus of kidney Category: Medical (3) Lumbar pain: Code(s): M54.50 - Low back pain, unspecified Category: Medical (4) Iron deficiency anemia: Code(s): D50.9 - Iron deficiency anemia, unspecified Category: Medical Qualifiers: Iron deficiency anemia type: unspecified iron deficiency Qualified Code(s): D50.9 - Iron deficiency anemia, unspecified Plan - Recommended referral to urology for further management of current urological concerns. - Bone marrow biopsy scheduled to assess the underlying cause of persistent anemia. - Obtain updated laboratory tests to reassess anemia, cholesterol levels, and complete metabolic panel as indicated from past medical history. - Continued monitoring and support of blood pressure management with hydrochlorothiazide; follow-up checks for blood pressure recommended in three weeks. Patient was informed and verbally consented to the use of an ambient scribe for clinic note documentation during this visit. I discussed with the patient the importance of continued monitoring of blood pressure and follow-up assessments. The potential diagnosis of underlying conditions contributing to anemia will be further evaluated with the scheduled bone marrow biopsy. The patient was informed about the options regarding iron supplementation and any adjustments that might arise based on future lab results. Follow-up instructions for blood pressure checks and preventive care measures for weight management were extensively reviewed with the patient. Orders: Orders Influenza [id number] Immunization Today Z23 - Encounter for immunization Thyroid Stimulating Hormone Today Z68.44 - Body mass index [BMI] 60.0-69.9, adult Lipid Panel Today E78.5 - Hyperlipidemia, unspecified, Z68.44 - Body mass index [BMI] 60.0-69.9, adult Comprehensive [place]. Panel Fast Today Z68.44 - Body mass index [BMI] 60.0-69.9, adult Referrals Urology Referral N20.0 - Calculus of kidney Medications: New tirzepatide (weight loss) (Zepbound) for 4 weeks 2.5 mg (0.5 mL) subcut QWEEK 2 mL 0RF 4 weeks Z68.44 - Body mass index [BMI] 60.0-69.9, adult Discontinued semaglutide (weight loss) (Wegovy) administer weeks 1 through 4 of therapy Discontinued Reason: Patient Completed Course 0.25 mg (0.5 mL) subcut QWEEK 4 weeks 2 mL 0RF Patient Instructions: - Maintain adherence to current hypertension medication regimen. - Schedule and attend the bone marrow biopsy on March 07 for further anemia evaluation. - Monitor blood pressure regularly and follow up in three weeks. - Avoid known allergens including shellfish, penicillin, and certain NSAIDs. - Implement lifestyle modifications for weight management, including diet and exercise, under guidance. - Follow through with referrals to specialists as discussed.
[2024-02-15 13:30] VITALS: BP 158/76; BMI 60.6
== END 2024-02-15 13:59 | disposition home or self-care (01) ==
PROVIDERS: PCP Internal Medicine; Visit Provider Internal Medicine
DX: Z68.44 Body mass index [BMI] 60.0-69.9, adult (principal); N20.0 Calculus of kidney; M54.50 Low back pain, unspecified; D50.9 Iron deficiency anemia, unspecified; Z23 Encounter for immunization

== ENCOUNTER → 2024-02-15 13:23 | Outpatient (BNVA) | payer OTHER, SELFPAY | PROVIDERS: PCP Internal Medicine; Visit Provider Internal Medicine | DX: D50.9 Iron deficiency anemia, unspecified (principal); E66.9 Obesity, unspecified; N20.0 Calculus of kidney; M54.50 Low back pain, unspecified; E78.5 Hyperlipidemia, unspecified; Z68.44 Body mass index [BMI] 60.0-69.9, adult | CPT/HCPCS: 90471; 99212 ==

== ENCOUNTER 2024-02-28 13:45 | Outpatient (RCR) | payer OTHER, SELFPAY ==
[2024-02-08 12:46] VITALS: BP 136/76; PULSE 82; RESP 16; TEMP 36.1; O2SAT 97
[2024-02-08] MEDS: Iron Sucrose Complex 200 MG/10 ML VIAL IVPUSH (12:52)
--- NOTE | 2024-02-09 16:16 | PC.NURSE ---
02/09/2024 Telephone call. Spoke with the patient who stated that he has not started on semaglutide yet due to insurance issues. The patient was informed that if he started it would be necessary to hold it a week before the procedure. The appointment was made for 02/14. The patient stated that he has 2 other appointments on that day and can not come on that day. Called the radiology desk to inform them to please reschedule the biopsy.
[2024-02-15 14:22] VITALS: BP 134/71; PULSE 70; RESP 20; TEMP 36.7; O2SAT 96
[2024-02-15] MEDS: Iron Sucrose Complex 200 MG/10 ML VIAL IVPUSH (14:28)
[2024-02-22 12:29] VITALS: BP 144/79; PULSE 82; RESP 16; TEMP 36.6; O2SAT 96
[2024-02-22] MEDS: Iron Sucrose Complex 200 MG/10 ML VIAL IVPUSH (12:36)
[2024-02-28 13:33] VITALS: BP 142/70; PULSE 67; RESP 16; TEMP 36.5; O2SAT 97
[2024-02-28] MEDS: Iron Sucrose Complex 200 MG/10 ML VIAL IVPUSH (13:47)
[2024-02-28] MEDS: 0.9 % Sodium Chloride Flush 10 ML SYRINGE 5 ML IVFLUSH (13:53)
== END 2024-02-28 13:57 | disposition home or self-care (01) ==
LOC: HO.INF 13:45
PROVIDERS: Visit Provider Internal Medicine
DX: D50.9 Iron deficiency anemia, unspecified (principal)
CPT/HCPCS: 96374; J1756

== ENCOUNTER 2024-03-07 10:59 | Day surgery (SDC) | payer OTHER, SELFPAY ==
[2024-03-07] VITALS (12 sets, daily range): BP systolic 120–160; BP diastolic 58–102; PULSE 61–73; RESP 16–40; TEMP 36.3; O2SAT 93–98; BMI 59.9
--- NOTE | ~2024-03-07 | CT_ITS ---
Persistent anemia. PROCEDURES: 1. Limited preprocedure CT of the pelvis. Permanent images saved in PACS. 2. 11 g bone marrow core biopsy of the left posterior iliac spine 3. 11 g bone marrow aspirate of the left posterior iliac spine CLINICIANS: Bonilla Palacios PA-C MEDICATIONS: -Versed 1.5 mg, Fentanyl 75 mcg, and lidocaine 1% 10 mL SQ -Antibiotics: None -For additional details, please see nursing flowsheet. COMPLICATIONS: None ESTIMATED BLOOD LOSS: < 5 ml CONTRAST: None SPECIMENS: 11 g core placed in formalin. Bone marrow aspirate placed in EDTA and sodium heparin tubes MODERATE SEDATION TIME: 20 min PROCEDURE NOTE: The procedure, risks, benefits, and alternatives were carefully explained to the patient and written informed consent was obtained. The patient was placed prone on the CT table. A timeout was performed. A limited CT of the pelvis was performed to localize the posterior iliac spine and choose appropriate needle entry and trajectory. The patient was prepped and draped in usual sterile fashion. The skin, subcutaneous tissues, and periosteum were anesthetized with lidocaine. Under CT guidance, an 11-gauge bone marrow biopsy needle was advanced into the posterior iliac spine, with the tip positioned slightly cephalad. An 11-gauge core biopsy of the bone marrow was performed and was placed in formalin. Next, the 11-gauge bone marrow biopsy needle was then advanced into the posterior iliac spine, under CT guidance, with the tip positioned slightly caudal. A bone marrow aspiration was performed. The specimen was placed in the provided EDTA and sodium heparin tubes. The needle was removed. A dry dressing was applied and secured with Tegaderm. There were no immediate complications. The patient was stable after the procedure and was transferred to the post anesthesia care unit. The procedure was done under moderate sedation with a dedicated nurse for monitoring of vital signs. CT/CT biopsy asp core bone marrow Impression: CT-guided bone marrow biopsy and aspiration. This procedure was performed by Bonilla Palacios PA-C and supervised by Dr. Jerome. Electronically signed by: Evens Lucas MD 03/15/2024 05:26 PM [facility]
[2024-03-07 12:13] LABS: Baso%MD 0.8 %; Eos%MD 1.4 %; Hematocrit 39.1 % (42.0-52.0); Hemoglobin 12.4 g/dl (14.0-18.0); IG%MD 0.4 %; Lymph%MD 12.4 %; Mean Corpuscular HGB Conc 31.7 g/dl (31.0-36.0); Mean Corpuscular Volume 85.2 fL (80.0-98.0); Mean Platelet Volume 9.7 fL (9.4-12.4); Mono%MD 8.5 %; Neut%MD 76.5 %; Platelet Count 323 X10*3/uL (160-400); Red Blood Count 4.59 X10*6/uL (4.60-5.80); Red Cell Distribution Width 16.1 % (11.0-16.0); White Blood Count 4.9 X10*3/uL (4.8-10.8)
--- NOTE | 2024-03-07 13:06 | MHC.SHP ---
Pre-Procedural Eval Section A - 24 Hr Update-Section A only Date of Service: 03/07/24 Section B - Complete if H&P > 30 days Chief Complaint: asp. & biopsy bone marrow--persitent normocytytic Details of Present Illness: 59 y/o man with BOBBY. Hematology requests a bone marrow biopsy. Relevant Family History (Specify if Yes): No Relevant Social History: None Present Medications: see Short Stay Collaborative assessment Medical History: Significant History History of Previous Operations: Relevant previous surgery/procedure and date(s) Allergies: Allergies Allergy/AdvReac Type Severity Reaction Status Date / Time Penicillins [PENICILLINS] Allergy Intermediate ITCHING Verified 03/07/24 12:44 SEAFOOD Allergy Intermediate ITCHING/THROAT Uncoded 03/07/24 12:44 SWELLING shellfish Allergy Intermediate rash Uncoded 03/07/24 12:44 Review of Systems Sugical H&P ROS: Negative: Constitution, Cardiovascular and Respiratory Exam Surgical H&P Exam: Normal: Heart, Normal: Lungs, Normal: Skin and Normal: Neurological Plan 59 y/o man with BOBBY -Bone marrow biopsy Time Spent With Patient Time: Total time managing care of this patient today ____ minutes.
[2024-03-07 13:20] LABS: Atypical Lymph Absolute Manual 0.1 x10*3/uL; Atypical Lymphs Percent Manual 2 % (0-6); Band Neutrophils Percent 0 % (3-5); Basophils Percent Manual 1 % (0-2); Eosinophils Percent Manual 1 % (0-4); Lymphocytes Absolute Manual 0.6 X10*3/uL (1.2-4.9); Lymphocytes Percent Manual 12 % (20-40); Monocytes Absolute Manual 0.3 X10*3/uL (0.1-1.2); Monocytes Percent Manual 6 % (2-11); Neutrophils Absolute Manual 3.8 X10*3/uL (2.0-8.3); Neutrophils Percent Manual 78 % (45-73)
[2024-03-07 13:22] LABS: RBC Morphology NOTED
[2024-03-07 13:23] LABS: Hypochromasia 1+ (5-14) /OIF; Platelet Estimate NORMAL (NORMAL); Platelet Morphology Comment NORMAL
[2024-03-07] MEDS: fentaNYL citrate/PF 100 MCG/2 ML VIAL 50 MCG IVPUSH (13:32)
[2024-03-07] MEDS: fentaNYL citrate/PF 100 MCG/2 ML VIAL 25 MCG IVPUSH (13:37)
[2024-03-07] MEDS: Midazolam HCl 5 MG/ML VIAL 1 MG IVPUSH (13:39)
[2024-03-07] MEDS: Midazolam HCl 5 MG/ML VIAL IVPUSH (13:39)
[2024-03-07 14:20] LABS: Bone Marrow SEE SEPARATE REPORT
== END 2024-03-07 14:59 | disposition home or self-care (01) ==
PROVIDERS: Physician Assistant Surgical; Student in an Organized Health Care Education/Training Program; PCP Internal Medicine; Visit Provider Internal Medicine
PROC: (CPT 38221; principal; 2024-03-07 13:00)
DX: D64.9 Anemia, unspecified (principal); D50.9 Iron deficiency anemia, unspecified
CPT/HCPCS: 36415; 38222; 85007; 85027; 88184; 88185; 88237; 88264; 88305; 88311; 88313; 88341; 88342; 99152; J2003; J2250; J2310; J3010

== ENCOUNTER → 2024-03-07 12:49 | Outpatient (BNV) | payer OTHER, SELFPAY | PROVIDERS: PCP Internal Medicine; Visit Provider Physician Assistant Surgical | DX: D64.9 Anemia, unspecified (principal) | CPT/HCPCS: 38222; 77012 ==

== ENCOUNTER 2024-05-29 14:34 | Outpatient (AMB) | payer OTHER, SELFPAY ==
--- NOTE | 2024-05-29 14:48 | A.OFFVIS_ITS ---
Intake Visit Reasons: bilateral kidney stones Intake Note: New Patient presents for initial visit for bilateral kidney stones Urology Medications: none Blood Thinner: none Spot Cleaner Required: No Accompanied by: Self / Same As Patient Allergies Penicillins [PENICILLINS] Allergy (Intermediate, Verified 05/29/24 15:31) ITCHING SEAFOOD Allergy (Intermediate, Uncoded 05/29/24 15:31) ITCHING/THROAT SWELLING shellfish Allergy (Intermediate, Uncoded 05/29/24 15:31) rash Medication List - Last Reconciled 05/29/24 by FLETCHER Ortiz acetaminophen 1,000 mg (2 x 500 mg) PO Q6H PRN ascorbic acid (vitamin C) (Vitamin C) 500 mg PO DAILY blood pressure kit-extra large As directed cane As directed cholecalciferol (vitamin D3) 25 mcg PO DAILY 90 days diclofenac sodium 1% 2 grams topical QID 30 days ferrous sulfate (iron) 325 mg PO BID gabapentin 400 mg PO BEDTIME [Heavy duty cane As directed] hydrochlorothiazide 25 mg PO DAILY 90 days lidocaine 5% 1 patch topical DAILY 30 days magnesium oxide 400 mg PO BEDTIME 30 days do-hmo-QT-So-Xo-cxumxpd-lutein 0.4-162-18 mg 1 tab PO 2XW omeprazole 20 mg PO DAILY@0630 90 days plecanatide (Trulance) 3 mg PO DAILY 90 days Shower Chair As directed heavy duty shower chair sulindac 200 mg PO BID 90 days tirzepatide (weight loss) (Zepbound) 2.5 mg (0.5 mL) subcut QWEEK 90 days HPI Comments Details: Bogdan is a very pleasant 59-year-old male patient of Dr. Vallejo. He has a past medical history of microcytic anemia, atrial flutter, hypoparathyroidism, obesity, nephrolithiasis, and iron deficiency anemia. He presents to the office today as a new patient for nephrolithiasis. In discussion with the patient today he reports having seeked emergency room care last year for ongoing left- sided flank pain he had been experiencing. He brings with him today stones that he has voided. He reports shortly after his ER visit he urinated kidney stone on February 09 as well as February 21. He discusses his longstanding history of nephrolithiasis requiring ESWL in the past. He reports pain he had been experiencing has since subsided. When asked he reports to be drinking plenty of water daily. We discussed obtaining imaging for further assessment evaluation. In office urinalysis results reviewed with the patient today 3+ leukocytes negative nitrates. When asked he denies any UTI like symptoms. He denies urinary urgency, urinary frequency, incontinence, nocturia, hematuria, dysuria, foul smelling urine, changes to urinary stream, flank pain, fever, and or chills. He is happy with his current voiding parameters. We discussed potential causes of nephrolithiasis as well as further metabolic workup. All questions were answered. He otherwise offers no other issues or concerns at this time. CT 10/22: A proximally 7 mm distal left ureteral stone with mild fullness of the left renal collecting system and ureter. No gross hydronephrosis. Multiple, a proximally 1 cm less bilateral nonobstructing renal calculi left greater than right. Plan I plan to conduct a thorough evaluation of the patient's nephrolithiasis by ordering a new ultrasound and sending for stone composition analysis. I discussed the importance of hydration as a preventive measure. We discussed 24- hour urine collection may follow for further metabolic evaluation. Informed consent was obtained, and the patient agreed with the outlined management approach. Patient was informed and verbally consented to the use of an ambient scribe for clinic note documentation during this visit. [facility] Medical History Microcytic anemia Anemia Atrial flutter Hypoparathyroidism after procedure Left leg pain Encounter for physical examination Super-super obese Renal calculi Iron deficiency anemia Surgical History History of parathyroid surgery Family History Mother Hypertension Father Colon cancer, Onset Age: 82 Stroke Social History Household Members: Spouse Housing: House Are you a primary healthcare liaison to a significant other at home: No Do you presently have visiting nurse or other home services: No Alcohol intake: former Patient Tobacco Use Status: Former Tobacco user Tobacco use type: Cigarette e-Cigarette/Vaping Use: Never Used Second Hand Smoke Exposure: No Advance Directives Date on File: 01/28/22 service: No Current occupational status: unemployed Cognitive needs: Yes (cane) Hearing needs: No Vision needs: Yes (glasses) Review of Systems Eyes Reports no additional complaints ENT Reports no additional complaints Card Reports as per [facility] Resp Reports no additional complaints GI Reports no additional complaints Reports as per [facility] Musc Reports as per [facility] Neuro Reports no additional complaints Psych Reports no additional complaints Endo Reports as per [facility] Patel/Lymph Reports as per [facility] Aller/Immun Reports no additional complaints Physical Exam Const General: cooperative, comfortable, no acute distress, well developed, alert and awake Nutritional Appearance: obese Orientation/consciousness: patient oriented x3 Limitations: ambulation with cane HEENT Head: Yes normal to inspection, Yes normocephalic and Yes atraumatic Ears: hearing grossly normal bilaterally Eyes General: appearance normal, both eyes and all related structures Neck Neck: Yes normal visual inspection and Yes trachea midline Chest Chest palpation & inspection: normal inspection of the chest Resp Effort & Inspection: normal respiratory effort and able to speak in complete sentences Cardio Rate: regular rate GI Inspection: Yes normal to inspection General: Yes no CVA tenderness Back/Spine/Pelvis Back: no CVA tenderness Skin General skin exam: no rashes or lesions noted Neuro General: patient oriented x3 Extrem General: Yes normal to inspection Psych Appearance: grossly normal and well kempt Mental Status: mental status grossly normal Speech and movement: Normal speech and movement present and Clear speech present Affect: normal affect Attitude: cooperative Thought process: Normal thought process present Thought content: Normal thought content present Insight: Fair insight present (Psych) Judgement: Fair judgement present (Psych) Results AMB Urinalysis, Automated UA Leukoctes 500 Zac/uL Last Edit by Damien Kearns on 05/29/24 15:43 UA Nitrite Last Edit by Damien Kearns on 05/29/24 15:43 UA Urobilinogen 0.2 mg/dL Last Edit by Damien Kearns on 05/29/24 15:43 UA Protein 15 mg/dL Last Edit by Bobyce Rubyss on 05/29/24 15:43 UA pH 6.0 Last Edit by Brandyce Rubyss on 05/29/24 15:43 UA Blood 0 Santana/uL Last Edit by Brandyce Som on 05/29/24 15:43 UA Specific Goodman 1.020 Last Edit by Brandyce Rubyss on 05/29/24 15:43 UA Ketone Last Edit by Brandyce Som on 05/29/24 15:43 UA Bilirubin 0 mg/dL Last Edit by Brandyce Rubyss on 05/29/24 15:43 UA Glucose 0 mg/dL Last Edit by Brandyce Breguillermo on 05/29/24 15:43 Results Reviewed Results Reviewed: Laboratory Last Values Urine pH (Auto) 6.0 05/29/24 15:19 Specific Goodman (Auto) 1.020 05/29/24 15:19 Urine Protein (Auto) 15 mg/dL 05/29/24 15:19 Glucose (UA)(Auto) 0 mg/dL 05/29/24 15:19 Urine Blood (Auto) 0 Santana/uL 05/29/24 15:19 Urine Bilirubin (Auto) 0 mg/dL 05/29/24 15:19 Urine Urobilinogen (Auto) 0.2 mg/dL 05/29/24 15:19 Leukocyte Esterase (Auto) 500 Zac/uL 05/29/24 15:19 Date of Service: 10/27/23 Procedure(s): CT abdomen pelvis wo IV con FINDINGS: LUNG BASES: The lung bases appear clear, with no evidence of inflammation or nodules. Upper normal in size to mildly enlarged. No pericardial effusion. LIVER, GALLBLADDER, AND BILIARY TREE: Subcentimeter benign, coarse segment 5 calcification (image 34, series 3). The liver otherwise appears unremarkable in size, shape, and attenuation. No focal hepatic lesion or biliary ductal dilatation is appreciated on this noncontrast study. Unremarkable appearance of the gallbladder. PANCREAS: Unremarkable SPLEEN: Unremarkable ADRENAL GLANDS: Unremarkable KIDNEYS AND URETERS: Approximately 0.7 cm distal left ureteral stone (image 73, series 3), with mild fullness of the left renal collecting system and ureter. No gross hydronephrosis. Multiple, approximately 1 cm or less, bilateral, nonobstructing renal collecting system stones, left greater than right. The kidneys appear unremarkable in size, shape, and attenuation. Bilateral perinephric stranding, nonspecific. BLADDER: Unremarkable GASTROINTESTINAL TRACT: Moderate to large hiatus hernia. The small and large bowel appear unremarkable. ABDOMINAL WALL: Approximately 3.5 cm umbilical hernia containing only fat. LYMPH NODES: No evidence of adenopathy by size criteria. VASCULAR: Unremarkable PELVIC VISCERA: Mildly enlarged prostate. OSSEOUS STRUCTURES: Mild degenerative changes of the lumbar spine and hips. IMPRESSION: Approximately 0.7 cm distal left ureteral stone (image 73, series 3), with mild fullness of the left renal collecting system and ureter. No gross hydronephrosis. Multiple, approximately 1 cm or less, bilateral, nonobstructing renal collecting system stones, left greater than right. Moderate to large hiatus hernia. Multiple additional findings, as above. Assessment & Plan Assessment & Plan (1) Renal calculi: Code(s): N20.0 - Calculus of kidney Category: Medical Plan In office urinalysis results reviewed with the patient today; will send for urine culture. Will obtain renal ultrasound for further assessment evaluation. We discussed near future metabolic workup to include 24 hour urine Educated to continue drinking plenty of water daily. Discussed adding 1 oz of lemon juice to water daily. Patient currently denies any bothersome urinary issues. He reports be happy with current voiding parameters. We discussed potential causes of nephrolithiasis as well as further interventions. Will send stones for stone analysis Follow-up in 3 months with imaging to be completed prior; or sooner with any issues, concerns, and or questions. Orders: Orders US renal BI Today N20.0 - Calculus of kidney Urine Culture Today N20.0 - Calculus of kidney AMB Urinalysis Automated Today Z13.9 - Encounter for screening, unspecified Surgical Today N20.0 - Calculus of kidney Patient Instructions: The patient had an opportunity to ask questions regarding the treatment plan. All questions were answered. Physical exam, labs, and imaging were discussed and reviewed in detail. As well as risks, benefits, and discussion of treatment choices. No major barriers to understanding were identified. The patient expressed understanding and agreement with the above treatment plan. The patient was made aware they should contact our office by phone for worsening of their current condition, the appearance of new symptoms, or with any questions or concerns. Compliance is encouraged with any medications and follow up testing that is ordered. It is a privilege to be allowed the opportunity to participate in? your urological care.? Again, if you have any questions or concerns If you have any questions or concerns please do not hesitate to contact me. The office is [phone]. This note is constructed using voice recognition software. While every effort has been made to ensure accuracy caser shoe parts errors may have been included. Yours sincerely, FLETCHER Ortiz Coding Level of Care Code New Pt Level 3 (85539) Diagnoses Renal calculi N20.0
--- OUTSIDE RECORDS SUMMARY | 2024-05-29 16:29 | XMS_ITS | Clinical Summary ---
Author Organization [facility] Address [id number] [place] [id number] Care Team Providers Care Inspector Type Name Role Phone Carolin Whitney MD Primary Care Provider Surgical History Surgery Date Site/Laterality Comments KNEE ARTHROSCOPY 04/24/2011 Right PROCEDURE: [place] ARTHROSCOPY AID [place] SPINE&/FX KNEE W/O FIXJ; COMMENT: Partial medial & lateral meniscectomy, & partial chondroplasty: Dr. Sexton OTHER SURGICAL HISTORY 03/06/2011 Left PROCEDURE: HI ARTHRS KNEE DRILL OSTEOCHONDRITIS DISSECANS GRFG; COMMENT: Partial medial & lateral meniscectomy, & partial chondroplasty: Dr. Sexton Medical History Medical History Date Comments Hypertension DX:Hypertension Depression DX:Depression Anxiety DX:Anxiety Social History Tobacco Use Types Packs/Day Years Used Date Smoking Tobacco: Never Assessed Sex and Gender Information Value Date Recorded Sex Assigned at Not on file Legal Sex Male 2:18 PM EST Gender Identity Not on file Sexual Orientation Not on file Obstetrics History Plan of Treatment Health Maintenance Due Date Last Done Comments DTaP,Tdap,and Td Vaccines (1 - Tdap) 1986 Hepatitis B Vaccines (1 of 3 - 19+ 3-dose series) 1986 Pneumococcal Vaccine: 50+ Ye ars (1 of 1 - PCV) 2017 Zoster Vaccines (1 of 2) 2017 Cholesterol Screening (Lipid Panel) 01/28/2022 Colorectal Cancer Screening: Colonoscopy 01/28/2022 Depression Screening 01/28/2022 HIV Screening 01/28/2022 Hepatitis C Screening 01/28/2022 Social Influencers of Health Screening 01/28/2022 COVID-19 Vaccine ( - 2023-2 5 season) 2023 Influenza Vaccine (#1) 2023 HIB Vaccines Aged Out No longer eligi ble based on patient's age to complete this topic HPV Vaccines Aged Out No longer eligi ble based on patient's age to complete this topic Hepatitis A Vaccines Aged Out No long er eligible based on patient's age to complete this topic IPV Vaccines Aged Out No longer eligi ble based on patient's age to complete this topic MMR Vaccines Aged Out No longer eligi ble based on patient's age to complete this topic Meningococcal ACWY Vaccine Aged Out N o longer eligible based on patient's age to complete this topic Meningococcal B Vacine Aged Out No lo nger eligible based on patient's age to complete this topic Pneumococcal Vaccine: Pediat rics (0 to 5 Years) and At-Risk Patients (6 to 64 Years) Aged Out No longer eligible b ased on patient's age to complete this topic RSV Immunization Patients Un perfecto 20 months Aged Out No longer eligible b ased on patient's age to complete this topic Varicella Vaccines Aged Out No longer eligible based on patient's age to complete this topic Care Teams Inspector Type Relationship Specialty Start Date End Date Carolin Whitney MD [address] [place] [address] , [address] [facility] D/B/A: [facility] WILLIAMS Carmichael PCP - General Internal Medicine 03/23/19
== END 2024-05-29 15:25 | disposition home or self-care (01) ==
LOC: HO.HUSH 14:35
PROVIDERS: PCP Internal Medicine; Visit Provider Nurse Practitioner Family
DX: N20.0 Calculus of kidney (principal); Z13.9 Encounter for screening, unspecified
CPT/HCPCS: 99203

== ENCOUNTER 2024-05-29 14:34 | Outpatient (REF) | payer OTHER, SELFPAY ==
--- OUTSIDE RECORDS SUMMARY | 2024-05-29 17:20 | XMS_ITS | Clinical Summary ---
Author Organization [facility] Address [id number] [place] [id number] Care Team Providers Care Kitchen Lead Name Role Phone Carolin Whitney MD Primary Care Provider [phone] Surgical History Surgery Date Site/Laterality Comments KNEE ARTHROSCOPY 04/24/2011 Right PROCEDURE: [place] ARTHROSCOPY AID TX SPINE&/FX KNEE W/O FIXJ; COMMENT: Partial medial & lateral meniscectomy, & partial chondroplasty: Dr. Sexton OTHER SURGICAL HISTORY 03/06/2011 Left PROCEDURE: ME ARTHRS KNEE DRILL OSTEOCHONDRITIS DISSECANS GRFG; COMMENT: [...] age to complete this topic Care Teams Kitchen Lead Relationship Specialty Start Date End Date Carolin Whitney MD [address] [place] [address] , [address] [facility] D/B/A: [facility] WILLIAMS Carmichael PCP - General Internal Medicine 03/23/19
== END 2024-05-29 14:35 | disposition home or self-care (01) ==
LOC: HO.LNP 14:34
PROVIDERS: PCP Internal Medicine; Visit Provider Nurse Practitioner Family
DX: N20.0 Calculus of kidney (principal)
CPT/HCPCS: 81003; 82365; 87086; 87088; 87186; 88300; 99202

== ENCOUNTER 2024-08-25 13:36 | Outpatient (REF) | payer OTHER, SELFPAY ==
--- NOTE | ~2024-08-25 | US_ITS ---
EXAMINATION: US KIDNEY BILATERAL HISTORY: N20.0 - Calculus of kidney TECHNIQUE: Real-time grayscale ultrasound imaging of the kidneys was performed and images were reviewed. COMPARISON: Comparison is made with the prior examination dated 04/12/2017. FINDINGS: Right kidney: The right kidney measures 10.8 x 6.5 x 5.1 cm. Renal parenchymal echotexture and thickness are normal. There are no masses. There is a 4 x 3 x 5 mm nonobstructing calculus at the lower pole. There is no hydronephrosis. Left Kidney: The left kidney measures 12.6 x 7.2 x 5.7 cm. Renal parenchymal echotexture and thickness are normal. There are no masses. There is a 4 x 3 x 5 mm nonobstructing calculus at the lower pole. There is no hydronephrosis. US/US renal BI IMPRESSION: Nonobstructing calculi at the lower poles of both kidneys. Electronically signed by: Alton Saleh MD 08/25/2024 02:44 PM EDT
--- OUTSIDE RECORDS SUMMARY | 2024-08-25 14:04 | XMS_ITS | Clinical Summary ---
[facility] Address [address] [place] [address] Care Team Providers Care Senior Director Of Strategy Name Role Phone Carolin Whitney MD Primary Care Provider [phone] Surgical History Surgery Date Site/Laterality Comments KNEE ARTHROSCOPY 04/24/2011 Right PROCEDURE: [place] ARTHROSCOPY AID TX SPINE&/FX KNEE W/O FIXJ; COMMENT: Partial medial & lateral meniscectomy, & partial chondroplasty: Dr. Sexton OTHER SURGICAL HISTORY 03/06/2011 Left PROCEDURE: [place] ARTHRS KNEE DRILL OSTEOCHONDRITIS DISSECANS GRFG; COMMENT: [...] - 2023-2 5 season) 2023 Influenza Vaccine (Season Ended) 2024 HIB Vaccines Aged Out No longer eligi [...] age to complete this topic Meningococcal B Vaccine Aged Out No l onger eligible based on patient's age to complete [...] age to complete this topic Care Teams Senior Director Of Strategy Relationship Specialty Start Date End Date Carolin Whitney MD [address] [place] [address] , [address] [facility] D/B/A: [facility] WILLIAMS Carmichael PCP - General Internal Medicine 03/23/19
== END 2024-08-25 13:37 | disposition home or self-care (01) ==
LOC: HO.US 13:36
PROVIDERS: PCP Internal Medicine; Visit Provider Nurse Practitioner Family
DX: N20.0 Calculus of kidney (principal)
CPT/HCPCS: 76775

== ENCOUNTER → 2024-08-25 13:39 | Outpatient (BNV) | payer OTHER, SELFPAY | PROVIDERS: PCP Internal Medicine; Visit Provider Radiology Diagnostic Radiology | DX: N20.0 Calculus of kidney (principal) | CPT/HCPCS: 76775 ==

== ENCOUNTER 2024-08-29 13:34 | Outpatient (AMB) | payer OTHER, SELFPAY ==
--- NOTE | 2024-08-29 13:34 | A.OFFVIS_ITS ---
Intake Visit Reasons: 3m/US Intake Note: Patient presents today for tele visit follow up on: bilateral kidney stones and ultrasound results Imaging Completed: 08/22/24 Urology Medications: none Blood Thinner: none Edge Gluer Required: No Accompanied by: Self / Same As Patient Allergies Penicillins (PENICILLINS) Allergy (Intermediate, Verified 08/29/24 14:14) ITCHING SEAFOOD Allergy (Intermediate, Uncoded 08/29/24 14:14) ITCHING/THROAT SWELLING shellfish Allergy (Intermediate, Uncoded 08/29/24 14:14) rash Medication List - Last Reconciled 08/29/24 by NIKA Ortiz-SHAHBAZ ascorbic acid (vitamin C) (Vitamin C) 500 mg PO DAILY blood pressure kit-extra large As directed cane As directed cholecalciferol (vitamin D3) 25 mcg PO DAILY 90 days diclofenac sodium 1% 2 grams topical QID 30 days ferrous sulfate (iron) 325 mg PO BID gabapentin 400 mg PO BEDTIME [Heavy duty cane As directed] hydrochlorothiazide 25 mg PO DAILY 90 days lidocaine 5% 1 patch topical DAILY 30 days magnesium oxide 400 mg PO BEDTIME 30 days omeprazole 20 mg PO DAILY@0630 90 days Shower Chair As directed heavy duty shower chair sulindac 200 mg PO BID 90 days HPI Comments Details: Bogdan is a very pleasant 59-year-old male patient of Dr. Vallejo. He has a past medical history of microcytic anemia, atrial flutter, hypoparathyroidism, obesity, nephrolithiasis, and iron deficiency anemia. He is being followed up on today via video telehealth for follow-up. Of note, patient was seen approximately 4 months ago as a new patient for nephrolithiasis at which time a renal ultrasound was ordered and performed. These results were reviewed and communicated with the patient today. 08/23 bilateral kidneys are normal in echotexture and thickness. No renal masses or hydronephrosis noted bilaterally. 5 mm nonobstructing right renal calculi and left 5 mm nonobstructing renal calculi. He does have a previous history of nephrolithiasis requiring ESWL in the past. He does endorse to be drinking plenty of water daily. When asked he denies any bothersome urinary issues. He denies urinary urgency, urinary frequency, incontinence, nocturia, hematuria, dysuria, foul smelling urine, changes to urinary stream, flank pain, fever, and or chills. He is happy with his current voiding parameters. We discussed potential causes of nephrolithiasis as well as further metabolic workup. All questions were answered. He otherwise offers no other issues or concerns at this time. Stone analysis 05/23: Calcium oxalate dehydrate 20%/calcium oxalate monohydrate 80% [facility] Medical History Microcytic anemia Anemia Atrial flutter Hypoparathyroidism after procedure Left leg pain Encounter for physical examination Super-super obese Renal calculi Iron deficiency anemia Surgical History History of parathyroid surgery Family History Mother Hypertension Father Colon cancer, Onset Age: 82 Stroke Social History Household Members: Spouse Housing: House Are you a primary intensive care specialist to a significant other at home: No Do you presently have visiting nurse or other home services: No Alcohol intake: former Patient Tobacco Use Status: Former Tobacco user Tobacco use type: Cigarette e-Cigarette/Vaping Use: Never Used Second Hand Smoke Exposure: No Advance Directives Date on File: 01/28/22 service: No Current occupational status: unemployed Cognitive needs: Yes (cane) Hearing needs: No Vision needs: Yes (glasses) Review of Systems Eyes Reports no additional complaints ENT Reports no additional complaints Card Reports as per HPI Resp Reports no additional complaints GI Reports no additional complaints Reports as per HPI Musc Reports as per HPI Neuro Reports no additional complaints Psych Reports no additional complaints Endo Reports as per HPI Patel/Lymph Reports as per HPI Aller/Immun Reports no additional complaints Physical Exam Const General: cooperative, healthy appearing, comfortable, no acute distress, well developed, alert and awake Resp Effort & Inspection: normal respiratory effort and able to speak in complete sentences Psych Appearance: grossly normal and well kempt Speech and movement: Clear speech present Affect: normal affect Attitude: cooperative Thought process: Normal thought process present Thought content: Normal thought content present Insight: Fair insight present (Psych) Judgement: Fair judgement present (Psych) Telehealth Telehealth Telehealth Platform: [employer] Location of provider rendering services: practice address Location of patient: address on file Patient Identification confirmed using: Name, : Yes Telehealth method: video Patient verbally consented to treatment: Yes Patient verbally consented to billing insurance company: Yes Patient informed of any privacy concerns related to visit: Yes Minutes spent on Phone/Video with Pt.: 20 Results Reviewed Results Reviewed: Date of Service: 08/25/24 Procedure(s): US renal BI FINDINGS: Right kidney: The right kidney measures 10.8 x 6.5 x 5.1 cm. Renal parenchymal echotexture and thickness are normal. There are no masses. There is a 4 x 3 x 5 mm nonobstructing calculus at the lower pole. There is no hydronephrosis. Left Kidney: The left kidney measures 12.6 x 7.2 x 5.7 cm. Renal parenchymal echotexture and thickness are normal. There are no masses. There is a 4 x 3 x 5 mm nonobstructing calculus at the lower pole. There is no hydronephrosis. IMPRESSION: Nonobstructing calculi at the lower poles of both kidneys. Assessment & Plan Assessment & Plan (1) Renal calculi: Code(s): N20.0 - Calculus of kidney Category: Medical Plan Recent renal imaging results reviewed with the patient today; as noted above. Stone analysis results were reviewed; as noted above He currently denies any bothersome urinary issues or concerns. He reports be happy with current voiding parameters. We discussed importance of adequate hydration in relation to nephrolithiasis as well as overall health and well-being. We discussed adding 1 oz of lemon juice to water daily. Will obtain Litholink for further assessment evaluation. Magnesium, uric acid, vitamin-D, calcium, phosphorus, BNP, and parathyroid hormo ne ordered for further assessment evaluation. Follow-up in 3 months with labs and Litholink to be completed prior; or sooner with any issues, concerns, and or questions. Orders: Orders Magnesium Today N20.0 - Calculus of kidney Parathyroid Hormone Intact Today N20.0 - Calculus of kidney Uric Acid Today N20.0 - Calculus of kidney Vitamin D 25-OH Total Today N20.0 - Calculus of kidney Prostate Specific Antigen Today N40.0 - Benign prostatic hyperplasia without lower urinary tract symptoms URORISK Today N20.0 - Calculus of kidney Basic Metabolic Panel Today N20.0 - Calculus of kidney Calcium Today N20.0 - Calculus of kidney Phosphorus Today N20.0 - Calculus of kidney Patient Instructions: The patient had an opportunity to ask questions regarding the treatment plan. All questions were answered. Physical exam, labs, and imaging were discussed and reviewed in detail. As well as risks, benefits, and discussion of treatment choices. No major barriers to understanding were identified. The patient expressed understanding and agreement with the above treatment plan. The patient was made aware they should contact our office by phone for worsening of their current condition, the appearance of new symptoms, or with any questions or concerns. Compliance is encouraged with any medications and follow up testing that is ordered. It is a privilege to be allowed the opportunity to participate in? your urological care.? Again, if you have any questions or concerns If you have any questions or concerns please do not hesitate to contact me. The office is [phone]. This note is constructed using voice recognition software. While every effort has been made to ensure accuracy audio video tech errors may have been included. Yours sincerely, FLETCHER Ortiz Coding Level of Care Code Tele Est Pt Level 3 (55981) Complex EM visit Add On G2211 Diagnoses Renal calculi N20.0
--- OUTSIDE RECORDS SUMMARY | 2024-08-29 14:43 | XMS_ITS | Clinical Summary ---
Author [facility] Address [id number] [place] [id number] Care Team Providers Care Rn Patient Services Name Role Phone Carolin Whitney MD Primary Care Provider [phone] Surgical History Surgery Date Site/Laterality Comments KNEE ARTHROSCOPY 04/24/2011 Right PROCEDURE: [place] ARTHROSCOPY AID TX SPINE&/FX KNEE W/O FIXJ; COMMENT: Partial medial & lateral meniscectomy, & partial chondroplasty: Dr. Sexton OTHER SURGICAL HISTORY 03/06/2011 Left PROCEDURE: [place] ARTHRS KNEE DRILL OSTEOCHONDRITIS DISSECANS GRFG; COMMENT: [...] 2023-2 5 season) 2023 Influenza Vaccine (#1) 2024 HIB Vaccines Aged Out No longer [...] age to complete this topic Care Teams Rn Patient Services Relationship Specialty Start Date End Date Carolin Whitney MD [address] [place] [address] , [address] [facility] D/B/A: [facility] WILLIAMS Carmichael PCP - General Internal Medicine 03/23/19
== END 2024-08-29 14:19 | disposition home or self-care (01) ==
LOC: HO.HUSH 13:34
PROVIDERS: PCP Internal Medicine; Visit Provider Nurse Practitioner Family
DX: N20.0 Calculus of kidney (principal)
CPT/HCPCS: 99213; G2211

== ENCOUNTER 2024-09-14 10:32 | Outpatient (REF) | payer OTHER, SELFPAY ==
--- OUTSIDE RECORDS SUMMARY | 2024-09-14 11:04 | XMS_ITS | Clinical Summary ---
[facility] Address [id number] [place] [id number] Care Team Providers Care Time Signal Wirer Name Role Phone Carolin Whitney MD Primary Care Provider [phone] Surgical History Surgery Date Site/Laterality Comments KNEE ARTHROSCOPY 04/24/2011 Right PROCEDURE: [place] ARTHROSCOPY AID TX SPINE&/FX KNEE W/O FIXJ; COMMENT: Partial medial & lateral meniscectomy, & partial chondroplasty: Dr. Sexton OTHER SURGICAL HISTORY 03/06/2011 Left PROCEDURE: [place] ARTHRS KNEE DRILL OSTEOCHONDRITIS DISSECANS GRFG; COMMENT: [...] age to complete this topic Care Teams Time Signal Wirer Relationship Specialty Start Date End Date Carolin Whitney MD [address] [place] [address] , [address] [facility] D/B/A: [facility] WILLIAMS Carmichael PCP - General Internal Medicine 03/23/19
[2024-09-14 12:00] LABS: Parathyroid Hormone Intact 86.4 pg/mL (8.7-77.1)
[2024-09-14 12:01] LABS: Anion Gap 12 (12-20); Blood Urea Nitrogen 15 mg/dL (9-16); Calcium 8.5 mg/dL (8.4-10.2); Carbon Dioxide 24 mmol/L (22-29); Chloride 107 mmol/L (96-108); Estimated Glomerular Filt Rate > 60; Magnesium 1.9 mg/dL (1.6-2.6); Potassium 3.9 mmol/L (3.3-5.1); Sodium 139 mmol/L (135-145); Uric Acid 7.4 mg/dL (3.4-7.0)
[2024-09-14 12:18] LABS: Prostate Specific Antigen 1.40 ng/mL (<0.05-4.0)
== END 2024-09-14 10:33 | disposition home or self-care (01) ==
LOC: HO.LAB 10:32
PROVIDERS: Absent Provider Internal Medicine; Visit Provider Nurse Practitioner Family
DX: N20.0 Calculus of kidney (principal); N40.0 Benign prostatic hyperplasia without lower urinary tract symptoms
CPT/HCPCS: 36415; 80048; 82306; 83735; 83970; 84100; 84153; 84550

== ENCOUNTER 2024-09-18 10:45 | Outpatient (AMB) | payer OTHER, SELFPAY ==
--- NOTE | 2024-09-18 10:49 | MHC.PC.OV ---
Vital Signs 09/18/24 10:51 09/18/24 11:20 Height 5 ft 5 in Weight 349 lb 2 oz BMI 58.1 BP 168/70 H 140/78 H Blood Pressure Location Lt brachial Lt brachial Position Sitting Sitting Pulse 73 Temp 98.2 F Temp Source Oral Pulse Oximetry (%) 98 Oxygen Delivery Method Room Air Intake Visit Reasons: PHYSICAL Administrative Support Assistant Required: No Accompanied by: Self / Same As Patient Allergies Penicillins (PENICILLINS) Allergy (Intermediate, Verified 09/18/24 11:16) ITCHING SEAFOOD Allergy (Intermediate, Uncoded 09/18/24 11:16) ITCHING/THROAT SWELLING shellfish Allergy (Intermediate, Uncoded 09/18/24 11:16) rash Medication List - Last Reconciled 09/18/24 by PAOLA Riggs ascorbic acid (vitamin C) (Vitamin C) 500 mg PO DAILY blood pressure kit-extra large As directed cane As directed cholecalciferol (vitamin D3) 25 mcg PO DAILY 90 days diclofenac sodium 1% 2 grams topical QID 30 days ferrous sulfate (iron) 325 mg PO BID gabapentin 400 mg PO BEDTIME [Heavy duty cane As directed] hydrochlorothiazide 25 mg PO DAILY 90 days lidocaine 5% 1 patch topical DAILY 30 days magnesium oxide 400 mg PO BEDTIME 30 days omeprazole 20 mg PO DAILY@0630 90 days Shower Chair As directed heavy duty shower chair sulindac 200 mg PO BID 90 days Tobacco use date assessed: 09/18/24 Dental Screening Dental Screen Date: 09/18/24 Did you have a dental visit in the last 12 months?: No Did you have a dental problem in the last 6 months where you did not have access to dental care?: No Was dental information given to patient?: No HPI PHYSICAL HPI Details Patient is presenting for annual physical Dentist: not in 3 or 4 years. Encouraged to make an appointment Eye: up to date Snellen: Right: Left: Corrected vision: yes, glasses STI screening: Colonoscopy: 2021- Pap Smer:n/a PHQ-9: Flu:does not usually take the flu vaccine, this made him sick for 2 weeks 1999 COVID:x2 Tdap: due 2025 Diet: regular Exercise:Reports that with the knee pain, he is not able to workout The patient is a 59-year-old male presenting with knee pain and hypertension management. The patient reports chronic knee pain, which has been persistent for several years and is exacerbated by movement. He uses a cane for ambulation and experiences significant discomfort, particularly at night, which affects his sleep. Previous interventions include a small surgery to address tendon issues, but the pain persists, often described as severe and debilitating. Hypertension has been a concern, with recheck blood pressure readings showing improvement to 140/78 mmHg after medication adjustment. The patient is currently on Hydrochlorothiazide 25 mg, and there is an emphasis on monitoring blood pressure regularly at home. Anemia is noted in the patient's history, with ongoing treatment involving iron and vitamin C supplementation to improve blood levels. The patient has a family history of anemia, which may contribute to his condition. There is a suspicion of sleep apnea due to symptoms of snoring and daytime fatigue, although no formal diagnosis has been made. The patient reports feeling weak upon waking, which may be related to anemia or sleep disturbances. The patient suspects low testosterone levels, affecting his relationship with his , and desires further evaluation. Gout is considered due to elevated uric acid levels and joint pain, particularly in the knees. The patient experiences episodes of severe pain in the big toe, which he attempts to relieve with physical manipulation. He reports difficulty sleeping, snoring, reports that sometimes, he feels weak after he wakes up home sleep study [facility] Medical History Microcytic anemia Anemia Atrial flutter Hypoparathyroidism after procedure Left leg pain Encounter for physical examination Super-super obese Renal calculi Iron deficiency anemia Surgical History History of parathyroid surgery Family History Mother Hypertension Father Colon cancer, Onset Age: 82 Stroke Social History Household Members: Spouse Housing: House Are you a primary care nurse rn to a significant other at home: No Do you presently have visiting nurse or other home services: No Alcohol intake: former Patient Tobacco Use Status: Former Tobacco user Tobacco use type: Cigarette e-Cigarette/Vaping Use: Never Used Second Hand Smoke Exposure: No Use of substances other than those prescribed or required for medical reasons: No Have you been hit, kicked, punched, or otherwise hurt by someone within the past year? If so, by whom?: No Do you feel safe in your current relationship?: Yes Advance Directives Date on File: 01/28/22 Do you have thoughts of harming others: None Do you have a plan to hurt others: No Plan Do you have the means to hurt others: No Recently lost weight without trying: No service: No Current occupational status: unemployed Cognitive needs: Yes (cane) Hearing needs: No Vision needs: Yes (glasses) Questionnaire PHQ-9 Over the last 2 weeks, how often have you been bothered by any of the following problems? 1. Little interest or pleasure in doing things: several days 2. Feeling down, depressed, or hopeless: several days 3. Trouble falling or staying asleep, or sleeping too much: several days 4. Feeling tired or having little energy: several days 5. Poor appetite or overeating: several days 6. Feeling bad about yourself - or that you are a failure or have let yourself or your family down: not at all 7. Trouble concentrating on things, such as reading the newspaper or watching television: several days 8. Moving or speaking so slowly that other people could have noticed. Or the opposite - being so fidgety or restless that you have been moving around a lot more than usual: several days 9. Thoughts that you would be better off or of hurting yourself in some way: not at all Total score: 7 Depression Screening Interpretation: Positive Depression Screening Done: Yes Source: Developed by Drs. Alton Preston, Alesia Rdz, Gerson Solorzano and colleagues, with an educational rena from [employer]. Thrive Questionnaire Date Thrive assessed: 09/18/24 I am a: Patient What is your living situation today?: I have a steady place to live Within the past 12 months, did the food you bought not last and you didn't have the money to get more?: Sometimes True Within the past 12 months, did you worry whether your food would run out before you got money to buy more?: Sometimes True Do you have trouble paying for medicines?: No Do you have trouble getting transportation to medical appointments?: Yes Do you have trouble paying your heating and electricity bill?: Yes Do you have trouble taking care of your child, family member or friend?: No Do you have trouble with day-to-day activities such as bathing, preparing meals, shopping, managing finances, etc.?: Yes Are you currently unemployed and looking for a job?: I choose not to answer this question Are you interested in more education?: I choose not to answer this question Please select the resources that you would like help with: Transportation, Utilities and Care for elder or disabled Currently or been in a relationship where the following occur: I choose not to answer THRIVE Score: 4 AUDIT C Alcohol Use Questionnaire (AUDIT-C) 1. How often do you have a drink containing alcohol?: Never Total Score: 0 JACQUELINE-7 AMB Questionnaire JACQUELINE-7 Date JACQUELINE - 7 assessed: 09/18/24 Feeling nervous, anxious, or on edge: 1 = Several days Not being able to stop or control worryin = Several days Worrying too much about different things: 1 = Several days Trouble relaxin = Several days Being so restless that it is hard to sit still: 1 = Several days Becoming easily annoyed or irritable: 0 = Not at all Feeling afraid as if something awful might happen: 0 = Not at all Total JACQUELINE-7 score (0-4 normal; 5-9 mild; 10-14 moderate; 15-21 severe): 5 Source: Developed by Drs. Alton Preston, Alesia Rdz, Gerson Solorzano and colleagues, with an educational rena from [employer]. Review of Systems Const Details: - Cardiovascular: Reports hypertension, denies chest pain or palpitations. - Musculoskeletal: Reports chronic knee pain, joint pain in the left big toe, and difficulty ambulating. - Neurological: Denies headaches, reports feeling weak upon waking. - Respiratory: Denies shortness of breath, reports snoring. - Gastrointestinal: Denies abdominal pain, constipation, or diarrhea. Reports daytime sleepiness, Reports difficulty sleeping, Denies headache(s), Reports snoring and Reports weakness (After waking up) Eyes Denies loss of vision ENT Denies vertigo, Denies dizziness, Denies headache(s) and Denies sore throat Card Denies chest pain, Denies leg edema and Denies lightheadedness Resp Reports snoring and Denies wheezing GI Denies abdominal pain, Denies melena, Denies constipation, Denies diarrhea and Denies vomiting Reports change in libido, Denies dysuria, Denies urinary frequency and Denies urinary urgency Musc Reports arthralgias (Bilateral knees and left foot great toe), Denies joint swelling, Denies numbness and Denies tingling Neuro Denies Abnormal speech present, Denies behavioral changes, Denies vertigo, Denies dizziness, Denies headache(s), Denies loss of vision, Denies memory loss, Denies numbness, Denies tingling and Reports weakness (After waking up) Psych Denies anxiety, Denies behavioral changes, Reports change in libido, Denies depression, Denies memory loss and Denies panic attacks Endo Reports change in libido Patel/Lymph Denies easy bleeding and Denies easy bruising Aller/Immun Denies wheezing Physical exam (Primary Care) Vital Signs: Last Vital Signs Temp 98.2 F 09/18/24 11:20 Pulse 73 09/18/24 10:51 BP 140/78 H 09/18/24 11:20 Pulse Ox 98 09/18/24 10:51 Oxygen Delivery Method Room Air 09/18/24 10:51 BMI result Body Mass Index 58.1 Tobacco/Smoking Status: Tobacco use Status Tobacco use date assessed 09/18/24 09/18/24 10:56 Patient Tobacco Use Status Former Tobacco user 09/18/24 10:49 Tobacco use type Cigarette 09/18/24 10:49 e-Cigarette/Vaping Use Never Used 09/18/24 10:49 PHQ-9: PHQ-9 Score PHQ-9: Total score 7 10/01/24 18:29 Depression Screening Interpretation: Positive Thrive Assessment: Date of Thrive Assessment Date Thrive assessed 09/18/24 09/18/24 10:56 Currently or been in a relationship where the following occur: I choose not to answer Const General: healthy appearing, no acute distress, alert and awake Nutritional Appearance: well nourished Orientation/consciousness: oriented to person, oriented to place and oriented to time HENMT Ears: TM's normal bilaterally General nose exam: Normal nasal mucous membranes and turbinates present Eyes Conjunctivae: conjunctivae normal Sclerae: sclerae normal Pupils: Equal, round and reactive pupils present Neck Neck: Yes no lymphadenopathy and Yes no JVD Thyroid: Thyroid normal Carotids: no bruits Resp Effort & Inspection: normal respiratory effort and not tachypneic Auscultation: no crackles, no rales, no rhonchi and no wheezes Cardio Rate: regular rate Rhythm: regular rhythm Heart sounds: S1 normal heart sound present, S2 normal heart sound present, no murmurs and normal S1 and S2 GI Palpation (GI): Soft to palpation, nontender, no hepatomegaly and no splenomegaly Auscultation: normal bowel sounds General: Yes no CVA tenderness Back/Spine/Pelvis Back: no CVA tenderness Thoracic/Lumbar Spine: thoracic and lumbar spine normal to inspection Skin General skin exam: no rashes or lesions noted and dry skin Neuro General: oriented to person, oriented to place and oriented to time Cranial nerves: Yes CN's II-XII intact bilaterally and Yes Equal, round and reactive pupils present Speech: No Abnormal speech present Gait exam (Neuro): Normal gait present Motor exam (neuro): 5/5 motor strength present throughout and no tremor noted Deep tendon reflexes (DTR's): Right triceps reflex intensity grade: 2+, Left triceps reflex intensity grade: 2+, Rt Biceps (C5, C6): 2+, Left biceps reflex intensity grade: 2+, Right brachioradialis reflex intensity grade: 2+ and Left brachioradialis reflex intensity grade: 2+ Extrem Right upper extremity: full ROM Left upper extremity: full ROM Right lower extremity: full ROM, edema and lower leg Details: pitting edema Details: 2+ Left lower extremity: full ROM, edema and lower leg Details: pitting edema Details: 2+ Psych Mental Status: mental status grossly normal Speech and movement: Normal speech and movement present Affect: normal affect Attitude: cooperative Thought process: Normal thought process present Results Reviewed Results Reviewed: Laboratory Tests 09/14/24 10:49 Sodium 139 Potassium 3.9 Chloride 107 Carbon Dioxide 24 Anion Gap 12 BUN 15 Creatinine 0.68 Estimated GFR > 60 Random Glucose 85 Uric Acid 7.4 H Calcium 8.5 Phosphorus 2.9 Magnesium 1.9 Prostate Specific Ag 1.40 25-OH Vitamin D Total 25.1 L PTH Intact 86.4 H Coding Level of Care Code Est Pt Prev Care 40-64y(10575) Diagnoses Physical exam Z00.00 Chronic pain of both knees M25.561; M25.562; G89.29 Chronicity: chronic Iron deficiency anemia, unspecified iron deficiency anemia type D50.9 Iron deficiency anemia type: unspecified iron deficiency Chronic GERD K21.9 Chronic idiopathic constipation K59.04 Hypovitaminosis D E55.9 Essential hypertension I10 Decreased libido R68.82 Difficulty sleeping G47.9 Daytime sleepiness R40.0 Snoring R06.83 Morbid obesity with BMI of 50.0-59.9, adult E66.01; Z68.43 Gout involving toe of left foot, unspecified cause, unspecified chronicity M10.9 Gout site: toe Gout etiology: unspecified cause Chronicity: unspecified Laterality: left Time Spent (min) 41 Assessment & Plan Assessment & Plan (1) Physical exam: Code(s): Z00.00 - Encounter for general adult medical examination without abnormal findings Category: Medical Plan: Preventative guidelines reviewed with the patient. The patient had partial amount of labs completed on 09/14/24, these were reviewed with the patient and the rest of his labs were ordered. The patient is up-to-date on most preventative screenings, except dental evaluation patient has not gone in 3-4 years. Recommended make an appointment. (2) Bilateral knee pain: Code(s): M25.561 - Pain in right knee; M25.562 - Pain in left knee Category: Medical Qualifiers: Chronicity: chronic Qualified Code(s): M25.561 - Pain in right knee; M25.562 - Pain in left knee; G89.29 - Other chronic pain Plan: Reports longstanding bilateral knee pain. He is using a cane to ambulate today in office. The patient reports that this is his norm, his knees have been bothering him. Bilateral knee x-ray ordered to further evaluate. Continue sulindac 200 mg b.i.d., gabapentin 400 mg at bedtime (3) Iron deficiency anemia: Code(s): D50.9 - Iron deficiency anemia, unspecified Category: Medical Qualifiers: Iron deficiency anemia type: unspecified iron deficiency Qualified Code(s): D50.9 - Iron deficiency anemia, unspecified Plan: Chronic anemia. Diagnostic bone marrow aspiration/biopsy performed on 03/07/2024 shows normocellular marrow with maturing trilineage hematopoiesis. Normal iron storage. Features of dysplasia or infiltrative process identified. Cytogenics revealed normal male karyotype. No alterations in myeloid macular panel. Abdominal ultrasound and CT abdomen and pelvis all has been negative for hepatosplenomegaly or lymphadenopathy. The most recent H&H was 10.8/33.1. Continue ferrous sulfate 325 mg b.i.d.. Follow up with Hematology as scheduled (4) Chronic GERD: Code(s): K21.9 - Gastro-esophageal reflux disease without esophagitis Category: Medical Plan: Do not eat meals or drink carbonated beverages within 3 hr of bedtime Decrease the amount of fried, fatty, and spicy foods to decrease gastric acid production Raise the head of the bed using 4 to 6-inch blocks, especially if nocturnal symptoms are present Lose weight if indicated; avoid tight-fitting clothing, especially around the waist Avoid foods that relax the Lower esophageal sphincter (chocolate, peppermint, high-fat foods etc.,) Continue omeprazole 20 mg daily (5) Chronic idiopathic constipation: Code(s): K59.04 - Chronic idiopathic constipation Category: Medical Plan: Encouraged increasing fluids and dietary fiber (6) Hypovitaminosis D: Code(s): E55.9 - Vitamin D deficiency, unspecified Category: Medical Plan: Continue cholecalciferol 25 mcg daily (7) Essential hypertension: Code(s): I10 - Essential (primary) hypertension Category: Medical Plan: Blood pressure 117/65. Within goal Reinforced dash diet Continue hydrochlorothiazide 25 mg (8) Decreased libido: Code(s): R68.82 - Decreased libido Category: Medical Plan: Testosterone levels ordered to further evaluate. Explained to the patient that this could be due to his chronic anemia as well. (9) Difficulty sleeping: Code(s): G47.9 - Sleep disorder, unspecified Category: Medical Plan: Sleep study ordered (10) Daytime sleepiness: Code(s): R40.0 - Somnolence Category: Medical Plan: Sleep study ordered (11) Snoring: Code(s): R06.83 - Snoring Category: Medical Plan: Sleep study ordered (12) Morbid obesity with BMI of 50.0-59.9, adult: Code(s): E66.01 - Morbid (severe) obesity due to excess calories; Z68.43 - Body mass index [BMI] 50.0-59.9, adult Category: Medical Plan: Encouraged low-calorie diet to lose weight (13) Gout: Code(s): M10.9 - Gout, unspecified Category: Medical Qualifiers: Gout site: toe Gout etiology: unspecified cause Chronicity: unspecified Laterality: left Qualified Code(s): M10.9 - Gout, unspecified Plan: Uric acid 7.4 on 09/14/2024 Started allopurinol 100 mg daily Orders: Orders Testosterone, Free/Total 09/18/24 I10 - Essential (primary) hypertension, E66.01 - Morbid (severe) obesity due to excess calories, Z68.44 - Body mass index [BMI] 60.0-69.9, adult, E55.9 - Vitamin D deficiency, unspecified, K21.9 - Gastro-esophageal reflux disease without esophagitis, M25.561 - Pain in right knee CRP High Sensitivity 09/18/24 I10 - Essential (primary) hypertension, E66.01 - Morbid (severe) obesity due to excess calories, Z68.44 - Body mass index [BMI] 60.0-69.9, adult, E55.9 - Vitamin D deficiency, unspecified, K21.9 - Gastro-esophageal reflux disease without esophagitis, M25.561 - Pain in right knee Erythrocyte Sedimentation Rate 09/18/24 I10 - Essential (primary) hypertension, E66.01 - Morbid (severe) obesity due to excess calories, Z68.44 - Body mass index [BMI] 60.0-69.9, adult, E55.9 - Vitamin D deficiency, unspecified, K21.9 - Gastro-esophageal reflux disease without esophagitis, M25.561 - Pain in right knee XR Knee Kerwin 3V 09/18/24 M25.561 - Pain in right knee, M25.562 - Pain in left knee Complete Blood Count Auto Diff 09/18/24 I10 - Essential (primary) hypertension, Z68.44 - Body mass index [BMI] 60.0-69.9, adult, E55.9 - Vitamin D deficiency, unspecified, K21.9 - Gastro-esophageal reflux disease without esophagitis, E66.01 - Morbid (severe) obesity due to excess calories, M25.561 - Pain in right knee UA CC w/rflx Micro + Cult 09/18/24 I10 - Essential (primary) hypertension, E66.01 - Morbid (severe) obesity due to excess calories, Z68.44 - Body mass index [BMI] 60.0-69.9, adult, E55.9 - Vitamin D deficiency, unspecified, K21.9 - Gastro-esophageal reflux disease without esophagitis, M25.561 - Pain in right knee Lipid Panel 09/18/24 I10 - Essential (primary) hypertension, E66.01 - Morbid (severe) obesity due to excess calories, Z68.44 - Body mass index [BMI] 60.0-69.9, adult, E55.9 - Vitamin D deficiency, unspecified, K21.9 - Gastro-esophageal reflux disease without esophagitis, M25.561 - Pain in right knee TSH reflex Free T4 09/18/24 I10 - Essential (primary) hypertension, E66.01 - Morbid (severe) obesity due to excess calories, Z68.44 - Body mass index [BMI] 60.0-69.9, adult, E55.9 - Vitamin D deficiency, unspecified, K21.9 - Gastro-esophageal reflux disease without esophagitis, M25.561 - Pain in right knee Medications: New allopurinol 100 mg PO DAILY 30 tabs 3RF
[2024-09-18 10:51] VITALS: BP 168/70; PULSE 73; O2SAT 98; BMI 58.1
[2024-09-18 11:20] VITALS: BP 140/78; TEMP 36.8
--- OUTSIDE RECORDS SUMMARY | 2024-09-18 11:51 | XMS_ITS | Clinical Summary ---
Author Organization [facility] Address [address] [place] [address] Care Team Providers Care Manager Reliability Name Role Phone Carolin Whitney MD Primary Care Provider [phone] Surgical History Surgery Date Site/Laterality Comments KNEE ARTHROSCOPY 04/24/2011 Right PROCEDURE: [place] ARTHROSCOPY AID [place] SPINE&/FX KNEE W/O FIXJ; COMMENT: Partial medial & lateral meniscectomy, & partial chondroplasty: Dr. Sexton OTHER SURGICAL HISTORY 03/06/2011 Left PROCEDURE: [place] ARTHRS KNEE DRILL OSTEOCHONDRITIS DISSECANS GRFG; COMMENT: [...] Panel) 01/28/2022 Colorectal Cancer Screening: Colonoscopy 01/28/2022 HIV Screening 01/28/2022 Hepatitis C Screening 01/28/2022 Social Influencers of Health Screening 01/28/2022 COVID-19 Vaccine (1 - 2023-2 5 season) 2023 Depression Screening 03/01/2024 Influenza Vaccine (#1) 2024 HIB Vaccines Aged [...] age to complete this topic Care Teams Manager Reliability Relationship Specialty Start Date End Date Carolin Whitney MD [address] [place] [address] , [address] [facility] D/B/A: [facility] WILLIAMS Carmichael PCP - General Internal Medicine 03/23/19
== END 2024-09-18 12:06 | disposition home or self-care (01) ==
LOC: HO.HMCH 10:46
PROVIDERS: PCP Internal Medicine
DX: Z00.00 Encounter for general adult medical examination without abnormal findings (principal); M25.561 Pain in right knee; M25.562 Pain in left knee; G89.29 Other chronic pain; D50.9 Iron deficiency anemia, unspecified; K21.9 Gastro-esophageal reflux disease without esophagitis; K59.04 Chronic idiopathic constipation; E55.9 Vitamin D deficiency, unspecified; I10 Essential (primary) hypertension; R68.82 Decreased libido; G47.9 Sleep disorder, unspecified; R40.0 Somnolence; R06.83 Snoring; E66.01 Morbid (severe) obesity due to excess calories; Z68.43 Body mass index [BMI] 50.0-59.9, adult; M10.9 Gout, unspecified

== ENCOUNTER → 2024-09-18 10:45 | Outpatient (BNVA) | payer OTHER, SELFPAY | PROVIDERS: PCP Internal Medicine | DX: Z00.00 Encounter for general adult medical examination without abnormal findings (principal); I10 Essential (primary) hypertension; M25.561 Pain in right knee; M25.562 Pain in left knee; G89.29 Other chronic pain; D50.9 Iron deficiency anemia, unspecified; K21.9 Gastro-esophageal reflux disease without esophagitis; K59.04 Chronic idiopathic constipation; E55.9 Vitamin D deficiency, unspecified; R68.82 Decreased libido; R40.0 Somnolence; R06.83 Snoring; E66.01 Morbid (severe) obesity due to excess calories; M10.9 Gout, unspecified; Z68.43 Body mass index [BMI] 50.0-59.9, adult | CPT/HCPCS: 99396 ==

== ENCOUNTER 2024-10-20 09:21 | Outpatient (REF) | payer OTHER, SELFPAY ==
--- NOTE | ~2024-10-20 | US_ITS ---
EXAMINATION: US ABDOMEN COMPLETE CLINICAL INFORMATION: Anemia. Probable hepatosplenomegaly.. COMPARISON: Correlated to CT dated October 27, 2023. TECHNIQUE: Real-time ultrasound of the abdomen using grayscale technique. FINDINGS: PANCREAS: No peripancreatic fluid collections. ABDOMINAL AORTA: The mid, and distal segments are normal in caliber. INFERIOR VENA CAVA: Visualized portions are normal. LIVER: Liver measures 19 cm. Increased echotexture. No nodular surface. No solid or cystic lesion detected by the technologist. No intrahepatic biliary ductal dilatation. GALLBLADDER: Fluid-filled. No distended. No pericholecystic fluid collection or gallbladder wall thickening. COMMON BILE DUCT: 3 mm.. RIGHT KIDNEY: 1 cm. Normal echotexture. Normal renal cortical thickness. No hydronephrosis. No gross solid or cystic lesion detected.. LEFT KIDNEY: 12 cm. Normal echotexture. Normal renal cortical thickness. No hydronephrosis. There is a 0.7 and 0.9 mm hyperechoic structures in the midportion and lower pole.. SPLEEN: 11 cm. No mass.. FREE FLUID: None. US/US abdomen complete IMPRESSION: Hepatomegaly and likely steatosis. Spleen with normal size. No hydronephrosis. Nonobstructing nephrolithiasis, left kidney. No cholelithiasis or choledocholithiasis. Electronically signed by: Tin Mendoza MD 10/20/2024 11:21 AM EDT
--- OUTSIDE RECORDS SUMMARY | 2024-10-20 09:26 | XMS_ITS | Clinical Summary ---
Author Organization [facility] Address [address] [place] [address] Care Team Providers Care Assistant Produce Manager Name Role Phone Carolin Whitney MD Primary Care Provider [phone] Surgical History Surgery Date Site/Laterality Comments KNEE ARTHROSCOPY 04/24/2011 Right PROCEDURE: [place] ARTHROSCOPY AID [place] SPINE&/FX KNEE W/O FIXJ; COMMENT: Partial medial & lateral meniscectomy, & partial chondroplasty: Dr. Sexton OTHER SURGICAL HISTORY 03/06/2011 Left PROCEDURE: [place] ARTHRS KNEE DRILL OSTEOCHONDRITIS DISSECANS GRFG; COMMENT: [...] age to complete this topic Care Teams Assistant Produce Manager Relationship Specialty Start Date End Date Carolin Whitney MD [address] [place] [address] , [address] [facility] [place] Physician Associ D/B/A: [facility] WILLIAMS Carmichael PCP - General Internal Medicine 03/23/19
== END 2024-10-20 09:22 | disposition home or self-care (01) ==
LOC: HO.US 09:21
PROVIDERS: PCP Internal Medicine; Visit Provider Internal Medicine
DX: D64.9 Anemia, unspecified (principal)
CPT/HCPCS: 76700

== ENCOUNTER → 2024-10-20 09:26 | Outpatient (BNV) | payer OTHER, SELFPAY | PROVIDERS: PCP Internal Medicine; Visit Provider Radiology Diagnostic Radiology | DX: R16.0 Hepatomegaly, not elsewhere classified (principal) | CPT/HCPCS: 76700 ==

== ENCOUNTER 2025-01-10 13:07 | Outpatient (REF) | payer OTHER, SELFPAY ==
--- NOTE | ~2025-01-10 | XR_ITS ---
EXAMINATION: XR SACRUM AND COCCYX CLINICAL INFORMATION: M53.3 - Sacrococcygeal disorders, not elsewhere classified Coccygeal pain COMPARISON: None available. TECHNIQUE: 3 views FINDINGS: The sacrum and coccyx are partially obscured on the frontal view. In the visualized structures, no acute fracture or malalignment is seen. SI joints are symmetric. Normal articulation of bilateral hip joints. Mild symphysis pubis degeneration. No suspicious bony lesion. No soft tissue emphysema. No unexpected radiopaque foreign bodies. XR/XR sacrum coccyx min 2V IMPRESSION: No radiographic evidence of acute osseous findings Electronically signed by: Ori Thakur MD 01/10/2025 03:56 PM EST
== END 2025-01-10 13:08 | disposition home or self-care (01) ==
LOC: HO.XRAY 13:07
PROVIDERS: Visit Provider Student in an Organized Health Care Education/Training Program
DX: M53.3 Sacrococcygeal disorders, not elsewhere classified (principal); E66.01 Morbid (severe) obesity due to excess calories; Z79.899 Other long term (current) drug therapy; Z68.43 Body mass index [BMI] 50.0-59.9, adult
CPT/HCPCS: 72220; 99212

== ENCOUNTER 2025-02-01 21:35 | Emergency (ER) | payer OTHER, SELFPAY ==
[2025-02-01 21:40] VITALS: BP 101/67; PULSE 80; RESP 18; TEMP 36.6; O2SAT 98; BMI 59.2
[2025-02-02] VITALS: BP 132/82; PULSE 77; RESP 20; TEMP 36.6; O2SAT 95
--- NOTE | 2025-02-02 00:03 | ED.BACK ---
HPI - Back Pain/Injury General Chief Complaint: Back Pain/Injury Stated Complaint: Back Pain Time Seen by Provider: 02/01/25 23:57 History of Present Illness ED Provider: santos HPI Narrative: 60-year-old male with morbid obesity, chronic left low back pain without injury but gradually progressing left lumbosacral pain, radiating down the left buttock and leg. He's been using some canes, but feels there's no motor deficit or just limited ambulation due to pain limitation. He's able to lift his leg, push his toes down, normal BM and urination without retention or incontinence, denies sensory changes in the perineum or extremity or back. Related Data Previous Rx's ?Medication ?Instructions ?Recorded cane #1 ea 09/15/23 Shower Chair #1 ea 09/16/23 Heavy duty cane #1 ea 09/20/23 blood pressure kit-extra large #1 ea 11/23/23 hydrochlorothiazide 25 mg tablet 25 mg PO DAILY 90 days #90 tabs 02/24/24 magnesium oxide 400 mg PO BEDTIME 30 days #30 tabs 06/04/24 lidocaine 5 % topical patch 1 patch topical DAILY 30 days #30 06/19/24 ea cholecalciferol (vitamin D3) 25 25 mcg PO DAILY 90 days #90 caps 08/12/24 mcg (1,000 unit) capsule omeprazole 20 mg capsule,delayed 20 mg PO DAILY@0630 90 days #90 08/17/24 release caps ascorbic acid (vitamin C) 500 mg 500 mg PO DAILY #90 tabs 09/05/24 tablet (Vitamin C) allopurinol 100 mg tablet 100 mg PO DAILY #90 tabs 12/10/24 sulindac 200 mg tablet 200 mg PO BID 90 days #180 tabs 12/22/24 ferrous sulfate 325 mg (65 mg 325 mg PO BID #60 tabs 01/01/25 iron) tablet (iron) diclofenac sodium 1 % topical gel 2 g topical QID 30 days #100 grams 01/08/25 meloxicam 7.5 mg tablet 7.5 mg PO DAILY coccyx pain 7 days 01/10/25 #30 tabs omeprazole 20 mg capsule,delayed 20 mg PO DAILY 10 days #10 caps 02/02/25 release prednisone 50 mg tablet 50 mg PO DAILY 4 days #4 tabs 02/02/25 Allergies Allergy/AdvReac Type Severity Reaction Status Date / Time Penicillins (PENICILLINS) Allergy Intermediate ITCHING Verified 02/01/25 21:46 SEAFOOD Allergy Intermediate ITCHING/THROAT Uncoded 09/18/24 11:16 SWELLING shellfish Allergy Intermediate rash Uncoded 09/18/24 11:16 [facility] Past Medical History Medical History Microcytic anemia Anemia Atrial flutter Hypoparathyroidism after procedure Left leg pain Encounter for physical examination Super-super obese Renal calculi Iron deficiency anemia Surgical History History of parathyroid surgery Family History Family History Mother Hypertension Father Colon cancer, Onset Age: 82 Stroke Social History Social History Household Members: Spouse Housing: House Are you a primary transitions rn care coordinator to a significant other at home: No Do you presently have visiting nurse or other home services: No Alcohol intake: former Patient Tobacco Use Status: Former Tobacco user Tobacco use type: Cigarette e-Cigarette/Vaping Use: Never Used Second Hand Smoke Exposure: No Use of substances other than those prescribed or required for medical reasons: No Advance Directives: Yes Advance Directives on File: Yes Advance Directives Date on File: 01/28/22 Do you have a plan to hurt others: No Plan service: No Current occupational status: unemployed Cognitive needs: Yes (cane) Hearing needs: No Vision needs: Yes (glasses) Physical Exam Exam: Exam: EXAM: Gen: Alert, awake, well appearing, well hydrated. Head: Atraumatic Eyes: Anicteric, Normal conjunctiva. ENT: Moist mucosa, no pallor. Neck: Supple. Respiratory: Breathing comfortably, No distress.Clear to auscultation bilaterally, symmetric chest expansion, No wheeze, rales, ronchi. Cardiovascular: Regular rate and rhythm. No murmurs or rub. Well perfused periphery, warm extremities. No edema. Abdominal: Soft, no objective distension. No palpable masses or obvious organomegaly. No focal tenderness, no guarding, no rebound tenderness or other peritoneal findings. : No flank tenderness. MSK: Moderate tenderness left lumbar sacral area, no mid-line tenderness, no bruising or step-off. Neuro: Alert. Gross movement of all extremities intact. 5/5 strength with plantar and dorsiflexion and left leg elevation. Negative straight leg test. Intact sensation throughout the lower extremities to light touch. Vital signs: See flowsheet Vital Signs: Vital Signs: Last Vital Signs Temp 97.8 F 02/02/25 01:23 Pulse 68 02/02/25 01:23 Resp 17 02/02/25 01:23 BP 141/72 H 02/02/25 01:23 Pulse Ox 96 02/02/25 01:23 O2 Del Method Room Air 02/02/25 01:23 BMI result Body Mass Index 59.2 Medications Administered Discontinued Medications Generic Name Dose Route Start Last Admin Trade Name Freq PRN Reason Stop Dose Admin Acetaminophen 975 mg 02/02/25 00:04 02/02/25 00:16 Acetaminophen 325 Mg Tablet PO 02/02/25 00:05 975 mg ONCE ONE Administration Diazepam 2 mg 02/02/25 00:04 02/02/25 00:17 Diazepam 2 Mg Tablet PO 02/02/25 00:05 2 mg ONCE ONE Administration Hydromorphone HCl 0.5 mg 02/02/25 00:04 02/02/25 00:16 Hydromorphone Hcl 2 Mg Tablet PO 02/02/25 00:05 0.5 mg ONCE ONE Administration Ketorolac Tromethamine 30 mg 02/02/25 00:04 02/02/25 00:16 Ketorolac Tromethamine 30 Mg/Ml Vial IM 02/02/25 00:05 30 mg ONCE ONE Administration Lidocaine 1 patch 02/02/25 00:04 02/02/25 00:25 Lidocaine 4 % Patch Adh..Patch TRANSDERMA 02/02/25 00:05 1 patch ONCE ONE Administration Protocol Medical Decision Making Medical Decision Making MDM Narrative: Medical Decision Making: [age] male with morbid obesity chronic left low back pain worsening with a past we spoke to his physician he has not been taking Motrin 800 mg 3 times a day for a few days a now radiating down leg he has been having 2 canes to get around. No numbness tingling incontinence or focal motor weakness. His pain is limiting ambulation no motor deficits he is mildly tender left lumbosacral area there was no bruising or midline tenderness or step-off Preliminary Favored Differential Diagnosis: Sciatica, lumbar strain, radiculopathy among additional considered etiologies Testing Interpreted Independently: ?See below for details Radiology or Lab testing Results Reviewed: ?See below for details Consults: ?See below for details Independent Historians/External Chart Reviews: ?See below for details Social Determinants of Health Impacting MDM/Planning: ?See below for details Discharge Plan Discharge Clinical Impression: Low back pain Patient Disposition: Home, Self-Care Instructions: Acute Low Back Pain (ED) Additional Instructions: DISCHARGE DIAGNOSES: Low back pain likely radiculopathy HISTORY OF PRESENTATION: ?Low back pain worsening over the past week EMERGENCY DEPARTMENT COURSE,TESTS, TREATMENTS: While in the ED today you had few different medications including anti-inflammatories topical lidocaine patch Tylenol and Valium DISCHARGE MEDICATIONS: ?[We have made no changes to your regular medication regimen] we have added prednisone and antacid omeprazole FOLLOW-UP: ?Call your primary or general physician soon as possible to discuss your symptoms, your ED visit and to discuss follow up plans Call your primary doctor for referral INSTRUCTIONS ?& RETURN PRECAUTIONS: If any symptoms change first call your primary physician, if it is after-hours your primary doctors office should have a provider customer contact specialist you can speak with. If the symptoms are severe or very concerning to you then call 911 or return to the ED. Jonh Cervantes MD Emergency Physician [facility] Prescriptions: New prednisone 50 mg tablet 50 mg PO DAILY 4 Days Qty: 4 0RF omeprazole 20 mg capsule,delayed release(DR/EC) 20 mg PO DAILY 10 Days Qty: 10 0RF No Action (DME) cane Device See Rx Instructions .Route Qty: 1 0RF Rx Instructions: As directed (DME) Shower Chair Misc See Rx Instructions .Route Qty: 1 0RF Rx Instructions: As directed heavy duty shower chair (DME) Heavy duty cane See Rx Instructions .Route .MEDSUPPLY Qty: 1 0RF Rx Instructions: As directed (DME) blood pressure kit-extra large Kit See Rx Instructions .Route Qty: 1 0RF Rx Instructions: As directed hydrochlorothiazide 25 mg tablet 25 mg PO DAILY 90 Days Qty: 90 3RF magnesium oxide 400 mg magnesium tablet 400 mg PO BEDTIME 30 Days Qty: 30 6RF lidocaine 5 % adhesive patch,medicated 1 patch topical DAILY 30 Days Qty: 30 11RF Rx Instructions: leave on most painful area for up to 12 hrs cholecalciferol (vitamin D3) 25 mcg (1,000 unit) capsule 25 mcg PO DAILY 90 Days Qty: 90 1RF omeprazole 20 mg capsule,delayed release(DR/EC) 20 mg PO DAILY@0630 90 Days Qty: 90 1RF allopurinol 100 mg tablet 100 mg PO DAILY Qty: 90 1RF sulindac 200 mg tablet 200 mg PO BID 90 Days Qty: 180 1RF diclofenac sodium 1 % gel 2 g topical QID 30 Days Qty: 100 1RF Rx Instructions: apply to single elbow, wrist or hand; for hand includes palm/fingers/back of hand ascorbic acid (vitamin C) [Vitamin C] 500 mg Tablet 500 mg PO DAILY Qty: 90 2RF ferrous sulfate [iron] 325 mg (65 mg iron) Tablet 325 mg PO BID Qty: 60 1RF meloxicam 7.5 mg tablet 7.5 mg PO DAILY 7 Days Qty: 30 0RF Interventions: ED Discharge Assessment Last Done: 02/02/25 01:23 Discharge Date/Time: 02/02/25 01:27 Print Language: Norwegian
--- OUTSIDE RECORDS SUMMARY | 2025-02-02 00:14 | XMS_ITS | Clinical Summary ---
Author Organization [facility] Address [address] [place] [id number] Care Team Providers Care Tax Examiner Name Role Phone Carolin Whitney MD Primary Care Provider [phone] Surgical History Surgery Date Site/Laterality Comments KNEE ARTHROSCOPY 04/24/2011 Right PROCEDURE: IA ARTHROSCOPY AID TX SPINE&/FX KNEE W/O FIXJ; COMMENT: Partial medial & lateral meniscectomy, & partial chondroplasty: Dr. Sexton OTHER SURGICAL HISTORY 03/06/2011 Left PROCEDURE: IA ARTHRS KNEE DRILL OSTEOCHONDRITIS DISSECANS GRFG; COMMENT: [...] 2017 Zoster Vaccines (1 of 2) 2017 Depression Screening 03/01/2024 COVID-19 Vaccine ( - 2024-2 6 season) 2024 Influenza Vaccine (#1) 2024 RSV Immunization Adult Patie nts (1 - 1-dose 75+ series) 2042 HIB Vaccines Aged Out No longer eligi [...] age to complete this topic Care Teams Tax Examiner Relationship Specialty Start Date End Date Carolin Whitney MD [address] [place] [address] , [address] [facility] WILLIAMS Carmichael PCP - General Internal Medicine 03/23/19
[2025-02-02] MEDS: Lidocaine 4 % Patch ADH..PATCH 1 PATCH TRANSDERMA (00:25)
[2025-02-02 01:23] VITALS: BP 141/72; PULSE 68; RESP 17; TEMP 36.6; O2SAT 96
== END 2025-02-02 01:27 | disposition home or self-care (01) ==
PROVIDERS: Emergency Provider Emergency Medicine
DX: M54.50 Low back pain, unspecified (principal); M79.605 Pain in left leg; R26.81 Unsteadiness on feet; Z79.899 Other long term (current) drug therapy
CPT/HCPCS: 96372; 99284; J1885

== ENCOUNTER 2025-02-08 13:28 | Emergency (ER) | payer OTHER, SELFPAY ==
--- NOTE | ~2025-02-08 | XR_ITS ---
EXAMINATION: XR CHEST CLINICAL INFORMATION: cough, congestion COMPARISON: CT chest 01/23/2022. TECHNIQUE: 2 views of the chest were obtained. FINDINGS: There is mild cardiac enlargement. Mediastinal and hilar contours appear normal. There is a large retrocardiac hiatus hernia present. The lungs are clear bilaterally. There is no pneumothorax or pleural effusion. There is no focal osseous or soft tissue abnormality. There are mild degenerative changes throughout the spine. XR/XR chest 2V IMPRESSION: 1. No active pulmonary disease. 2. Mild cardiac enlargement. 3. Prominent retrocardiac hiatus hernia. Electronically signed by: Blake Ceballos MD 02/08/2025 03:18 PM ROBERTA
[2025-02-08 14:08] VITALS: BP 128/65; PULSE 97; RESP 18; TEMP 36.5; O2SAT 97; BMI 59.1
--- NOTE | 2025-02-08 14:08 | ED.GENADULT ---
HPI - General Adult General Chief complaint: Back Pain/Injury Stated complaint: leg pain Time Seen by Provider: 02/08/25 15:59 Source: patient, family (patient's ) and html developer (all interactions with this patient were facilitated with an [facility] computer engineering professor (Carolin)) Mode of arrival: wheelchair Limitations: language barrier (all interactions with this patient were facilitated with an [facility] computer engineering professor (Carolin)) History of Present Illness ED Provider: Chey Craft PA-C HPI narrative: Patient is a 60 year old male with a history of gout, lumbar degenerative disc disease, atrial flutter, and iron deficiency anemia presenting to the emergency department today with continued back pain and body aches. Patient states that he was seen here on 02/02/2025 and given medication for his back but he has run out and the pain continues. Patient states that he is also having body aches and so is his . Patient states that he is to go to [place] soon and would like medication to help with his back pain for his trip. Patient denies any other complaints at this time. Related Data Previous Rx's ?Medication ?Instructions ?Recorded cane #1 ea 09/15/23 Shower Chair #1 ea 09/16/23 Heavy duty cane #1 ea 09/20/23 blood pressure kit-extra large #1 ea 11/23/23 magnesium oxide 400 mg PO BEDTIME 30 days #30 tabs 06/04/24 lidocaine 5 % topical patch 1 patch topical DAILY 30 days #30 06/19/24 ea cholecalciferol (vitamin D3) 25 25 mcg PO DAILY 90 days #90 caps 08/12/24 mcg (1,000 unit) capsule omeprazole 20 mg capsule,delayed 20 mg PO DAILY@0630 90 days #90 08/17/24 release caps ascorbic acid (vitamin C) 500 mg 500 mg PO DAILY #90 tabs 09/05/24 tablet (Vitamin C) allopurinol 100 mg tablet 100 mg PO DAILY #90 tabs 12/10/24 sulindac 200 mg tablet 200 mg PO BID 90 days #180 tabs 12/22/24 ferrous sulfate 325 mg (65 mg 325 mg PO BID #60 tabs 01/01/25 iron) tablet (iron) diclofenac sodium 1 % topical gel 2 g topical QID 30 days #100 grams 01/08/25 omeprazole 20 mg capsule,delayed 20 mg PO DAILY 10 days #10 caps 02/02/25 release prednisone 50 mg tablet 50 mg PO DAILY 4 days #4 tabs 02/02/25 hydrochlorothiazide 25 mg tablet 25 mg PO DAILY 90 days #90 tabs 02/05/25 meloxicam 7.5 mg tablet 7.5 mg PO DAILY coccyx pain 7 days 02/07/25 #30 tabs prednisone 20 mg tablet 40 mg (2 x 20 mg) PO DAILY COPD 02/08/25 exacerbation 5 days #10 tabs Allergies Allergy/AdvReac Type Severity Reaction Status Date / Time Penicillins (PENICILLINS) Allergy Intermediate ITCHING Verified 02/08/25 14:11 SEAFOOD Allergy Intermediate ITCHING/THROAT Uncoded 09/18/24 11:16 SWELLING shellfish Allergy Intermediate rash Uncoded 09/18/24 11:16 Review of Systems Constitutional: Constitutional: Reports as per HPI Eyes: Eyes: Reports as per HPI ENT: Reports as per HPI Cardiovascular: Cardiovascular: Reports as per HPI Respiratory: Respiratory: Reports as per HPI Gastrointestinal: Gastrointestinal: Reports as per HPI Genitourinary: Genitourinary: Reports as per HPI Musculoskeletal: Musculoskeletal: Reports as per HPI Integumentary/Breasts: Skin/Breast: Reports as per HPI Neurologic: Reports as per HPI Psychiatric: Psychiatric: Reports as per HPI Endocrine: Endocrine: Reports as per HPI Hematologic/Lymphatic: Hematologic/Lymphatic: Reports as per HPI Allergic/Immunologic: Allergic/Immunologic: Reports as per HPI [facility] Past Medical History Attestation statement: The following information was validated with the patient. (all information validated with the patient's ) Source: old records reviewed, obtained from family (patient's provided additional history and confirmed the history provided by the patient. ) and nursing notes reviewed Medical History Microcytic anemia Anemia Atrial flutter Hypoparathyroidism after procedure Left leg pain Encounter for physical examination Super-super obese Renal calculi Iron deficiency anemia Surgical History History of parathyroid surgery Family History Family History Mother Hypertension Father Colon cancer, Onset Age: 82 Stroke Social History Social History Household Members: Spouse Housing: House Are you a primary wound care technician to a significant other at home: No Do you presently have visiting nurse or other home services: No Alcohol intake: former Patient Tobacco Use Status: Former Tobacco user Tobacco use type: Cigarette e-Cigarette/Vaping Use: Never Used Second Hand Smoke Exposure: No Advance Directives: Yes Advance Directives on File: Yes Advance Directives Date on File: 01/28/22 service: No Current occupational status: unemployed Cognitive needs: Yes (cane) Hearing needs: No Vision needs: Yes (glasses) Physical Exam ED Vital Signs: Vital Signs - 24 hr 02/08/25 14:08 02/08/25 16:36 Temperature 97.7 F 97.7 F Pulse Rate 97 97 Respiratory Rate 18 18 Blood Pressure 128/65 128/65 Pulse Oximetry 97 97 Oxygen Delivery Method Room Air Room Air BMI result Body Mass Index 59.1 Const General: cooperative, no acute distress, alert and awake Nutritional Appearance: well nourished Orientation/consciousness: patient oriented x3 HENMT Head: Yes normal to inspection and Yes atraumatic Ears: hearing grossly normal bilaterally and external ears normal General nose exam: Normal external nose present, no nasal discharge noted and no epistaxis Face and sinus: Yes normal facial exam, No abrasion and No laceration Mouth: Normal oral and palatal mucosa present, no drooling and no muffled voice Eyes General: appearance normal, both eyes and all related structures Periorbital: periorbital findings normal Eyelids: Yes eyelids normal Conjunctivae: conjunctivae normal Pupils: Equal, round and reactive pupils present EOM: EOMs intact bilaterally Neck Neck: Yes normal visual inspection and Yes full ROM Resp Effort & Inspection: normal respiratory effort and able to speak in complete sentences Neuro General: patient oriented x3, moves all extremities and CN's II-XI intact bilaterally Cranial nerves: Yes Equal, round and reactive pupils present Cognition (Neuro): normal cognition Extrem General: Yes normal to inspection, Yes full ROM and Yes capillary refill normal Psych Appearance: grossly normal Mental Status: mental status grossly normal Affect: normal affect Attitude: cooperative Thought process: Normal thought process present Thought content: Normal thought content present Insight: Good insight present (Psych) Course Course Course Narrative: This is an RME: Additional HPI, ROS, PE not included below will be deferred to primary provider. RME assessment and note performed by: Mayda Whitley PA-C This is a 60-year-old male who presents emergency department with complaints of low back pain radiating down his left leg. States that he was here last week, prescribed prednisone which he has been taking with minimal relief. He will will like an MRI. Also reporting congestion, no chest pain or shortness of breath. Plan: viral swabs, xray Medications Administered Discontinued Medications Generic Name Dose Route Start Last Admin Trade Name Yen PRN Reason Stop Dose Admin Ketorolac Tromethamine 15 mg 02/08/25 16:03 02/08/25 16:15 Ketorolac Tromethamine 15 Mg/Ml Vial IM 02/08/25 16:04 15 mg ONCE ONE Administration Methylprednisolone Sodium Succinate 60 mg 02/08/25 16:03 02/08/25 16:16 Methylprednisolone Sod Succ 125 Mg/2 Ml Vial IM 02/08/25 16:04 60 mg ONCE ONE Administration Medical Decision Making Medical Decision Making [facility] Narrative: Patient is a 60 year old male with a history of gout, lumbar degenerative disc disease, atrial flutter, and iron deficiency anemia presenting to the emergency department today with continued back pain and body aches. Patient's physical exam was as noted in the physical exam portion of this note. Patient's COVID-19 and RSV testing was negative. Patient's influenza test was positive. Patient received IM Toradol and Solu-medrol for his back pain while he was in the department. I explained my physical exam findings as well as all test results to the patient and the patient's . I answered all questions asked by the patient and the patient's . I stressed the importance of the patient taking his medication as directed (either prescribed or as the over the counter packaging recommends). I stressed the importance of the patient following up with his primary care provider and a child support specialist. I stressed the importance of the patient returning to the emergency department immediately if his symptoms were to worsen or if he were to develop any dizziness, shortness of breath, difficulty breathing, chest pain, blurry vision, loss of vision, nausea, vomiting, abdominal pain, fever, chills, back pain, or any other complaints. Patient and the patient's verbalized agreement and understanding with this treatment plan and discharge. Differential Diagnosis Differential Diagnoses: The differential diagnosis associated with the presentation includes Low back pain Influenza Admission/Observation Consideration of admission/observation: Escalation of care including admission/observation considered Patient would have been admitted to the hospital had his work up had any findings where hospital admission was appropriate and his clinical presentation warranted hospital admission. Lab Data [facility] Lab Attestation statement: I reviewed the patient's lab results. My interpretation of these results are in the [facility] Rationale portion of this note. Labs: Lab Results 02/08/25 Range/Units 15:06 Influenza Type A (PCR) POSITIVE A (Negative) Influenza Type B (PCR) NEGATIVE (Negative) RSV RNA Qual (PCR) NEGATIVE (Negative) SARS-CoV-2 RNA (RT-PCR) NEGATIVE (Negative) S. pyogenes GrpA RITA Negative (Negative) Independent Historian Clinical information obtained from an independent historian. History obtained from or confirmed by: Spouse (patient's provided additional history and confirmed the history provided by the patient. ) Discharge Plan Discharge Clinical Impression: Influenza, Back pain Patient Disposition: Home, Self-Care Instructions: Influenza (DC), Back Pain (ED) Additional Instructions: IF you are prescribed home medications and/or you are taking over the counter medications at home - it is very important you continue to do so as prescribed / directed unless told otherwise. SI le recetan medicamentos y/o est? tomando medicamentos de venta sintia, es muy importante que contin?e haci?ndolo seg?n lo recetado/indicado a menos que le indiquen lo contrario. Follow up with your primary care provider. Return to the emergency department immediately if your symptoms worsen or if you develop any dizziness, shortness of breath, difficulty breathing, chest pain, blurry vision, loss of vision, nausea, vomiting, abdominal pain, fever, chills, back pain, or any other complaints. Stefano?seguimiento?con julio m?dico de atenci?n primaria. Acuda inmediatamente al servicio de urgencias si ilan s?ntomas empeoran o si presenta falta de aliento, dificultad para respirar, dolor tor?cico, mareos, aturdimiento, dolor de espalda, dolor abdominal, fiebre, escalofr?os o cualquier otro s?ntoma. If you do not have a primary care provider - call any of the below numbers to establish and follow up with a primary care provider. Si no tiene un proveedor de atenci?n primaria, llame a cualquiera de los n?meros que aparecen a continuaci?n para establecer y hacer seguimiento con un proveedor de atenci?n primaria. [facility] Primary Care ([place]) [phone] [place] [address], [address] [facility] Primary Care ([address]) [phone] [place] [address], [address] [facility], [address] [facility] Primary Care ([address]) [phone] [place] [address], [address] [facility], [address] [facility] Primary Care ([place]) [phone] [place] [address] 2 [facility], [address] [facility] Family Medicine [phone] [place] [address], [address] Please see the information below about our Patient Portal. If you are not yet enrolled in the [facility] Patient Portal, you will receive an enrollment email invitation following your visit to any [facility] setting. You may also self-enroll in the Patient Portal by visiting our website: [email or web address] The following information is required to access the Patient Portal: - Your [facility] Medical Record Number - Your personal home email address (must match what is in your electronic medical record, Registration staff can assist with this) - Name - Date of Capabilities of the Patient Portal: - Message some providers - View upcoming appointments - Access your health summary, medical history, and visit history - View current conditions and allergies - View procedure and lab results - View your medications, including guidelines, side effects, and precautions - Complete pre-appointment questionnaires requested by your provider - Ready summary reports of your office visits and procedures To access the Patient Portal Mobile Erlinda, follow these directions: - Search ReferralMD in the Erlinda Store or Addashop Store - Download the Erlinda - Search for [facility] - Enter your login/password Portal del paciente Si usted no esta inscrito en el portal de pacientes de [facility], recibira telma invitacion de inscripcion despues de julio visita al [facility] o al [facility] via correo electronico. Tambien puede inscribirse voluntariamente en el portal de pacientes visitando nuestra pagina web: [email or web address] La siguiente informacion sera requerida para acceder al portal: - Julio liza de historia medica de [facility] - Julio direccion de correo electronico personal - Nombre - Fecha de nacimiento Capacidades: Las siguientes capacidades estan disponibles en el portal de pacientes: - Enviar mensajes a algunos doctores - Verificar proximas citas - Acceso a julio historial de gissell, registro medico e historial de visitas - Hadley las condiciones actuales y alergias hadley procedimientos y resultados del laboratorio - Hadley ilan medicamentos, incluyendo las pautas - Efectos secundarios y precauciones - Completar o llenar formularios / cuestionarios de - Citas solicitadas por julio doctor - Leer los resumenes de reportes medicos de ilan visitas y procedimientos Gricelda acceder a la aplicacion movil: - [facility] en la Erlinda Store o Google Kamelio Store - Descargue la aplicacion - Krista [facility] - Ingrese julio nombre de usuario / Contrasena Prescriptions: New prednisone 20 mg tablet 40 mg PO DAILY 5 Days Qty: 10 0RF No Action (DME) cane Device See Rx Instructions .Route Qty: 1 0RF Rx Instructions: As directed (DME) Shower Chair Misc See Rx Instructions .Route Qty: 1 0RF Rx Instructions: As directed heavy duty shower chair (DME) Heavy duty cane See Rx Instructions .Route .MEDSUPPLY Qty: 1 0RF Rx Instructions: As directed (DME) blood pressure kit-extra large Kit See Rx Instructions .Route Qty: 1 0RF Rx Instructions: As directed magnesium oxide 400 mg magnesium tablet 400 mg PO BEDTIME 30 Days Qty: 30 6RF lidocaine 5 % adhesive patch,medicated 1 patch topical DAILY 30 Days Qty: 30 11RF Rx Instructions: leave on most painful area for up to 12 hrs cholecalciferol (vitamin D3) 25 mcg (1,000 unit) capsule 25 mcg PO DAILY 90 Days Qty: 90 1RF omeprazole 20 mg capsule,delayed release(DR/EC) 20 mg PO DAILY@0630 90 Days Qty: 90 1RF allopurinol 100 mg tablet 100 mg PO DAILY Qty: 90 1RF sulindac 200 mg tablet 200 mg PO BID 90 Days Qty: 180 1RF diclofenac sodium 1 % gel 2 g topical QID 30 Days Qty: 100 1RF Rx Instructions: apply to single elbow, wrist or hand; for hand includes palm/fingers/back of hand hydrochlorothiazide 25 mg tablet 25 mg PO DAILY 90 Days Qty: 90 3RF meloxicam 7.5 mg tablet 7.5 mg PO DAILY 7 Days Qty: 30 0RF ascorbic acid (vitamin C) [Vitamin C] 500 mg Tablet 500 mg PO DAILY Qty: 90 2RF ferrous sulfate [iron] 325 mg (65 mg iron) Tablet 325 mg PO BID Qty: 60 1RF prednisone 50 mg tablet 50 mg PO DAILY 4 Days Qty: 4 0RF omeprazole 20 mg capsule,delayed release(DR/EC) 20 mg PO DAILY 10 Days Qty: 10 0RF Referrals: [facility] [Provider Group, Neurosurgery] Referral Note: Call to establish and follow up with the child support specialist. Juancho Terrazas FNP-C [Primary Care Provider, Internal Medicine] Interventions: ED Discharge Assessment Last Done: 02/08/25 16:36 Discharge Date/Time: 02/08/25 16:36 Print Language: Mohawk
[2025-02-08 15:24] LABS: IDNOW Serial# 6674DD1D; Strep A Nucleic Acid Negative (Negative)
[2025-02-08 15:52] LABS: Resp Syncy Virus RNA Qual PCR NEGATIVE (Negative); SARS COV2 PCR INHOUSE NEGATIVE (Negative)
[2025-02-08 16:36] VITALS: BP 128/65; PULSE 97; RESP 18; TEMP 36.5; O2SAT 97
--- OUTSIDE RECORDS SUMMARY | 2025-02-08 23:15 | XMS_ITS | Clinical Summary ---
Author Organization [facility] Address [address] [place] [id number] Care Team Providers Care Drywall Applicator Name Role Phone Carolin Whitney MD Primary Care Provider [phone] Surgical History Surgery Date Site/Laterality Comments KNEE [...] on file Sexual Orientation Not on file Plan of Treatment Health Maintenance Due Date Last Done Comments DTaP,Tdap,and Td Vaccines (1 - Tdap) 1986 Hepatitis B Vaccines (1 of 3 - 19+ 3-dose series) 1986 Pneumococcal Vaccine: 50+ Ye ars (1 of 1 - PCV) 2017 Zoster Vaccines (1 of 2) 2017 Depression Screening 03/01/2024 COVID-19 Vaccine (1 - 2024-2 6 season) 2024 Influenza Vaccine [...] age to complete this topic Care Teams Drywall Applicator Relationship Specialty Start Date End Date Carolin Whitney MD [address] [place] [address] , [address] [facility] D[facility]B/A: [facility] WILLIAMS Carmichael PCP - General Internal Medicine 03/23/19
== END 2025-02-08 16:36 | disposition home or self-care (01) ==
PROVIDERS: Physician Assistant Medical; Emergency Provider Emergency Medicine
DX: J10.1 Influenza due to other identified influenza virus with other respiratory manifestations (principal); M54.50 Low back pain, unspecified; M79.10 Myalgia, unspecified site; R05.9 Cough, unspecified; R09.89 Other specified symptoms and signs involving the circulatory and respiratory systems; Z03.818 Encounter for observation for suspected exposure to other biological agents ruled out; Z87.891 Personal history of nicotine dependence
CPT/HCPCS: 71046; 87637; 87651; 96372; 99283; 99284; J1885; J2919

== ENCOUNTER → 2025-02-08 14:44 | Outpatient (BNV) | payer OTHER, SELFPAY | PROVIDERS: Emergency Provider Emergency Medicine; Visit Provider Radiology Diagnostic Radiology | DX: I51.7 Cardiomegaly (principal) | CPT/HCPCS: 71046 ==